=== PATIENT | female | born 1960 | race African-American/Black ===

== ENCOUNTER 2017-02-02 15:06 | Inpatient (IN) | payer MEDICARE, OTHER ==
--- NOTE | 2017-02-02 17:33 | HP ---
CIWA Score - CIWA Score Nausea/Vomitin-Mild Nausea/No Vomiting Muscle Tremors: 4-Moderate,w/Arms Extend Anxiety: 2 Agitation: 2 Paroxysmal Sweats: 1-Minimal Palms Moist Orientation: 3-Disoriented Date>2 days Tacttile Disturbances: 0-None Auditory Disturbances: 4-Moderate Hallucination Visual Disturbances: 0-None Headache: 3-Moderate CIWA-Ar Total Score: 20 Admission ROS BHS - HPI Chief Complaint: withdrawal sx Allergies/Adverse Reactions: Allergies Allergy/AdvReac Type Severity Reaction Status Date / Time chlordiazepoxide HCl Allergy Severe Swelling Verified 02/16/16 15:16 [From Librium] Beef Containing Products Allergy Mild Vomiting Verified 02/16/16 15:16 divalproex sodium Allergy Mild Rash Verified 02/16/16 15:16 [From Depakote] pork derived (porcine) Allergy Mild Vomiting Verified 02/16/16 15:16 [Pork derived (porcine)] quetiapine fumarate Allergy Mild Rash Verified 02/16/16 15:16 [From Seroquel] risperidone Allergy Unknown Rash Verified 02/16/16 15:16 lactose AdvReac Intermediate Verified 02/16/16 15:16 History of Present Illness: 56 years old female with long history of alcohol dependence, has asthma gerd and schizophrenia is admitted to detox Exam Limitations: No Limitations - Ebola screening Have you traveled outside of the country in the last 21 days: No Have you had contact with anyone from an Ebola affected area: No Have you been sick,other than usual withdrawal symptoms: No Do you have a fever: No - Review of Systems Constitutional: Chills, Changes in sleep, Weight Stable EENT: reports: Other (eye glasses) Respiratory: reports: SOB with Exertion Cardiac: reports: No Symptoms Reported GI: reports: Nausea, Poor Fluid Intake, Vomiting, Indigestion, Abdominal cramping : reports: No Symptoms Reported Musculoskeletal: reports: No Symptoms Reported Integumentary: reports: No Symptoms Reported Neuro: reports: Tremors Endocrine: reports: No Symptoms Reported Hematology: reports: No Symptoms Reported Psychiatric: reports: Judgement Intact, Depressed Other Systems: Reviewed and Negative Patient History - Patient Medical History Hx Anemia: No Hx Asthma: Yes Hx Chronic Obstructive Pulmonary Disease (COPD): No Hx Cancer: No Hx Cardiac Disorders: No Hx Congestive Heart Failure: No Hx Hypertension: Yes (alcohol withdrawal related) Hx Hypercholesterolemia: Yes ("HIGH LAST TIME I TOOK A TEST. I WATCH MY DIET") Hx Pacemaker: No HX Cerebrovascular Accident: No Hx Seizures: No Hx Dementia: No Hx Diabetes: No Hx Gastrointestinal Disorders: Yes Hx Liver Disease: No Hx Genitourinary Disorders: No Hx Sexually Transmitted Disorders: No Hx Renal Disease (ESRD): No Hx Thyroid Disease: No Hx Human Immunodeficiency Virus (HIV): No (NEGATIVE) Hx Hepatitis C: No Hx Depression: Yes Hx Suicide Attempt: Yes (2014 cut wrists) Hx Bipolar Disorder: No Hx Schizophrenia: No - Patient Surgical History Past Surgical History: Yes Hx Neurologic Surgery: No Hx Cataract Extraction: No Hx Cardiac Surgery: No Hx Lung Surgery: No Hx Breast Surgery: No Hx Breast Biopsy: No Hx Abdominal Surgery: No Hx Appendectomy: No Hx Cholecystectomy: No Hx Genitourinary Surgery: No Hx Section: Yes (X2) Hx Orthopedic Surgery: No Hx Hysterectomy: No Other Surgical History: incision and drainage, abscess, right armpit Anesthesia Reaction: No - PPD History Previous Implant?: Yes Documented Results: Negative w/proof Implanted On Prior [facility] Admission?: Yes Date: 04/13/15 Results: 0 mm PPD to be Administered?: Yes - Reproductive History Patient is a Female of Child Bearing Age (11 -55 yrs old): Yes Last Menstrual Period: 02/02/07 Patient : No - Smoking Cessation Smoking history: Never smoked Have you smoked in the past 12 months: No Aproximately how many cigarettes per day: 0 Cigars Per Day: 0 Hx Chewing Tobacco Use: No Initiated information on smoking cessation: Yes 'Breaking Loose' booklet given: 02/02/17 - Substance & Tx. History Hx Alcohol Use: Yes Hx Substance Use: No Substance Use Type: Alcohol Hx Substance Use Treatment: Yes - Substances Abused Alcohol Route: Oral Frequency: Daily Amount used: 3 BOTTLES OF WINE Age of first use: 17 Date of Last Use: 02/01/17 Family Disease History - Family Disease History Family Disease History: Respiratory: Grandparent (ASTHMA) Other Family History: never met parents Admission Physical Exam BHS - Vital Signs Vital Signs: Vital Signs - 24 hr 02/02/17 16:50 Temperature 97.9 F Pulse Rate 110 H Respiratory 18 Rate Blood Pressure 143/84 - Physical General Appearance: Yes: Appropriately Dressed, Moderate Distress, Obese, Tremorous, Irritable, Sweating, Anxious HEENTM: Yes: Hearing grossly Normal, Normal ENT Inspection, Normocephalic, Normal Voice Respiratory: Yes: Chest Non-Tender, Lungs Clear, Normal Breath Sounds, No Respiratory Distress, No Accessory Muscle Use Neck: Yes: Supple, Trachea in good position Breast: Yes: Breasts Symetrical Cardiology: Yes: Regular Rhythm, S1, S2, Tachycardia Abdominal: Yes: Non Tender, Soft Genitourinary: Yes: Within Normal Limits Back: Yes: Normal Inspection Musculoskeletal: Yes: full range of Motion, Gait Steady Extremities: Yes: Normal Range of Motion, Non-Tender, Tremors 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: Yes: Alert, Motor Strength 5/5, Normal Response, Depressed Affect Integumentary: Yes: Warm Lymphatic: Yes: Within Normal Limits - Diagnostic (1) Alcohol dependence with uncomplicated withdrawal Current Visit: Yes Status: Acute (2) Asthma Current Visit: Yes Status: Acute (3) Depression Current Visit: Yes Status: Suspected Qualifiers: Depression Type: dysthymia Qualified Code(s): F34.1 - Dysthymic disorder (4) Hypertension Current Visit: Yes Status: Acute Qualifiers: Hypertension type: other secondary hypertension Qualified Code(s): I15.8 - Other secondary hypertension Comment: alcohol withdrawal related (5) GERD (gastroesophageal reflux disease) Current Visit: Yes Status: Acute Qualifiers: Esophagitis presence: without esophagitis Qualified Code(s): K21.9 - Gastro-esophageal reflux disease without esophagitis Cleared for Admission S - Detox or Rehab [facility] Level of Care: Medically Managed Detox Regimen/Protocol: Valium S Breath Alcohol Content Breath Alcohol Content: 0 Vital Signs - Vital Signs Vital Signs Refused: No Temperature: 97.9 F Temperature Source: Oral Pulse Rate: 110 Respiratory Rate: 18 Blood Pressure: 143/84 BP Location: Left Arm Blood Pressure Position: Sitting - Height Height: 5 ft - Weight Weight: 192 lb Weight Measurement Method: Standing Scale Body Mass Index (BMI): 37.5 - Bowel Function Bowel Movement: Yes Urine Pregancy Test - Result Urine Test Results: Negative- NO Line Present Urine Drug Screen - Control Is Test Valid: Yes - Results Drug Screen Negative: No Urine Drug Screen Results: BZO-Benzodiazepines
[2017-02-02 17:38] VITALS: BMI 37.5
[2017-02-02] MEDS ORDERED: guaiFENesin/D-METHORPHAN HB 10 ML UNIT-DOSE CUPS PO PRN (17:46)
[2017-02-02] MEDS ORDERED: hydrOXYzine PAMOATE 50 MG CAPSULE (FP) PO PRN (17:46)
[2017-02-02] MEDS ORDERED: MENTHOL/PHENOL 1 EACH UD MM PRN (17:46)
[2017-02-02] MEDS ORDERED: MAG HYDROX/AL HYDROX/SIMETH 30 ML UNIT-DOSE CUP PO PRN (17:46)
[2017-02-02] MEDS ORDERED: ACETAMINOPHEN 325 MG TABLET (FP) PO PRN (17:46)
[2017-02-02] MEDS ORDERED: diphenhydrAMINE HCL 50 MG CAPSULE PO PRN (17:46)
[2017-02-02] MEDS ORDERED: MAGNESIUM HYDROX 2400MG/30ML ORAL SUSPENSION 30 ML CUP PO PRN (17:46)
[2017-02-02] MEDS ORDERED: diazePAM 5 MG TABLET PO PRN (17:46)
[2017-02-02] MEDS ORDERED: LOPERAMIDE HCL 2 MG CAPSULE PO PRN (17:46)
[2017-02-02] MEDS ORDERED: P-EPHED 60MG/TRIPROLIDI 2.5MG TABLET PO PRN (17:46)
[2017-02-02] MEDS ORDERED: MAGNESIUM CITRATE 300 ML BOTTLE PO PRN (17:46)
[2017-02-02] MEDS ORDERED: ALBUTEROL SO4 6.7 GM HFA INHALER IH PRN (17:49)
[2017-02-02] MEDS ORDERED: cloNIDine HCL 0.1 MG TABLET PO PRN (17:55)
[2017-02-02] MEDS ORDERED: diazePAM 5 MG TABLET PO ONE (18:15)
[2017-02-02] MEDS: RANITIDINE HCL 150 MG TABLET (FP) PO SCH (22:30)
[2017-02-02] MEDS: diazePAM 5 MG TABLET PO SCH (22:30)
[2017-02-02] MEDS: THIAMINE HCL 100 MG TABLET (FP) PO SCH (22:30)
[2017-02-03] MEDS: diazePAM 5 MG TABLET PO SCH ×3 (06:12→22:52)
--- NOTE | 2017-02-03 08:30 | CONSULT ---
[id number] [facility] Identifying data: This is 56 years old female with psychiatric hospitalization history intoxicated with: Alcohol, Benzodiazepins Substance Abuse History: Smoking Cessation. Smoking history: Never smoked. Have you smoked in the past 12 months: No. Aproximately how many cigarettes per day: 0. Cigars Per Day: 0. Hx Chewing Tobacco Use: No. Initiated information on smoking cessation: Yes. 'Breaking Loose' booklet given: . - Substance & Tx. History. Hx Alcohol Use: Yes. Hx Substance Use: No. Substance Use Type: Alcohol. Hx Substance Use Treatment: Yes. - Substances Abused. Alcohol. Route: Oral. Frequency: Daily. Amount used: 3 BOTTLES OF WINE. Age of first use: 17. Date of Last Use: 02/01/17 Medical History: Asthma, GERD, HTN, Obesity, Arthritis , Seizure history Psychiatric History: Patient reprots history of depression, reports taking prior to admission: Lexapro 10mg poqd, patirnt reports unclear psychiatric admission on amout 5 years ago at [facility] for [facility]. Physical/Sexual Abuse/Trauma History: Denies Additional Comment: Lexapro 10mg poqd Mental Status Exam - Mental Status Exam Alert and Oriented to: Person Cognitive Function: Fair Patient Appearance: Unkempt Mood: Sad Affect: Flat Patient Behavior: Sedated Speech Pattern: Delayed Voice Loudness: Mildly Soft/Quiet Thought Process: Circumstantial Thought Disorder: Being Controlled Hallucinations: Denies Suicidal Ideation: Denies Homicidal Ideation: Denies Sleep: Difficulty falling asleep Appetite: Weight gain Muscle strength/Tone: Mild Hypotonicity Gait/Station: Shuffling Additional Comments: Lexapro 10mg poqd Psychiatric Findings - Problem List ([place] 1, 2,3) (1) Alcohol dependence with uncomplicated withdrawal Status: Chronic (2) Depression Status: Chronic Qualifiers: Depression Type: dysthymia Qualified Code(s): F34.1 - Dysthymic disorder (3) Alcohol dependence, continuous Status: Chronic (4) Major depressive disorder, recurrent Status: Chronic (5) Major depressive disorder, recurrent, severe with psychotic features Status: Chronic (6) Obesity Status: Chronic Qualifiers: Obesity type: due to excess calories Obesity severity: non-morbid Qualified Code(s): E66.09 - Other obesity due to excess calories (7) Other and unspecified alcohol dependence, episodic drinking behavior Status: Chronic (8) Xanax use disorder, moderate, dependence Status: Chronic - Initial Treatment Plan Initial Treatment Plan: Lexapro 10mg poqd
--- NOTE | 2017-02-03 08:56 | PN ---
S CIWA - CIWA Score Nausea/Vomitin Muscle Tremors: 3 Anxiety: 3 Agitation: 3 Paroxysmal Sweats: 1-Minimal Palms Moist Orientation: 0-Oriented Tacttile Disturbances: 1-Very Mild Itch/Numbness Auditory Disturbances: 1-Very Mild Visual Disturbances: 1-Very Mild Sensitivity Headache: 2-Mild CIWA-Ar Total Score: 18 BHS Progress Note (SOAP) Subjective: ALERT,IRRITABLE,ANXIOUS,INTERRUPTED SLEEP,TREMOR Objective: 02/03/17 08:55 Vital Signs Temperature 97.6 F 02/03/17 06:24 Pulse Rate 78 02/03/17 06:24 Respiratory Rate 18 02/03/17 06:24 Blood Pressure 133/82 02/03/17 06:24 O2 Sat by Pulse Oximetry (%) EKG NSR,NORMAL ECG LABS PENDING Assessment: 02/03/17 08:56 WITHDRAWAL SYMPTOM Plan: CONTINUE DETOX
[2017-02-03 10:07] LABS: MCHC 33.3 g/dl (32.0-36.0); MEAN CELL VOLUME 93.1 fl (80-96); MEAN PLT VOLUME 9.3 fl (7.5-11.1); PLATELET COUNT 158 K/MM3 (134-434); RDW 14.5 % (11.6-15.6)
[2017-02-03 10:23] LABS: ALBUMIN 3.4 g/dl (3.4-5.0); ALK PHOS 64 U/L (45-117); ANION GAP 8 (8-16); BILIRUBIN,TOTAL 0.6 mg/dL (0.2-1.0); CALCIUM 8.9 mg/dL (8.5-10.1); CO2 30 mmol/L (21-32); CREATININE 0.7 mg/dL (0.55-1.02); GLUCOSE,RANDOM 99 mg/dL (74-106); SGOT/AST 18 U/L (15-37); SGPT/ALT 26 U/L (12-78); TOT PROT 6.9 g/dl (6.4-8.2)
[2017-02-03] MEDS: ESCITALOPRAM OXALATE 10 MG TABLET (FP) PO SCH (11:07)
[2017-02-03] MEDS: PRENATAL VITAMINS W/ FOLIC ACID TABLET (FP) PO SCH (11:07)
[2017-02-03] MEDS: RANITIDINE HCL 150 MG TABLET (FP) PO SCH ×2 (11:07→22:52)
[2017-02-03 14:13] LABS: SICKLE CELL SCREEN NEGATIVE (NEGATIVE)
--- NOTE | 2017-02-03 15:58 | EKG ---
Test Reason : Blood Pressure : / mmHG Vent. Rate : 084 BPM Atrial Rate : 084 BPM P-R Int : 162 ms QRS Dur : 092 ms QT Int : 382 ms P-R-T Axes : 068 034 043 degrees QTc Int : 451 ms NORMAL SINUS RHYTHM NORMAL ECG WHEN COMPARED WITH ECG OF 15-JUL-2012 12:12, NO SIGNIFICANT CHANGE WAS FOUND Confirmed by THELMA ORTIZ MD ([id number]) on 02/03/2017 3:58:27 PM Referred By: Confirmed By:THELMA ORTIZ MD
[2017-02-03] MEDS: THIAMINE HCL 100 MG TABLET (FP) PO SCH (22:52)
--- NOTE | 2017-02-04 09:23 | PN ---
S CIWA - CIWA Score Nausea/Vomitin Muscle Tremors: 3 Anxiety: 3 Agitation: 2 Paroxysmal Sweats: 1-Minimal Palms Moist Orientation: 0-Oriented Tacttile Disturbances: 1-Very Mild Itch/Numbness Auditory Disturbances: 1-Very Mild Visual Disturbances: 1-Very Mild Sensitivity Headache: 2-Mild CIWA-Ar Total Score: 17 BHS Progress Note (SOAP) Subjective: ALERT,IRRITABLE,ANXIOUS,INTERRUPTED SLEEP,TREMOR,DEPRESS Objective: 02/04/17 09:21 Vital Signs Temperature 98.2 F 02/04/17 06:14 Pulse Rate 96 H 02/04/17 06:14 Respiratory Rate 20 02/04/17 06:14 Blood Pressure 145/79 02/04/17 06:14 O2 Sat by Pulse Oximetry (%) Laboratory Last Values WBC 3.0 K/mm3 (4.0-10.0) L 02/03/17 07:00 RBC 4.02 M/mm3 (3.60-5.2) 02/03/17 07:00 Hgb 12.4 GM/dL (10.7-15.3) 02/03/17 07:00 Hct 37.4 % (32.4-45.2) 02/03/17 07:00 MCV 93.1 fl (80-96) 02/03/17 07:00 MCHC 33.3 g/dl (32.0-36.0) 02/03/17 07:00 RDW 14.5 % (11.6-15.6) 02/03/17 07:00 Plt Count 158 K/MM3 (134-434) 02/03/17 07:00 MPV 9.3 fl (7.5-11.1) 02/03/17 07:00 Sickle Cell Screen Negative (NEGATIVE) 02/03/17 07:00 Sodium 141 mmol/L (136-145) 02/03/17 07:00 Potassium 4.2 mmol/L (3.5-5.1) 02/03/17 07:00 Chloride 103 mmol/L (98-107) 02/03/17 07:00 Carbon Dioxide 30 mmol/L (21-32) 02/03/17 07:00 Anion Gap 8 (8-16) 02/03/17 07:00 BUN 15 mg/dL (7-18) D 02/03/17 07:00 Creatinine 0.7 mg/dL (0.55-1.02) 02/03/17 07:00 Creat Clearance w eGFR > 60 (>60) 02/03/17 07:00 Random Glucose 99 mg/dL (74-106) 02/03/17 07:00 Calcium 8.9 mg/dL (8.5-10.1) 02/03/17 07:00 Total Bilirubin 0.6 mg/dL (0.2-1.0) D 02/03/17 07:00 AST 18 U/L (15-37) 02/03/17 07:00 ALT 26 U/L (12-78) 02/03/17 07:00 Alkaline Phosphatase 64 U/L (45-117) 02/03/17 07:00 Total Protein 6.9 g/dl (6.4-8.2) 02/03/17 07:00 Albumin 3.4 g/dl (3.4-5.0) 02/03/17 07:00 RPR Titer Nonreactive (NONREACTIVE) 02/03/17 07:00 Assessment: 02/04/17 09:22 WITHDRAWAL SYMPTOM Plan: CONTINUE DETOX,PSYCHIATRIC REEVALUATION FOR DEPRESSION
[2017-02-04 10:13] LABS: URINE APPEARANCE CLEAR; URINE BILIRUBIN NEGATIVE (NEGATIVE); URINE BLOOD NEGATIVE (NEGATIVE); URINE COLOR LTYELLOW; URINE GLUCOSE (UA) NEGATIVE (NEGATIVE); URINE KETONE NEGATIVE (NEGATIVE); URINE LEUK ESTERASE NEGATIVE (NEGATIVE); URINE NITRITE NEGATIVE (NEGATIVE); URINE PROTEIN NEGATIVE (NEGATIVE); URINE UROBILINOGEN NEGATIVE E.U./dl (0.2-1.0)
[2017-02-04] MEDS: PRENATAL VITAMINS W/ FOLIC ACID TABLET (FP) PO SCH (10:30)
[2017-02-04] MEDS: diazePAM 5 MG TABLET PO SCH ×2 (10:31→22:38)
[2017-02-04] MEDS: RANITIDINE HCL 150 MG TABLET (FP) PO SCH ×2 (10:31→22:38)
[2017-02-04] MEDS: ESCITALOPRAM OXALATE 10 MG TABLET (FP) PO SCH (10:31)
[2017-02-04] MEDS: THIAMINE HCL 100 MG TABLET (FP) PO SCH (22:38)
[2017-02-05] MEDS: ESCITALOPRAM OXALATE 10 MG TABLET (FP) PO SCH (10:31)
[2017-02-05] MEDS: diazePAM 5 MG TABLET PO SCH ×2 (10:32→22:31)
[2017-02-05] MEDS: PRENATAL VITAMINS W/ FOLIC ACID TABLET (FP) PO SCH (10:32)
[2017-02-05] MEDS: RANITIDINE HCL 150 MG TABLET (FP) PO SCH ×2 (10:33→22:31)
--- NOTE | 2017-02-05 11:20 | PN ---
BHS Progress Note (SOAP) Subjective: Sweating,interrupted sleep,restless. Objective: 02/05/17 11:19 Vital Signs - 8 hr 02/05/17 02/05/17 03:30 06:00 Temperature 97.6 F Pulse Rate 72 Respiratory 18 20 Rate Blood Pressure 128/73 Laboratory Last Values WBC 3.0 K/mm3 (4.0-10.0) L 02/03/17 07:00 RBC 4.02 M/mm3 (3.60-5.2) 02/03/17 07:00 Hgb 12.4 GM/dL (10.7-15.3) 02/03/17 07:00 Hct 37.4 % (32.4-45.2) 02/03/17 07:00 MCV 93.1 fl (80-96) 02/03/17 07:00 MCHC 33.3 g/dl (32.0-36.0) 02/03/17 07:00 RDW 14.5 % (11.6-15.6) 02/03/17 07:00 Plt Count 158 K/MM3 (134-434) 02/03/17 07:00 MPV 9.3 fl (7.5-11.1) 02/03/17 07:00 Sickle Cell Screen Negative (NEGATIVE) 02/03/17 07:00 Sodium 141 mmol/L (136-145) 02/03/17 07:00 Potassium 4.2 mmol/L (3.5-5.1) 02/03/17 07:00 Chloride 103 mmol/L (98-107) 02/03/17 07:00 Carbon Dioxide 30 mmol/L (21-32) 02/03/17 07:00 Anion Gap 8 (8-16) 02/03/17 07:00 BUN 15 mg/dL (7-18) D 02/03/17 07:00 Creatinine 0.7 mg/dL (0.55-1.02) 02/03/17 07:00 Creat Clearance w eGFR > 60 (>60) 02/03/17 07:00 Random Glucose 99 mg/dL (74-106) 02/03/17 07:00 Calcium 8.9 mg/dL (8.5-10.1) 02/03/17 07:00 Total Bilirubin 0.6 mg/dL (0.2-1.0) D 02/03/17 07:00 AST 18 U/L (15-37) 02/03/17 07:00 ALT 26 U/L (12-78) 02/03/17 07:00 Alkaline Phosphatase 64 U/L (45-117) 02/03/17 07:00 Total Protein 6.9 g/dl (6.4-8.2) 02/03/17 07:00 Albumin 3.4 g/dl (3.4-5.0) 02/03/17 07:00 Urine Color Ltyellow 02/04/17 07:00 Urine Appearance Clear 02/04/17 07:00 Urine pH 6.0 (5.0-8.0) 02/04/17 07:00 Ur Specific [place] 1.017 (1.001-1.035) 02/04/17 07:00 Urine Protein Negative (NEGATIVE) 02/04/17 07:00 Urine Glucose (UA) Negative (NEGATIVE) 02/04/17 07:00 Urine Ketones Negative (NEGATIVE) 02/04/17 07:00 Urine Blood Negative (NEGATIVE) 02/04/17 07:00 Urine Nitrite Negative (NEGATIVE) 02/04/17 07:00 Urine Bilirubin Negative (NEGATIVE) 02/04/17 07:00 Urine Urobilinogen Negative E.U./dl (0.2-1.0) 02/04/17 07:00 Ur Leukocyte Esterase Negative (NEGATIVE) 02/04/17 07:00 RPR Titer Nonreactive (NONREACTIVE) 02/03/17 07:00 labs noted Assessment: 02/05/17 11:20 Withdrawal sx. Plan: Continue detox
--- NOTE | 2017-02-05 13:26 | PN ---
[facility] Progress Note Note: Psychiatry Attending's note (follow up) : Answering request for re-consult. Reason :unclear.Details not offered. Progress notes reviewed.Met with patient on this date. Ms Mott states that she has already been seen by " another doctor ". The patient is ambulatory,calm,friendly and well-mannered.Cognitively intact. She endorses good sleep,improved appetite,increased energy level and motivation. " My plan is to go downstairs to the rehab floor.I need to take good care of myself ". Mental status : No hallucinations,no delusions.Euthymic mood with appropriate/bright affect. Clear,logical,spontaneous and goal-directed speech.Adequate personal hygiene. Ms Mott denies suicidal/homicidal ideation,intent or plan.Patient is future- oriented. Baseline.Not a danger to self or others.No specific request from the patient.Doing fine. Uneventful detoxification treatment.Well tolerated.Benign hospital course. No indication for psychiatric intervention.
[2017-02-05] MEDS: THIAMINE HCL 100 MG TABLET (FP) PO SCH (22:31)
[2017-02-06] MEDS ORDERED: diazePAM 5 MG TABLET PO SCH (10:00)
[2017-02-06] MEDS: ESCITALOPRAM OXALATE 10 MG TABLET (FP) PO SCH (10:23)
[2017-02-06] MEDS: PRENATAL VITAMINS W/ FOLIC ACID TABLET (FP) PO SCH (10:23)
[2017-02-06] MEDS: RANITIDINE HCL 150 MG TABLET (FP) PO SCH ×2 (10:23→22:48)
--- NOTE | 2017-02-06 12:18 | PN ---
S Progress Note (SOAP) Subjective: ALERT,IRRITABLE,ANXIOUS,INTERRUPTED SLEEP Objective: 02/06/17 12:18 Vital Signs Temperature 98.2 F 02/06/17 10:00 Pulse Rate 94 H 02/06/17 10:00 Respiratory Rate 18 02/06/17 10:00 Blood Pressure 135/76 02/06/17 10:00 O2 Sat by Pulse Oximetry (%) Assessment: 02/06/17 12:18 WITHDRAWAL SYMPTOM Plan: CONTINUE DETOX
[2017-02-06] MEDS: THIAMINE HCL 100 MG TABLET (FP) PO SCH (22:48)
--- NOTE | 2017-02-07 08:39 | DS ---
[facility] Detox Discharge Summary Admission Date: 02/02/17 Discharge Date: 02/07/17 - History Present History: Alcohol Dependence, Sedative Dependence - Physical Exam Results Vital Signs: Vital Signs Temperature 97.5 F L 02/07/17 06:00 Pulse Rate 70 02/07/17 06:00 Respiratory Rate 18 02/07/17 06:00 Blood Pressure 139/77 02/07/17 06:00 O2 Sat by Pulse Oximetry (%) - Treatment Hospital Course: Detox Protocol Followed, Detoxed Safely, Responded well, Discharged Condition Good - Medication Discharge Medications: Ambulatory Orders Albuterol Sulfate Inhaler - [Ventolin HFA Inhaler -] 2 inh IH Q4HPO PRN #30 inh 01/21/14 Escitalopram Oxalate [Lexapro -] 10 mg PO DAILY #30 tablet 02/17/16 Escitalopram Oxalate [Lexapro -] 10 mg PO DAILY #30 tablet 02/03/17 Esomeprazole Magnesium 40 mg PO DAILY #30 02/07/17 - Diagnosis (1) Alcohol dependence with uncomplicated withdrawal Current Visit: Yes Status: Chronic (2) Asthma Current Visit: Yes Status: Chronic (3) GERD (gastroesophageal reflux disease) Current Visit: Yes Status: Chronic Qualifiers: Esophagitis presence: without esophagitis Qualified Code(s): K21.9 - Gastro-esophageal reflux disease without esophagitis (4) Hypertension Current Visit: Yes Status: Chronic Qualifiers: Hypertension type: essential hypertension Qualified Code(s): I10 - Essential (primary) hypertension (5) Xanax use disorder, moderate, dependence Current Visit: Yes Status: Chronic (6) Depression Current Visit: Yes Status: Chronic Qualifiers: Depression Type: dysthymia Qualified Code(s): F34.1 - Dysthymic disorder (7) Arthritis Current Visit: Yes Status: Chronic (8) Obesity Current Visit: Yes Status: Chronic Qualifiers: Obesity type: due to excess calories Obesity severity: non-morbid Qualified Code(s): E66.09 - Other obesity due to excess calories - AMA Did Patient Leave Against Medical Advice: No
[2017-02-07 09:56] VITALS: BP 141/73; PULSE 86; TEMP 98.1
[2017-02-07] MEDS: ESCITALOPRAM OXALATE 10 MG TABLET (FP) PO SCH (10:45)
[2017-02-07] MEDS: RANITIDINE HCL 150 MG TABLET (FP) PO SCH (10:45)
[2017-02-07] MEDS: PRENATAL VITAMINS W/ FOLIC ACID TABLET (FP) PO SCH (10:46)
== END 2017-02-07 11:40 | disposition other institution (70) | DRG 897 ==
LOC: YASAS 15:06 → Y6N 17:37
PROVIDERS: ADMIT Internal Medicine Addiction Medicine; ATTEND Internal Medicine Addiction Medicine
PROC: HZ2ZZZZ Detoxification Services for Substance Abuse Treatment (ICD-10-PCS; principal; 2017-02-07)
DX: F13.230 Sedative, hypnotic or anxiolytic dependence with withdrawal, uncomplicated (principal); F33.3 Major depressive disorder, recurrent, severe with psychotic symptoms; F10.230 Alcohol dependence with withdrawal, uncomplicated; F34.1 Dysthymic disorder; I10 Essential (primary) hypertension; K21.9 Gastro-esophageal reflux disease without esophagitis; M12.9 Arthropathy, unspecified; E66.09 Other obesity due to excess calories; Z68.37 Body mass index [BMI] 37.0-37.9, adult
CPT/HCPCS: 36415; 80053; 81003; 85027; 85660; 86593; 93005; 93010

== ENCOUNTER 2018-11-20 12:52 | Inpatient (IN) | payer OTHER ==
[2018-11-20 13:54] VITALS: BMI 37.0
--- NOTE | 2018-11-20 15:13 | HP ---
CIWA Score Nausea/Vomitin (vomiting x 1) Muscle Tremors: 3 Anxiety: 2 Agitation: 0-Normal Activity Paroxysmal Sweats: 3 Orientation: 1-Uncertain about Date Tacttile Disturbances: 0-None Auditory Disturbances: 0-None Visual Disturbances: 0-None Headache: 3-Moderate CIWA-Ar Total Score: 15 - Admission Criteria OASAS Guidelines: Admission for Medically Managed Detox: Requires at least one of the followin. CIWA greater than 12 2. Seizures within the past 24 hours 3. Delirium tremens within the past 24 hours 4. Hallucinations within the past 24 hours 5. Acute intervention needed for co occurring medical disorder 6. Acute intervention needed for co occurring psychiatric disorder 7. Severe withdrawal that cannot be handled at a lower level of care (continued vomiting, continued diarrhea, abnormal vital signs) requiring intravenous medication and/or fluids 8. Admission ROS [facility] - [facility] Chief Complaint: Alcohol withdrawal symptoms Allergies/Adverse Reactions: Allergies Allergy/AdvReac Type Severity Reaction Status Date / Time chlordiazepoxide HCl Allergy Severe Swelling Verified 08/02/18 19:19 [From Librium] Beef Containing Products Allergy Mild Vomiting Verified 08/02/18 19:19 divalproex sodium Allergy Mild Rash Verified 08/02/18 19:19 [From Depakote] pork derived (porcine) Allergy Mild Vomiting Verified 08/02/18 19:19 [Pork derived (porcine)] quetiapine fumarate Allergy Mild Rash Verified 08/02/18 19:19 [From Seroquel] risperidone Allergy Unknown Rash Verified 08/02/18 19:19 lactose AdvReac Intermediate Verified 08/02/18 19:19 History of Present Illness: 58 years old female with a long history of alcohol dependence is seeking admission to detox. Patient has multiple admissions to detox, last for the period 08/02/2018 - 08/06/2018. She reports 9 months of sobriety. She has medical history of Asthma, Hypertension, GERD, COPD, Hyperlipidemia, Osteoarthritis of the knees and depression. She reports suicide attempt in 1999 and denies suicidal ideation at this time. Exam Limitations: No Limitations - Ebola screening Have you traveled outside of the country in the last 21 days: No (N) Have you had contact with anyone from an Ebola affected area: No Have you been sick,other than usual withdrawal symptoms: No Do you have a fever: No - Review of Systems Constitutional: Chills, Loss of Appetite, Malaise, Night Sweats, Changes in sleep EENT: reports: Sinus Pressure Respiratory: reports: Shortness of Breath Cardiac: reports: No Symptoms Reported GI: reports: Poor Appetite, Poor Fluid Intake, Vomiting, Abdominal cramping : reports: No Symptoms Reported Musculoskeletal: reports: Back Pain, Muscle Pain, Muscle Weakness Integumentary: reports: Dryness Neuro: reports: Tremors Endocrine: reports: No Symptoms Reported Hematology: reports: No Symptoms Reported Psychiatric: reports: Anxious, Depressed Other Systems: Reviewed and Negative Patient History - Patient Medical History Hx Anemia: No Hx Asthma: Yes (Albuterol) Hx Chronic Obstructive Pulmonary Disease (COPD): Yes (Not on medication) Hx Cancer: No Hx Cardiac Disorders: No Hx Congestive Heart Failure: No Hx Hypertension: Yes (Not on medication) Hx Hypercholesterolemia: Yes (Not on medication) Hx Pacemaker: No HX Cerebrovascular Accident: No Hx Seizures: No Hx Dementia: No Hx Diabetes: No Hx Gastrointestinal Disorders: Yes (GERD -Prilosec) Hx Liver Disease: No Hx Genitourinary Disorders: No Hx Sexually Transmitted Disorders: No Hx Renal Disease (ESRD): No Hx Thyroid Disease: No Hx Human Immunodeficiency Virus (HIV): No (NEGATIVE 2016) Hx Hepatitis C: No Hx Depression: Yes (MDD diagnosed at 16 y.o.- Lexapro) Hx Suicide Attempt: Yes (Denies suicidal idation at this time) Hx Bipolar Disorder: No Hx Schizophrenia: No Other Medical History: Osteoarthritis - Not on medication - Patient Surgical History Past Surgical History: Yes Hx Neurologic Surgery: No Hx Cataract Extraction: No Hx Cardiac Surgery: No Hx Lung Surgery: No Hx Breast Surgery: No Hx Breast Biopsy: No Hx Abdominal Surgery: No Hx Appendectomy: No Hx Cholecystectomy: No Hx Genitourinary Surgery: No Hx Section: Yes (1981, 1982) Hx Orthopedic Surgery: No Hx Hysterectomy: No Other Surgical History: incision and drainage, abscess, right armpit Anesthesia Reaction: No - PPD History Previous Implant?: Yes Documented Results: Negative w/proof Implanted On Prior [facility] Admission?: Yes Date: 08/04/18 Results: 0 mm PPD to be Administered?: No - Reproductive History Patient is a Female of Child Bearing Age (11 -55 yrs old): Yes Last Menstrual Period: 11/22/01 LMP comment: Menopausa Patient : No - Smoking Cessation Smoking history: Never smoked Have you smoked in the past 12 months: No Aproximately how many cigarettes per day: 0 Cigars Per Day: 0 Hx Chewing Tobacco Use: No Initiated information on smoking cessation: No - Substance & Tx. History Hx Alcohol Use: Yes Hx Substance Use: No Substance Use Type: Alcohol Hx Substance Use Treatment: Yes ([facility]) - Substances Abused Alcohol Route: Oral Frequency: Daily Amount used: 4 bottles of red wine, 1 shot of bicardy rum Age of first use: 17 Date of Last Use: 11/20/18 Family Disease History - Family Disease History Family Disease History: Respiratory: Grandparent (ASTHMA) Admission Physical Exam [facility] - Vital Signs Vital Signs: Vital Signs - 24 hr 11/20/18 13:50 Temperature 98.0 F Pulse Rate 101 H Respiratory 19 Rate Blood Pressure 147/82 - Physical General Appearance: Yes: Moderate Distress, Tremorous, Irritable, Anxious HEENTM: Yes: EOMI, Normal ENT Inspection, Normal Voice, BETH, Nasal Congestion Respiratory: Yes: Wheezing Neck: Yes: Supple Breast: Yes: Breast Exam Deferred Cardiology: Yes: Tachycardia Abdominal: Yes: Normal Bowel Sounds, Soft Genitourinary: Yes: Within Normal Limits Back: Yes: Normal Inspection Extremities: Yes: Tremors 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, Alert, Normal Mood/Affect Integumentary: Yes: Warm Lymphatic: Yes: Within Normal Limits - Diagnostic (1) Osteoarthritis Current Visit: Yes Status: Chronic Qualifiers: Osteoarthritis location: knee Laterality: bilateral (2) Alcohol dependence with uncomplicated withdrawal Current Visit: Yes Status: Chronic (3) Arthritis Current Visit: No Status: Chronic (4) Asthma Current Visit: Yes Status: Chronic (5) Depression Current Visit: No Status: Chronic Qualifiers: Depression Type: unspecified Qualified Code(s): F32.9 - Major depressive disorder, single episode, unspecified (6) GERD (gastroesophageal reflux disease) Current Visit: Yes Status: Chronic Qualifiers: Esophagitis presence: without esophagitis Qualified Code(s): K21.9 - Gastro -esophageal reflux disease without esophagitis (7) Hypertension Current Visit: Yes Status: Chronic Qualifiers: Hypertension type: unspecified Qualified Code(s): I10 - Essential (primary ) hypertension Comment: alcohol withdrawal related Cleared for Admission [facility] - Detox or Rehab [facility] Level of Care: Medically Managed Detox Regimen/Protocol: Librium [facility] Breath Alcohol Content Breath Alcohol Content: 0 Urine Pregancy Test - Result Urine Test Results: Negative- NO Line Present Urine Drug Screen - Results Drug Screen Negative: No Urine Drug Screen Results: BZO-Benzodiazepines
[2018-11-20] MEDS ORDERED: ACETAMINOPHEN 325 MG TABLET (FP) PO PRN (15:32)
[2018-11-20] MEDS ORDERED: MAGNESIUM CITRATE 300 ML BOTTLE PO PRN (15:32)
[2018-11-20] MEDS ORDERED: MENTHOL/PHENOL 1 EACH UD MM PRN (15:32)
[2018-11-20] MEDS ORDERED: MAGNESIUM HYDROX 2400MG/30ML ORAL SUSPENSION 30 ML CUP PO PRN (15:32)
[2018-11-20] MEDS ORDERED: diazePAM 5 MG TABLET PO PRN (15:32)
[2018-11-20] MEDS ORDERED: guaiFENesin/D-METHORPHAN HB 10 ML UNIT-DOSE CUPS PO PRN (15:32)
[2018-11-20] MEDS ORDERED: LOPERAMIDE HCL 2 MG CAPSULE PO PRN (15:32)
[2018-11-20] MEDS ORDERED: diazePAM 5 MG TABLET PO ONE (16:00)
[2018-11-20] MEDS: ALBUTEROL SO4 8 GM HFA INHALER IH PRN ×2 (16:41→21:55)
[2018-11-20] MEDS: diazePAM 5 MG TABLET PO SCH (21:54)
[2018-11-20] MEDS ORDERED: MELATONIN 5 MG TABLETS PO PRN (22:00)
[2018-11-20] MEDS: THIAMINE HCL 100 MG TABLET (FP) PO SCH (22:02)
[2018-11-21] MEDS: diazePAM 5 MG TABLET PO SCH ×3 (05:52→23:53)
[2018-11-21] MEDS: ALBUTEROL SO4 8 GM HFA INHALER IH PRN (07:22)
[2018-11-21] MEDS: PRENATAL VITAMINS W/ FOLIC ACID TABLET (FP) PO SCH (10:25)
[2018-11-21 11:00] LABS: ALBUMIN 3.8 g/dl (3.4-5.0); ALK PHOS 73 U/L (45-117); ANION GAP 6 MMOL/L (8-16); BILIRUBIN,TOTAL 0.4 mg/dL (0.2-1); BLOOD UREA NITROGEN 11 mg/dL (7-18); CALCIUM 8.8 mg/dL (8.5-10.1); CHLORIDE 105 mmol/L (98-107); CO2 29 mmol/L (21-32); CREATININE 0.7 mg/dL (0.55-1.3); GLUCOSE,RANDOM 95 mg/dL (74-106); POTASSIUM 4.2 mmol/L (3.5-5.1); SGOT/AST 31 U/L (15-37); SGPT/ALT 36 U/L (13-61); SODIUM 140 mmol/L (136-145); TOT PROT 7.4 g/dl (6.4-8.2)
[2018-11-21 11:20] LABS: HEMATOCRIT 39.8 % (32.4-45.2); HEMOGLOBIN 13.7 GM/dL (10.7-15.3); MCHC 34.4 g/dl (32.0-36.0); MEAN PLT VOLUME 10.6 fl (7.5-11.1); PLATELET COUNT 159 K/MM3 (134-434); RBC 4.28 M/mm3 (3.60-5.2); RDW 15.5 % (11.6-15.6); WHITE BLOOD COUNT 4.6 K/mm3 (4.0-10.0)
--- NOTE | 2018-11-21 12:17 | PN ---
S CIWA - CIWA Score Nausea/Vomitin Muscle Tremors: 3 Anxiety: 2 Agitation: 2 Paroxysmal Sweats: 3 Orientation: 0-Oriented Tacttile Disturbances: 1-Very Mild Itch/Numbness Auditory Disturbances: 0-None Visual Disturbances: 0-None Headache: 0-None Present CIWA-Ar Total Score: 13 [facility] Progress Note (SOAP) Subjective: interrupted sleep, sweats, shakes, Objective: 11/21/18 12:14 Vital Signs Temperature 97.7 F 11/21/18 09:28 Pulse Rate 97 H 11/21/18 09:28 Respiratory Rate 18 11/21/18 09:28 Blood Pressure 124/66 11/21/18 09:28 O2 Sat by Pulse Oximetry (%) Laboratory Tests 11/21/18 11/21/18 11/21/18 07:50 07:50 07:50 WBC 4.6 RBC 4.28 Hgb 13.7 Hct 39.8 MCV 93.0 MCH 32.0 MCHC 34.4 RDW 15.5 Plt Count 159 MPV 10.6 D Platelet Comment No clumping noted Sodium 140 Potassium 4.2 Chloride 105 Carbon Dioxide 29 Anion Gap 6 L BUN 11 Creatinine 0.7 Creat Clearance w eGFR > 60 Random Glucose 95 Calcium 8.8 Total Bilirubin 0.4 AST 31 ALT 36 Alkaline Phosphatase 73 Total Protein 7.4 Albumin 3.8 RPR Titer HIV 1&2 Antibody Screen Negative HIV P24 Antigen Negative 11/21/18 07:50 WBC RBC Hgb Hct MCV MCH MCHC RDW Plt Count MPV Platelet Comment Sodium Potassium Chloride Carbon Dioxide Anion Gap BUN Creatinine Creat Clearance w eGFR Random Glucose Calcium Total Bilirubin AST ALT Alkaline Phosphatase Total Protein Albumin RPR Titer Nonreactive HIV 1&2 Antibody Screen HIV P24 Antigen pt aox3in nad ambulating , mild tremor Assessment: 11/21/18 12:15 withdrawal sx's Plan: cont. detox increase fluids
[2018-11-21] MEDS: BUDESONIDE/FORMETEROL FUMARATE 80/4.5 mcg INHALER IH SCH (23:51)
[2018-11-21] MEDS: THIAMINE HCL 100 MG TABLET (FP) PO SCH (23:54)
[2018-11-22] MEDS: MAG HYDROX/AL HYDROX/SIMETH 30 ML UNIT-DOSE CUP PO PRN ×2 (05:03→17:27)
[2018-11-22] MEDS: IBUPROFEN 400 MG TABLET (FP) PO PRN (06:23)
[2018-11-22] MEDS: PRENATAL VITAMINS W/ FOLIC ACID TABLET (FP) PO SCH (10:16)
[2018-11-22] MEDS: diazePAM 5 MG TABLET PO SCH ×2 (10:16→22:35)
[2018-11-22] MEDS: BUDESONIDE/FORMETEROL FUMARATE 80/4.5 mcg INHALER IH SCH ×2 (10:17→22:35)
--- NOTE | 2018-11-22 12:27 | PN ---
[facility] CIWA - CIWA Score Nausea/Vomitin-No Nausea/No Vomiting Muscle Tremors: 3 Anxiety: 3 Agitation: 3 Paroxysmal Sweats: 3 Orientation: 0-Oriented Tacttile Disturbances: 0-None Auditory Disturbances: 0-None Visual Disturbances: 0-None Headache: 0-None Present CIWA-Ar Total Score: 12 [facility] Progress Note (SOAP) Subjective: sweats shakes interrupted sleep body aches diarrhea Objective: 11/22/18 12:57 Vital Signs Temperature 97.9 F 11/22/18 09:35 Pulse Rate 101 H 11/22/18 09:35 Respiratory Rate 20 11/22/18 09:35 Blood Pressure 130/55 L 11/22/18 09:35 O2 Sat by Pulse Oximetry (%) Laboratory Tests 11/21/18 11/21/18 11/21/18 07:50 07:50 07:50 WBC 4.6 RBC 4.28 Hgb 13.7 Hct 39.8 MCV 93.0 MCH 32.0 MCHC 34.4 RDW 15.5 Plt Count 159 MPV 10.6 D Platelet Comment No clumping noted Sodium 140 Potassium 4.2 Chloride 105 Carbon Dioxide 29 Anion Gap 6 L BUN 11 Creatinine 0.7 Creat Clearance w eGFR > 60 Random Glucose 95 Calcium 8.8 Total Bilirubin 0.4 AST 31 ALT 36 Alkaline Phosphatase 73 Total Protein 7.4 Albumin 3.8 RPR Titer HIV 1&2 Antibody Screen Negative HIV P24 Antigen Negative 11/21/18 07:50 WBC RBC Hgb Hct MCV MCH MCHC RDW Plt Count MPV Platelet Comment Sodium Potassium Chloride Carbon Dioxide Anion Gap BUN Creatinine Creat Clearance w eGFR Random Glucose Calcium Total Bilirubin AST ALT Alkaline Phosphatase Total Protein Albumin RPR Titer Nonreactive HIV 1&2 Antibody Screen HIV P24 Antigen aaox3 ambulating no acute distress Assessment: 11/22/18 12:57 withdrawal sx Plan: continue detox increase fluids immodium prn
[2018-11-22] MEDS: ALBUTEROL SO4 8 GM HFA INHALER IH PRN (22:35)
[2018-11-22] MEDS: THIAMINE HCL 100 MG TABLET (FP) PO SCH (22:36)
--- NOTE | 2018-11-23 09:02 | PN ---
[facility] Progress Note (SOAP) Subjective: feeling better little anxiety Objective: 11/23/18 08:57 Vital Signs Temperature 98.8 F 11/23/18 06:03 Pulse Rate 102 H 11/23/18 06:03 Respiratory Rate 20 11/23/18 06:03 Blood Pressure 132/77 11/23/18 06:03 O2 Sat by Pulse Oximetry (%) aaox3 ambulating no acute distress Assessment: 11/23/18 08:58 mild withdrawal sx Plan: continue detox increase fluids d/c in am
[2018-11-23] MEDS: diazePAM 5 MG TABLET PO SCH ×2 (10:04→22:30)
[2018-11-23] MEDS: BUDESONIDE/FORMETEROL FUMARATE 80/4.5 mcg INHALER IH SCH ×2 (10:04→22:31)
[2018-11-23] MEDS: PRENATAL VITAMINS W/ FOLIC ACID TABLET (FP) PO SCH (10:05)
[2018-11-23] MEDS: ALBUTEROL SO4 8 GM HFA INHALER IH PRN ×2 (11:35→20:58)
[2018-11-23] MEDS: P-EPHED 60MG/TRIPROLIDI 2.5MG TABLET PO PRN (20:58)
[2018-11-23] MEDS: THIAMINE HCL 100 MG TABLET (FP) PO SCH (22:30)
[2018-11-24] MEDS: P-EPHED 60MG/TRIPROLIDI 2.5MG TABLET PO PRN (02:19)
[2018-11-24] MEDS: IBUPROFEN 400 MG TABLET (FP) PO PRN (05:59)
[2018-11-24] MEDS ORDERED: diazePAM 5 MG TABLET PO SCH ×2 (06:00→10:00)
--- NOTE | 2018-11-24 09:02 | DS ---
[facility] Detox Discharge Summary Admission Date: 11/20/18 Discharge Date: 11/24/18 - History Present History: Alcohol Dependence - Physical Exam Results Vital Signs: Vital Signs Temperature 97.5 F L 11/24/18 07:50 Pulse Rate 92 H 11/24/18 07:50 Respiratory Rate 20 11/24/18 07:50 Blood Pressure 116/72 11/24/18 07:50 O2 Sat by Pulse Oximetry (%) - Treatment Hospital Course: Detox Protocol Followed, Detoxed Safely, Responded well, Discharged Condition Good, Rehab Referral Accepted - Medication Discharge Medications: Ambulatory Orders Escitalopram Oxalate [Lexapro -] 10 mg PO DAILY #30 tablet 02/17/16 Esomeprazole Magnesium 40 mg PO DAILY #30 02/07/17 Escitalopram Oxalate [Lexapro -] 10 mg PO DAILY #30 tablet 08/03/18 Albuterol Sulfate Inhaler - [Ventolin HFA Inhaler -] 2 inh IH Q4HPO PRN #1 inh 08/06/18 - Diagnosis (1) Alcohol dependence with uncomplicated withdrawal Current Visit: Yes Status: Chronic (2) Asthma Current Visit: Yes Status: Chronic (3) GERD (gastroesophageal reflux disease) Current Visit: Yes Status: Chronic Qualifiers: Esophagitis presence: without esophagitis Qualified Code(s): K21.9 - Gastro -esophageal reflux disease without esophagitis (4) Hypertension Current Visit: Yes Status: Chronic Qualifiers: Hypertension type: unspecified Qualified Code(s): I10 - Essential (primary ) hypertension (5) Osteoarthritis Current Visit: Yes Status: Chronic Qualifiers: Osteoarthritis location: knee Laterality: bilateral (6) Alcohol-induced mood disorder Current Visit: No Status: Acute (7) Depressive disorder Current Visit: No Status: Acute (8) Arthritis Current Visit: No Status: Chronic (9) Depression Current Visit: No Status: Chronic Qualifiers: Depression Type: unspecified Qualified Code(s): F32.9 - Major depressive disorder, single episode, unspecified (10) Major depressive disorder, recurrent Current Visit: No Status: Chronic (11) Obesity Current Visit: No Status: Chronic Qualifiers: Obesity type: due to excess calories (12) Seizure Current Visit: No Status: Chronic (13) Schizophrenia Current Visit: No Status: Suspected Qualifiers: Schizophrenia type: unspecified Qualified Code(s): F20.9 - Schizophrenia, unspecified - AMA Did Patient Leave Against Medical Advice: No (going home)
[2018-11-24 09:17] VITALS: BP 152/74; PULSE 93; TEMP 97.9
== END 2018-11-24 09:00 | disposition home or self-care (01) | DRG 897 ==
LOC: YASAS 12:52 → Y6N 15:38
PROC: HZ2ZZZZ Detoxification Services for Substance Abuse Treatment (ICD-10-PCS; principal; 2018-11-20)
DX: F10.230 Alcohol dependence with withdrawal, uncomplicated (principal); F33.9 Major depressive disorder, recurrent, unspecified; F10.24 Alcohol dependence with alcohol-induced mood disorder; F20.9 Schizophrenia, unspecified; I10 Essential (primary) hypertension; K21.9 Gastro-esophageal reflux disease without esophagitis; J45.909 Unspecified asthma, uncomplicated; M17.0 Bilateral primary osteoarthritis of knee; R00.0 Tachycardia, unspecified; E66.9 Obesity, unspecified; Z68.37 Body mass index [BMI] 37.0-37.9, adult; Z86.69 Personal history of other diseases of the nervous system and sense organs; Z88.8 Allergy status to other drugs, medicaments and biological substances; Z91.5 Personal history of self-harm
CPT/HCPCS: 36415; 80053; 85027; 86593; 87389

== ENCOUNTER 2019-02-28 14:44 | Inpatient (IN) | payer OTHER ==
--- NOTE | 2019-02-28 17:43 | HP ---
CIWA Score Nausea/Vomitin-Int. Nausea w/Dry Heave (vomitted x 3) Muscle Tremors: 1-None Visible, but [place] Anxiety: 3 Agitation: 0-Normal Activity Paroxysmal Sweats: 2 Orientation: 0-Oriented Tacttile Disturbances: 1-Very Mild Itch/Numbness Auditory Disturbances: 0-None Visual Disturbances: 1-Very Mild Sensitivity Headache: 3-Moderate CIWA-Ar Total Score: 15 - Admission Criteria OASAS Guidelines: Admission for Medically Managed Detox: Requires at least one of the followin. CIWA greater than 12 2. Seizures within the past 24 hours 3. Delirium tremens within the past 24 hours 4. Hallucinations within the past 24 hours 5. Acute intervention needed for co occurring medical disorder 6. Acute intervention needed for co occurring psychiatric disorder 7. Severe withdrawal that cannot be handled at a lower level of care (continued vomiting, continued diarrhea, abnormal vital signs) requiring intravenous medication and/or fluids 8. Patient presents the following: CIWA greater than 12 Admission Criteria Met: Admission criteria met Admission ROS [facility] Chief Complaint: " alcohol detox " Allergies/Adverse Reactions: Allergies Allergy/AdvReac Type Severity Reaction Status Date / Time chlordiazepoxide HCl Allergy Severe Swelling Verified 08/02/18 19:19 [From Librium] Beef Containing Products Allergy Mild Vomiting Verified 08/02/18 19:19 divalproex sodium Allergy Mild Rash Verified 08/02/18 19:19 [From Depakote] pork derived (porcine) Allergy Mild Vomiting Verified 08/02/18 19:19 [Pork derived (porcine)] quetiapine fumarate Allergy Mild Rash Verified 08/02/18 19:19 [From Seroquel] risperidone Allergy Unknown Rash Verified 08/02/18 19:19 lactose AdvReac Intermediate Verified 08/02/18 19:19 History of Present Illness: 58 yo female with history of alcohol dependence is here seeking detox, this is one of multiple admissions d/t relapse, motivated to attend rehabilitation upon completing detox. Last detox [facility] October 2018. Longest period of sobriety nine months, reports currently drinks three bottles of wine and two pints of vodka per day for the past two years. reports medical history of Asthma, bilateral cataracts, Hypertension, GERD, COPD, Hyperlipidemia, Osteoarthritis of the knees. Reports psych dx of depression on lexapro. She reports suicide attempt in 1999 and denies suicidal ideation at this time. Denies suicidal / homicidal ideation. Reports hx of ETOH blackouts with last period two days ago. Denies hx of seizures or DTS. Exam Limitations: No Limitations - Ebola screening Have you traveled outside of the country in the last 21 days: No Have you had contact with anyone from an Ebola affected area: No Do you have a fever: No - Review of Systems Constitutional: Chills, Changes in sleep, Unintentional Wgt. Loss, Other ( fatigue, feel shaky) EENT: reports: See HPI Respiratory: reports: No Symptoms reported Cardiac: reports: No Symptoms Reported GI: reports: Diarrhea, Nausea, Poor Appetite, Poor Fluid Intake, Vomiting, Indigestion : reports: No Symptoms Reported Musculoskeletal: reports: Joint Pain (b/l knees) Integumentary: reports: No Symptoms Reported Neuro: reports: Headache, Dizziness Endocrine: reports: Increased Thirst Hematology: reports: No Symptoms Reported Psychiatric: reports: Orientated x3, Anxious Other Systems: Reviewed and Negative Patient History - Patient Medical History Hx Anemia: No Hx Asthma: Yes (Albuterol) Hx Chronic Obstructive Pulmonary Disease (COPD): Yes (Not on medication) Hx Cancer: No Hx Cardiac Disorders: No Hx Congestive Heart Failure: No Hx Hypertension: Yes (Not on medication) Hx Hypercholesterolemia: Yes (Not on medication) Hx Pacemaker: No HX Cerebrovascular Accident: No Hx Seizures: No Hx Dementia: No Hx Diabetes: No Hx Gastrointestinal Disorders: Yes (GERD -Prilosec) Hx Liver Disease: No Hx Genitourinary Disorders: No Hx Sexually Transmitted Disorders: No Hx Renal Disease (ESRD): No Hx Thyroid Disease: No Hx Human Immunodeficiency Virus (HIV): No (NEGATIVE 2016) Hx Hepatitis C: No Hx [facility]: Yes [facility] 16 [facility] Hx Suicide Attempt: Yes (Denies suicidal idation at this time) Hx Bipolar Disorder: No Hx Schizophrenia: No - Patient Surgical History Past Surgical History: Yes Hx Neurologic Surgery: No Hx Cataract Extraction: No Hx Cardiac Surgery: No Hx Lung Surgery: No Hx Breast Surgery: No Hx Breast Biopsy: No Hx Abdominal Surgery: No Hx Appendectomy: No Hx Cholecystectomy: No Hx Genitourinary Surgery: No Hx Section: Yes (1981, 1982) Hx Orthopedic Surgery: No Hx Hysterectomy: No Other Surgical History: incision and drainage, abscess, right armpit Anesthesia Reaction: No - PPD History Date: 08/04/18 Results: 0 mm - Reproductive History Last Menstrual Period: 11/22/01 - Smoking Cessation Smoking history: Never smoked Have you smoked in the past 12 months: No Aproximately how many cigarettes per day: 0 Cigars Per Day: 0 Hx Chewing Tobacco Use: No Initiated information on smoking cessation: No - Substance & Tx. History Hx Alcohol Use: Yes Hx Substance Use: Yes Substance Use Type: Alcohol Hx Substance Use Treatment: Yes ([facility]ox [facility] October 2018) - Substances abused Alcohol Substance route: Oral Frequency: Daily Amount used: 3 bottles red wine and 2 pints vodka Age of first use: 17 Date of last use: 02/28/19 Family Disease History - Family Disease History Family Disease History: Respiratory: Grandparent (ASTHMA) Admission Physical Exam [facility] - Physical General Appearance: Yes: Disheveled, Obese HEENTM: Yes: EOMI, Hearing grossly Normal, Normal ENT Inspection, Normocephalic , Normal Voice, BETH, Pharynx Normal, Tm's normal Respiratory: Yes: Chest Non-Tender, No Respiratory Distress, No Accessory Muscle Use, Wheezing Neck: Yes: Within Normal Limits Breast: Yes: Breast Exam Deferred Cardiology: Yes: Regular Rhythm, Tachycardia Abdominal: Yes: Normal Bowel Sounds, Non Tender, Soft, Protuberent Genitourinary: Yes: Within Normal Limits Back: Yes: Within Normal Limits Musculoskeletal: Yes: full range of Motion, Gait Steady, Pelvis Stable, Other (b /t knee pain, no effusion) Extremities: Yes: Normal Capillary Refill, Normal Inspection, Normal Range of Motion 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 - Diagnostic (1) Alcohol dependence with uncomplicated withdrawal Current Visit: Yes Status: Chronic (2) Arthritis Current Visit: Yes Status: Chronic (3) Asthma Current Visit: Yes Status: Chronic (4) GERD (gastroesophageal reflux disease) Current Visit: Yes Status: Chronic Qualifiers: Esophagitis presence: without esophagitis Qualified Code(s): K21.9 - Gastro -esophageal reflux disease without esophagitis (5) Hypertension Current Visit: Yes Status: Chronic Qualifiers: Hypertension type: essential hypertension Qualified Code(s): I10 - Essential (primary) hypertension Comment: alcohol withdrawal related (6) Obesity Current Visit: Yes Status: Chronic Qualifiers: Obesity type: due to excess calories Cleared for Admission [facility] - Detox or Rehab S Level of Care: Medically Managed Detox Regimen/Protocol: Librium Breathalyzer - Breathalyzer Breathalyzer: 0 POC Urine test - Test device test lot number: [id number] Expiration date: 07/28/20 - Control test control: Yes - Result Urine Test Results: Negative - NO line present Urine Drug Screen - Test Device Lot number: [id number] Expiration date: 02/25/20 - Control Is test valid?: Yes - Results Drug screen NEGATIVE: Yes Inpatient Rehab Admission - Rehab Decision to Admit Inpatient rehab admission?: No
[2019-02-28] MEDS ORDERED: ALBUTEROL SO4 8 GM HFA INHALER IH PRN (17:54)
[2019-02-28] MEDS ORDERED: hydrOXYzine PAMOATE 25 MG CAPSULE (FP) PO PRN (17:57)
[2019-02-28] MEDS ORDERED: MENTHOL/PHENOL 1 EACH UD MM PRN (17:57)
[2019-02-28] MEDS ORDERED: MAGNESIUM HYDROX 2400MG/30ML ORAL SUSPENSION 30 ML CUP PO PRN (17:57)
[2019-02-28] MEDS ORDERED: BISMUTH SUBSALICYLATE 524 MG/30 ML UD PO PRN (17:57)
[2019-02-28] MEDS ORDERED: IBUPROFEN 400 MG TABLET (FP) PO PRN (17:57)
[2019-02-28] MEDS ORDERED: MAGNESIUM CITRATE 300 ML BOTTLE PO PRN (17:57)
[2019-02-28] MEDS ORDERED: ACETAMINOPHEN 325 MG TABLET (FP) PO PRN ×2 (17:57)
[2019-02-28] MEDS ORDERED: MELATONIN 5 MG TABLETS PO PRN (17:57)
[2019-02-28] MEDS ORDERED: METHOCARBAMOL 500 MG TABLET PO PRN (17:57)
[2019-02-28] MEDS: diazePAM 5 MG TABLET PO PRN (19:07)
[2019-02-28] MEDS: diazePAM 5 MG TABLET PO SCH (22:51)
[2019-02-28] MEDS: THIAMINE HCL 100 MG TABLET (FP) PO SCH (22:51)
[2019-03-01] MEDS: diazePAM 5 MG TABLET PO SCH ×3 (05:41→22:21)
[2019-03-01] MEDS: MAG HYDROX/AL HYDROX/SIMETH 30 ML UNIT-DOSE CUP PO PRN ×2 (08:33→17:36)
[2019-03-01] MEDS ORDERED: SIMETHICONE 80 MG TAB.CHEW (FP) PO PRN (08:55)
--- NOTE | 2019-03-01 08:55 | PN ---
S CIWA - CIWA Score Nausea/Vomitin-No Nausea/No Vomiting Muscle Tremors: 4-Moderate,w/Arms Extend Anxiety: 4-Mod. Anxious/Guarded Agitation: 4-Moderately Restless Paroxysmal Sweats: 3 Orientation: 0-Oriented Tacttile Disturbances: 0-None Auditory Disturbances: 0-None Visual Disturbances: 0-None Headache: 0-None Present CIWA-Ar Total Score: 15 [facility] Progress Note (SOAP) Subjective: upset stomach ache sweats shakes interrupted sleep agitation nausea dizzy gas Objective: 03/01/19 08:54 Vital Signs Temperature 97.7 F 03/01/19 07:51 Pulse Rate 85 03/01/19 07:51 Respiratory Rate 18 03/01/19 07:51 Blood Pressure 141/88 03/01/19 07:51 O2 Sat by Pulse Oximetry (%) labs pending aaox3 ambulating no acute distress Assessment: 03/01/19 08:54 withdrawal sx Plan: continue detox increase fluids MOM prn gas x ordered pending labs
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
[2019-03-01 10:21] LABS: ALBUMIN 3.3 g/dl (3.4-5.0); ALK PHOS 59 U/L (45-117); BILIRUBIN,TOTAL 0.4 mg/dL (0.2-1); BLOOD UREA NITROGEN 16 mg/dL (7-18); CALCIUM 8.8 mg/dL (8.5-10.1); CHLORIDE 106 mmol/L (98-107); CO2 30 mmol/L (21-32); CREATININE 0.6 mg/dL (0.55-1.3); GLUCOSE,RANDOM 90 mg/dL (74-106); SGOT/AST 16 U/L (15-37); SGPT/ALT 27 U/L (13-61); SODIUM 142 mmol/L (136-145)
[2019-03-01] MEDS: PRENATAL VITAMINS W/ FOLIC ACID TABLET (FP) PO SCH (10:22)
[2019-03-01] MEDS: PANTOPRAZOLE 40 MG TABLET (FP) PO SCH (10:22)
[2019-03-01 10:24] LABS: ANION GAP 7 MMOL/L (8-16)
[2019-03-01] MEDS: diazePAM 5 MG TABLET PO PRN (10:24)
[2019-03-01] MEDS: ESCITALOPRAM OXALATE 10 MG TABLET (FP) PO SCH (10:24)
[2019-03-01 10:27] LABS: HEMATOCRIT 38.9 % (32.4-45.2); HEMOGLOBIN 12.8 GM/dL (10.7-15.3); MCH 30.8 pg (25.7-33.7); MEAN CELL VOLUME 93.4 fl (80-96); MEAN PLT VOLUME 9.4 fl (7.5-11.1); PLATELET COUNT 188 K/MM3 (134-434); RBC 4.16 M/mm3 (3.60-5.2); RDW 14.5 % (11.6-15.6); WHITE BLOOD COUNT 3.4 K/mm3 (4.0-10.0)
[2019-03-01 17:19] LABS: EPI CELLS 4.4 /HPF (0-5); URINE APPEARANCE CLEAR; URINE BACTERIA 19.1 /hpf (NEGATIVE); URINE BILIRUBIN NEGATIVE (NEGATIVE); URINE CASTS 9 /hpf (0-8); URINE COLOR YELLOW; URINE GLUCOSE (UA) NEGATIVE (NEGATIVE); URINE KETONE TRACE (NEGATIVE); URINE LEUK ESTERASE 2+ (NEGATIVE); URINE NITRITE NEGATIVE (NEGATIVE); URINE PROTEIN NEGATIVE (NEGATIVE); URINE RBC 1 /hpf (0-4); URINE UROBILINOGEN 0.2 mg/dL (0.2-1.0); URINE WBC 5 /hpf (0-5)
[2019-03-01] MEDS: THIAMINE HCL 100 MG TABLET (FP) PO SCH (22:51)
[2019-03-02] MEDS: PRENATAL VITAMINS W/ FOLIC ACID TABLET (FP) PO SCH (10:30)
[2019-03-02] MEDS: PANTOPRAZOLE 40 MG TABLET (FP) PO SCH (10:30)
[2019-03-02] MEDS: ESCITALOPRAM OXALATE 10 MG TABLET (FP) PO SCH (10:30)
[2019-03-02] MEDS: diazePAM 5 MG TABLET PO SCH ×2 (10:32→23:07)
--- NOTE | 2019-03-02 13:12 | PN ---
S CIWA - CIWA Score Nausea/Vomitin-No Nausea/No Vomiting Muscle Tremors: 3 Anxiety: 2 Agitation: 2 Paroxysmal Sweats: 2 Orientation: 0-Oriented Tacttile Disturbances: 0-None Auditory Disturbances: 0-None Visual Disturbances: 0-None Headache: 0-None Present CIWA-Ar Total Score: 9 [facility] Progress Note (SOAP) Subjective: tired body aches Objective: 03/02/19 13:12 Vital Signs Temperature 97.9 F 03/02/19 09:41 Pulse Rate 95 H 03/02/19 09:41 Respiratory Rate 18 03/02/19 09:41 Blood Pressure 137/75 03/02/19 09:41 O2 Sat by Pulse Oximetry (%) aaox3 ambulating no acute distress Assessment: 03/02/19 13:12 mild withdrawal sx Plan: continue detox increase fluids d/c in am
--- NOTE | 2019-03-02 17:51 | PN ---
[facility] Progress Note Note: Psychiatry Attending's note : Called by nurse. Request for prescription. Patient is scheduled for discharge to [facility]. Needs script for 30-day supply of lexapro 10 mg/day. Chart reviewed. Medication regimen is revisited. Case discussed, in person, with dehydrator operator Gianluca Davila. Script for lexapro 10 mg po daily # 30. Written. Electronically sent to [facility].
[2019-03-02] MEDS: THIAMINE HCL 100 MG TABLET (FP) PO SCH (23:07)
[2019-03-03] MEDS: MAG HYDROX/AL HYDROX/SIMETH 30 ML UNIT-DOSE CUP PO PRN (05:09)
[2019-03-03] MEDS ORDERED: diazePAM 5 MG TABLET PO SCH (06:00)
[2019-03-03 10:10] VITALS: BP 144/67; PULSE 78; TEMP 98.2
--- NOTE | 2019-03-03 10:13 | PN ---
[facility] Progress Note Note: Psychiatry Attending's note : Came to [address] [place] [address]. Brief interview with patient. Purpose : informed consent. Side effects/benefits of lexapro are discussed with the patient. Ms Mott is receptive to teaching. Observed as a good historian. She confirms current [facility] care with psychiatrist Dr Bailon. " I have been on lexapro for a number of years. No problems ". Patient is accurate about dose and indication. Feels fine. Motivated for transition to rehabilitative care at [facility]. Agrees to stay on lexapro. Stable mental status.
--- NOTE | 2019-03-03 15:57 | PN ---
S Progress Note (SOAP) Subjective: no complaints offered Objective: 03/03/19 15:56 A & O x 3 a little anxious not in acute distress Vital Signs Temperature 98.2 F 03/03/19 10:06 Pulse Rate 78 03/03/19 10:06 Respiratory Rate 18 03/03/19 10:06 Blood Pressure 144/67 03/03/19 10:06 O2 Sat by Pulse Oximetry (%) Assessment: 03/03/19 15:56 for discharge, per order medically stable Plan: for d/c Aftercare at [facility]
--- NOTE | 2019-03-03 15:59 | DS ---
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 - Medication Discharge Medications: Ambulatory Orders Escitalopram Oxalate [Lexapro -] 10 mg PO DAILY #30 tablet 02/17/16 Escitalopram Oxalate [Lexapro -] 10 mg PO DAILY #30 tablet 08/03/18 Escitalopram Oxalate [Lexapro -] 10 mg PO DAILY #30 tablet 03/02/19 Esomeprazole Magnesium 40 mg PO DAILY #30 capsule.dr 03/02/19 Pantoprazole Sodium [Protonix -] 40 mg PO DAILY #30 tablet.ec 03/02/19 Albuterol Sulfate Inhaler - [Ventolin HFA Inhaler -] 2 inh IH Q4HPO PRN #1 inh 03/03/19 - AMA Did Patient Leave Against Medical Advice: No
== END 2019-03-03 10:21 | disposition other institution (70) | DRG 897 ==
LOC: YASAS 14:44 → Y6N 18:42
PROVIDERS: ADMIT Surgery; ATTEND Surgery
PROC: HZ2ZZZZ Detoxification Services for Substance Abuse Treatment (ICD-10-PCS; principal; 2019-02-28)
DX: F10.230 Alcohol dependence with withdrawal, uncomplicated (principal); F33.9 Major depressive disorder, recurrent, unspecified; F10.24 Alcohol dependence with alcohol-induced mood disorder; I10 Essential (primary) hypertension; E78.00 Pure hypercholesterolemia, unspecified; K21.9 Gastro-esophageal reflux disease without esophagitis; M12.9 Arthropathy, unspecified; J45.909 Unspecified asthma, uncomplicated; E66.9 Obesity, unspecified; Z68.35 Body mass index [BMI] 35.0-35.9, adult; Z91.5 Personal history of self-harm; Z91.018 Allergy to other foods; Z88.8 Allergy status to other drugs, medicaments and biological substances
CPT/HCPCS: 36415; 80053; 81003; 85027; 86593

== ENCOUNTER 2019-06-25 16:54 | Inpatient (IN) | payer OTHER ==
[2019-06-25 17:21] VITALS: BMI 34.4
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
[2019-06-25] MEDS ORDERED: MENTHOL/PHENOL 1 EACH UD MM PRN (18:48)
[2019-06-25] MEDS ORDERED: BISMUTH SUBSALICYLATE 524 MG/30 ML UD PO PRN (18:48)
[2019-06-25] MEDS ORDERED: LORazepam 1 MG TABLET PO PRN (18:48)
[2019-06-25] MEDS ORDERED: ACETAMINOPHEN 325 MG TABLET (FP) PO PRN ×2 (18:48)
[2019-06-25] MEDS ORDERED: MAGNESIUM HYDROX 2400MG/30ML ORAL SUSPENSION 30 ML CUP PO PRN (18:48)
[2019-06-25] MEDS ORDERED: IBUPROFEN 400 MG TABLET (FP) PO PRN (18:48)
[2019-06-25] MEDS ORDERED: MELATONIN 5 MG TABLETS PO PRN (18:48)
[2019-06-25] MEDS ORDERED: METHOCARBAMOL 500 MG TABLET PO PRN (18:48)
[2019-06-25] MEDS ORDERED: MAGNESIUM CITRATE 300 ML BOTTLE PO PRN (18:48)
[2019-06-25] MEDS ORDERED: MAG HYDROX/AL HYDROX/SIMETH 30 ML UNIT-DOSE CUP PO PRN (18:48)
[2019-06-25] MEDS ORDERED: ALBUTEROL SO4 8 GM HFA INHALER IH PRN (18:55)
[2019-06-25] MEDS: THIAMINE HCL 100 MG TABLET (FP) PO SCH (22:52)
[2019-06-25] MEDS: LORazepam 2 MG TABLET PO SCH (22:53)
[2019-06-26] MEDS: LORazepam 2 MG TABLET PO SCH ×4 (06:20→22:58)
--- NOTE | 2019-06-26 09:32 | EKG ---
Test Reason : Blood Pressure : / mmHG Vent. Rate : 069 BPM Atrial Rate : 069 BPM P-R Int : 162 ms QRS Dur : 086 ms QT Int : 412 ms P-R-T Axes : 066 030 030 degrees QTc Int : 441 ms NORMAL SINUS RHYTHM SEPTAL INFARCT (CITED ON OR BEFORE 02-AUG-2018) ABNORMAL ECG WHEN COMPARED WITH ECG OF 02-AUG-2018 23:19, NO SIGNIFICANT CHANGE WAS FOUND Confirmed by Emil Noel MD ([id number]) on 06/26/2019 9:31:49 AM Referred By: Confirmed By:Emil Noel MD
[2019-06-26] MEDS: PANTOPRAZOLE 40 MG TABLET (FP) PO SCH (10:53)
[2019-06-26] MEDS: PRENATAL VITAMINS W/ FOLIC ACID TABLET (FP) PO SCH (10:53)
--- NOTE | 2019-06-26 12:12 | PN ---
S CIWA - CIWA Score Nausea/Vomitin-No Nausea/No Vomiting Muscle Tremors: 3 Anxiety: 3 Agitation: 3 Paroxysmal Sweats: 3 Orientation: 0-Oriented Tacttile Disturbances: 0-None Auditory Disturbances: 0-None Visual Disturbances: 0-None Headache: 0-None Present CIWA-Ar Total Score: 12 BHS Progress Note (SOAP) Subjective: sweats shakes interrupted sleep body aches tired sleepy Objective: 06/26/19 12:12 Vital Signs Temperature 97.7 F 06/26/19 09:29 Pulse Rate 88 06/26/19 09:29 Respiratory Rate 20 06/26/19 09:29 Blood Pressure 129/86 06/26/19 09:29 O2 Sat by Pulse Oximetry (%) pending labs aaox3 lying in bed no acute distress Assessment: 06/26/19 12:13 withdrawal sx Plan: continue detox increase fluids pending labs
--- NOTE | 2019-06-26 15:06 | CONSULT ---
[facility] Psychiatric Consult - Data Date of interview: 06/26/19 Psychiatric History: Patient could not be seen today because she complained of feeling too tired and needed to rest
[2019-06-26] MEDS: THIAMINE HCL 100 MG TABLET (FP) PO SCH (22:58)
[2019-06-27] MEDS: LORazepam 1 MG TABLET PO SCH ×4 (05:57→22:53)
[2019-06-27] MEDS: PRENATAL VITAMINS W/ FOLIC ACID TABLET (FP) PO SCH (10:37)
[2019-06-27] MEDS: PANTOPRAZOLE 40 MG TABLET (FP) PO SCH (10:37)
--- NOTE | 2019-06-27 13:26 | PN ---
[facility] CIWA - CIWA Score Nausea/Vomitin-No Nausea/No Vomiting Muscle Tremors: 2 Anxiety: 2 Agitation: 2 Paroxysmal Sweats: No Perspiration Orientation: 0-Oriented Tacttile Disturbances: 0-None Auditory Disturbances: 0-None Visual Disturbances: 0-None Headache: 0-None Present CIWA-Ar Total Score: 6 BHS Progress Note (SOAP) Subjective: sweats little anxiety Objective: 06/27/19 13:24 Vital Signs Temperature 98.3 F 06/27/19 09:37 Pulse Rate 99 H 06/27/19 09:37 Respiratory Rate 18 06/27/19 09:37 Blood Pressure 157/77 06/27/19 09:37 O2 Sat by Pulse Oximetry (%) pt had labs drawn on her last visit in february. results WNL no need for blood drawn this visit. Assessment: 06/27/19 13:25 mild withdrawals Plan: continue detox increase fluids
[2019-06-27 15:04] LABS: PH,URINE 5.5 (5.0-8.0); URINE APPEARANCE CLEAR; URINE BILIRUBIN NEGATIVE (NEGATIVE); URINE COLOR YELLOW; URINE GLUCOSE (UA) NEGATIVE (NEGATIVE); URINE KETONE NEGATIVE (NEGATIVE); URINE LEUK ESTERASE NEGATIVE (NEGATIVE); URINE NITRITE NEGATIVE (NEGATIVE); URINE PROTEIN NEGATIVE (NEGATIVE); URINE UROBILINOGEN 0.2 mg/dL (0.2-1.0)
[2019-06-27] MEDS: THIAMINE HCL 100 MG TABLET (FP) PO SCH (22:53)
[2019-06-28] MEDS ORDERED: LORazepam 0.5 MG TABLET PO PRN
[2019-06-28] MEDS: LORazepam 0.5 MG TABLET PO SCH ×4 (06:49→22:44)
[2019-06-28] MEDS: PANTOPRAZOLE 40 MG TABLET (FP) PO SCH (10:55)
[2019-06-28] MEDS: PRENATAL VITAMINS W/ FOLIC ACID TABLET (FP) PO SCH (10:55)
--- NOTE | 2019-06-28 13:00 | PN ---
[facility] CIWA - CIWA Score Nausea/Vomitin-No Nausea/No Vomiting Muscle Tremors: 1-None Visible, but [place] Anxiety: 1-Mildly Anxious Agitation: 0-Normal Activity Paroxysmal Sweats: 1-Minimal Palms Moist Orientation: 0-Oriented Tacttile Disturbances: 0-None Auditory Disturbances: 0-None Visual Disturbances: 0-None Headache: 0-None Present CIWA-Ar Total Score: 3 BHS Progress Note (SOAP) Subjective: acid reflux Objective: 06/28/19 12:59 Vital Signs Temperature 97.7 F 06/28/19 09:50 Pulse Rate 97 H 06/28/19 09:50 Respiratory Rate 16 06/28/19 09:50 Blood Pressure 135/80 06/28/19 09:50 O2 Sat by Pulse Oximetry (%) aaox3 ambulating no acute distress Assessment: 06/28/19 13:00 mild withdrawal sx Plan: continue detox increase fluids continue with protonix 40mg daily d/c in am
[2019-06-28] MEDS: THIAMINE HCL 100 MG TABLET (FP) PO SCH (22:44)
[2019-06-29] MEDS ORDERED: LORazepam 0.5 MG TABLET PO ONE (05:00)
[2019-06-29 09:27] VITALS: BP 152/71; PULSE 87; TEMP 97.7
--- NOTE | 2019-06-29 09:32 | DS ---
[facility] Detox Discharge Summary Admission Date: 06/25/19 Discharge Date: 06/29/19 - History Present History: Alcohol Dependence - Physical Exam Results Vital Signs: Vital Signs Temperature 97.7 F 06/29/19 09:27 Pulse Rate 87 06/29/19 09:27 Respiratory Rate 18 06/29/19 09:27 Blood Pressure 152/71 06/29/19 09:27 O2 Sat by Pulse Oximetry (%) Pertinent Admission Physical Exam Findings: pt arrived in withdrawals - Treatment Hospital Course: Detox Protocol Followed, Detoxed Safely, Responded well, Discharged Condition Good, Rehab Referral Accepted Patient has Accepted a Rehab Referral to: referred to [facility] rehab - Medication Discharge Medications: Ambulatory Orders Escitalopram Oxalate [Lexapro -] 10 mg PO DAILY #30 tablet 03/02/19 Esomeprazole Magnesium 40 mg PO DAILY #30 capsule. 03/02/19 Pantoprazole Sodium [Protonix -] 40 mg PO DAILY #30 tablet.ec 03/02/19 Albuterol Sulfate Inhaler - [Ventolin HFA Inhaler -] 2 inh IH Q4HPO PRN #1 inh 03/03/19 - Diagnosis (1) Alcohol dependence with uncomplicated withdrawal Current Visit: Yes Status: Chronic (2) Abnormal finding on EKG Current Visit: Yes Status: Chronic (3) GERD (gastroesophageal reflux disease) Current Visit: Yes Status: Chronic Qualifiers: Esophagitis presence: without esophagitis Qualified Code(s): K21.9 - Gastro -esophageal reflux disease without esophagitis (4) History of asthma Current Visit: Yes Status: Chronic (5) Hypertension Current Visit: Yes Status: Chronic Qualifiers: Hypertension type: essential hypertension Qualified Code(s): I10 - Essential (primary) hypertension (6) Obesity Current Visit: Yes Status: Chronic Qualifiers: Obesity type: due to excess calories (7) Osteoarthritis Current Visit: Yes Status: Chronic Qualifiers: Osteoarthritis location: knee Osteoarthritis type: unspecified Laterality : bilateral Qualified Code(s): M17.0 - Bilateral primary osteoarthritis of knee (8) Depressive disorder Current Visit: No Status: Acute (9) Alcohol-induced mood disorder Current Visit: No Status: Chronic (10) Arthritis Current Visit: No Status: Chronic (11) Asthma Current Visit: No Status: Chronic (12) Depression Current Visit: No Status: Chronic Qualifiers: Depression Type: unspecified Qualified Code(s): F32.9 - Major depressive disorder, single episode, unspecified (13) Major depressive disorder, recurrent Current Visit: No Status: Chronic (14) Seizure Current Visit: No Status: Chronic (15) Schizophrenia Current Visit: No Status: Suspected Qualifiers: Schizophrenia type: unspecified Qualified Code(s): F20.9 - Schizophrenia, unspecified - AMA Did Patient Leave Against Medical Advice: No
[2019-06-29] MEDS: PRENATAL VITAMINS W/ FOLIC ACID TABLET (FP) PO SCH (10:39)
[2019-06-29] MEDS: PANTOPRAZOLE 40 MG TABLET (FP) PO SCH (10:39)
== END 2019-06-29 15:15 | disposition home or self-care (01) | DRG 897 ==
LOC: YASAS 16:54 → Y6N 19:13
PROVIDERS: ADMIT Surgery; ATTEND Surgery
PROC: HZ2ZZZZ Detoxification Services for Substance Abuse Treatment (ICD-10-PCS; principal; 2019-06-25)
DX: F10.230 Alcohol dependence with withdrawal, uncomplicated (principal); I10 Essential (primary) hypertension; K21.9 Gastro-esophageal reflux disease without esophagitis; M17.0 Bilateral primary osteoarthritis of knee; R94.31 Abnormal electrocardiogram [ECG] [EKG]; E66.9 Obesity, unspecified; Z68.34 Body mass index [BMI] 34.0-34.9, adult; Z87.09 Personal history of other diseases of the respiratory system; Z86.59 Personal history of other mental and behavioral disorders
CPT/HCPCS: 81003; 93005; 93010

== ENCOUNTER 2019-09-20 22:59 | Inpatient (IN) | payer OTHER ==
[2019-09-20 23:30] VITALS: BMI 35.3
--- NOTE | 2019-09-20 23:57 | HP ---
CIWA Score Nausea/Vomitin Muscle Tremors: 3 Anxiety: 3 Agitation: 3 Paroxysmal Sweats: No Perspiration Orientation: 3-Disoriented Date>2 days Tacttile Disturbances: 0-None Auditory Disturbances: 1-Very Mild Visual Disturbances: 2-Mild Sensitivity Headache: 5-Severe CIWA-Ar Total Score: 23 - Admission Criteria OASAS Guidelines: Admission for Medically Managed Detox: Requires at least one of the followin. CIWA greater than 12 2. Seizures within the past 24 hours 3. Delirium tremens within the past 24 hours 4. Hallucinations within the past 24 hours 5. Acute intervention needed for co occurring medical disorder 6. Acute intervention needed for co occurring psychiatric disorder 7. Severe withdrawal that cannot be handled at a lower level of care (continued vomiting, continued diarrhea, abnormal vital signs) requiring intravenous medication and/or fluids 8. Patient presents the following: CIWA greater than 12 Admission Criteria Met: Admission criteria met Admitting History and Physical - Past Medical History ...LMP: 11/22/01 - Smoking History Smoking history: Never smoked Have you smoked in the past 12 months: No Aproximately how many cigarettes per day: 0 - Alcohol/Substance Use Hx Alcohol Use: Yes Admission ROS S - HPI Chief Complaint: I NEED TO CHANGE MY LIFE Allergies/Adverse Reactions: Allergies Allergy/AdvReac Type Severity Reaction Status Date / Time chlordiazepoxide HCl Allergy Severe Swelling Verified 09/20/19 23:21 [From Librium] haloperidol [From Haldol] Allergy Severe Verified 09/20/19 23:21 lithium Allergy Severe Swelling Verified 09/20/19 23:21 Beef Containing Products Allergy Mild Vomiting Verified 09/20/19 23:21 divalproex sodium Allergy Mild Rash Verified 09/20/19 23:21 [From Depakote] pork derived (porcine) Allergy Mild Vomiting Verified 09/20/19 23:21 [Pork derived (porcine)] quetiapine fumarate Allergy Mild Rash Verified 09/20/19 23:21 [From Seroquel] risperidone Allergy Unknown Rash Verified 09/20/19 23:21 lactose AdvReac Intermediate Verified 09/20/19 23:21 Exam Limitations: No Limitations - Ebola screening Have you traveled outside of the country in the last 21 days: No (N) Have you had contact with anyone from an Ebola affected area: No Do you have a fever: No - Review of Systems Constitutional: Loss of Appetite, Changes in sleep EENT: reports: No Symptoms Reported Respiratory: reports: No Symptoms reported Cardiac: reports: No Symptoms Reported GI: reports: Nausea, Poor Appetite, Indigestion : reports: No Symptoms Reported Musculoskeletal: reports: Back Pain Integumentary: reports: No Symptoms Reported Neuro: reports: No Symptoms reported Endocrine: reports: No Symptoms Reported Hematology: reports: No Symptoms Reported Psychiatric: reports: Anxious Patient History - Patient Medical History Hx Anemia: No Hx Asthma: Yes (Pt is on Albuterol IH prn) Hx Chronic Obstructive Pulmonary Disease (COPD): No Hx Cancer: No Hx Cardiac Disorders: No Hx Congestive Heart Failure: No Hx Hypertension: Yes (BP:145/88) Hx Hypercholesterolemia: Yes (Not on medication) Hx Pacemaker: No HX Cerebrovascular Accident: No Hx Seizures: No Hx Dementia: No Hx Diabetes: No Hx Gastrointestinal Disorders: No Hx Liver Disease: No Hx Genitourinary Disorders: No Hx Sexually Transmitted Disorders: No Hx Renal Disease (ESRD): No Hx Thyroid Disease: No Hx Human Immunodeficiency Virus (HIV): No (NEGATIVE 2016) Hx Hepatitis C: No Hx Depression: Yes (LEXAPRO) Hx Suicide Attempt: Yes (10 Y AGO) Hx Bipolar Disorder: No Hx Schizophrenia: No Other Medical History: LAST HOSP 3 Y AGO FOR MAJOR DEPRESSION - Patient Surgical History Past Surgical History: Yes Hx Neurologic Surgery: No Hx Cataract Extraction: No Hx Cardiac Surgery: No Hx Lung Surgery: No Hx Breast Surgery: No Hx Breast Biopsy: No Hx Abdominal Surgery: No Hx Appendectomy: No Hx Cholecystectomy: No Hx Genitourinary Surgery: No Hx Section: Yes (1981, 1982) Hx Orthopedic Surgery: No Hx Hysterectomy: No Other Surgical History: incision and drainage, abscess, right armpit Anesthesia Reaction: No - PPD History Date: 08/04/18 Results: 0 mm - Reproductive History Last Menstrual Period: 11/22/01 - Smoking Cessation Smoking history: Never smoked Have you smoked in the past 12 months: No Aproximately how many cigarettes per day: 0 Cigars Per Day: 0 Hx Chewing Tobacco Use: No - Substances abused Alcohol Substance route: Oral Frequency: Daily Amount used: 3 bottles of wine,1 bottle of Smirnoff. Age of first use: 17 Date of last use: 09/20/19 Admission Physical Exam BHS - Vital Signs Vital Signs: Vital Signs - 24 hr 09/20/19 23:20 Temperature 97.3 F L Pulse Rate 90 Respiratory 16 Rate Blood Pressure 134/84 - Physical General Appearance: Yes: Alcohol on Breath, Irritable, Anxious HEENTM: Yes: EOMI, Other Respiratory: Yes: Within Normal Limits, Lungs Clear, Normal Breath Sounds, No Respiratory Distress, No Accessory Muscle Use Neck: Yes: No masses,lesions,Nodules Breast: Yes: Breast Exam Deferred Cardiology: Yes: Within Normal Limits, Regular Rhythm, Regular Rate, S1, S2 Abdominal: Yes: Normal Bowel Sounds, Non Tender Back: Yes: Within Normal Limits, Normal Inspection Musculoskeletal: Yes: full range of Motion, Gait Steady Extremities: Yes: Normal Capillary Refill, Normal Inspection, Normal Range of Motion 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: 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: 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, Alert, Motor Strength 5/5, Normal Response Integumentary: Yes: Within Normal Limits - Diagnostic (1) Depressive disorder Current Visit: Yes Status: Acute (2) Alcohol dependence with uncomplicated withdrawal Current Visit: Yes Status: Chronic (3) Arthritis Current Visit: Yes Status: Chronic (4) Asthma Current Visit: Yes Status: Chronic (5) GERD (gastroesophageal reflux disease) Current Visit: Yes Status: Chronic Qualifiers: Esophagitis presence: without esophagitis Qualified Code(s): K21.9 - Gastro -esophageal reflux disease without esophagitis (6) Major depressive disorder, recurrent Current Visit: Yes Status: Chronic (7) Obesity Current Visit: Yes Status: Chronic Qualifiers: Obesity type: due to excess calories (8) Osteoarthritis Current Visit: No Status: Chronic Qualifiers: Osteoarthritis location: knee Osteoarthritis type: unspecified Laterality : bilateral Qualified Code(s): M17.0 - Bilateral primary osteoarthritis of knee (9) Seizure Current Visit: No Status: Resolved Breathalyzer - Breathalyzer Breathalyzer: 0.061 POC Urine test - Test device test lot number: [id number] Expiration date: 07/28/20 - Control test control: Yes Urine Drug Screen - Test Device Lot number: [id number] Expiration date: 05/27/21 - Control Is test valid?: Yes - Results Drug screen NEGATIVE: Yes Urine drug screen results: BZO-Benzodiazepines Inpatient Rehab Admission - Rehab Decision to Admit Inpatient rehab admission?: No
[2019-09-20] MEDS ORDERED: IBUPROFEN 400 MG TABLET (FP) PO PRN (23:59)
[2019-09-20] MEDS ORDERED: MENTHOL/PHENOL 1 EACH UD MM PRN (23:59)
[2019-09-20] MEDS ORDERED: MAGNESIUM CITRATE 300 ML BOTTLE PO PRN (23:59)
[2019-09-20] MEDS ORDERED: MELATONIN 5 MG TABLETS PO PRN (23:59)
[2019-09-20] MEDS ORDERED: diazePAM 5 MG TABLET PO PRN (23:59)
[2019-09-20] MEDS ORDERED: MAGNESIUM HYDROX 2400MG/30ML ORAL SUSPENSION 30 ML CUP PO PRN (23:59)
[2019-09-20] MEDS ORDERED: BISMUTH SUBSALICYLATE 524 MG/30 ML UD PO PRN (23:59)
[2019-09-20] MEDS ORDERED: ACETAMINOPHEN 325 MG TABLET (FP) PO PRN (23:59)
[2019-09-20] MEDS ORDERED: hydrOXYzine PAMOATE 25 MG CAPSULE (FP) PO PRN (23:59)
[2019-09-21] MEDS ORDERED: ALBUTEROL SO4 8 GM HFA INHALER IH PRN (00:05)
[2019-09-21] MEDS: diazePAM 5 MG TABLET PO SCH ×3 (06:33→22:59)
[2019-09-21] MEDS: ESCITALOPRAM OXALATE 10 MG TABLET (FP) PO SCH (10:23)
[2019-09-21] MEDS: PANTOPRAZOLE 40 MG TABLET (FP) PO SCH (10:23)
[2019-09-21] MEDS: PRENATAL VITAMINS W/ FOLIC ACID TABLET (FP) PO SCH (10:23)
--- NOTE | 2019-09-21 14:30 | PN ---
S CIWA - CIWA Score Nausea/Vomitin (Stomach Cramping.) Muscle Tremors: 2 Anxiety: 3 Agitation: 3 Paroxysmal Sweats: No Perspiration Orientation: 2-Disoriented Date<2 days Tacttile Disturbances: 0-None Auditory Disturbances: 1-Very Mild Visual Disturbances: 2-Mild Sensitivity Headache: 0-None Present CIWA-Ar Total Score: 15 BHS Progress Note (SOAP) Subjective: Tremors, Body Aches, Anxious, Stomach Cramping. Objective: PATIENT A & O X 2 (UNCERTAIN ABOUT CURRENT DAY/ DATE). PATIENT OBSERVED AMBULATING ON DETOX UNIT UNASSISTED. IN NO ACUTE DISTRESS. 09/21/19 14:30 Vital Signs Temperature 97.1 F L 09/21/19 09:05 Pulse Rate 109 H 09/21/19 09:05 Respiratory Rate 20 09/21/19 09:05 Blood Pressure 132/74 09/21/19 09:05 O2 Sat by Pulse Oximetry (%) RESULTS OF DETOX ADMISSION LABS PENDING. 09/21/19 14:31 Assessment: 09/21/19 14:32 WITHDRAWAL SYMPTOMS. Plan: CONTINUE DETOX. PRN ROBAXIN PO FOR BODY ACHES / MUSCLE SPASMS.
[2019-09-21] MEDS ORDERED: diazePAM 5 MG TABLET PO SCH (22:00)
[2019-09-21] MEDS: THIAMINE HCL 100 MG TABLET (FP) PO SCH (23:00)
[2019-09-22] MEDS: diazePAM 5 MG TABLET PO SCH ×2 (05:39→18:19)
[2019-09-22] MEDS: ESCITALOPRAM OXALATE 10 MG TABLET (FP) PO SCH (10:05)
[2019-09-22] MEDS: PRENATAL VITAMINS W/ FOLIC ACID TABLET (FP) PO SCH (10:05)
[2019-09-22] MEDS: diazePAM 5 MG TABLET PO PRN (10:05)
[2019-09-22] MEDS: PANTOPRAZOLE 40 MG TABLET (FP) PO SCH (10:05)
[2019-09-22] MEDS: ACETAMINOPHEN 500 MG TABLET (FP) PO PRN (12:33)
--- NOTE | 2019-09-22 16:17 | PN ---
S CIWA - CIWA Score Nausea/Vomitin Muscle Tremors: 2 Anxiety: 3 Agitation: 3 Paroxysmal Sweats: No Perspiration Orientation: 0-Oriented Tacttile Disturbances: 0-None Auditory Disturbances: 0-None Visual Disturbances: 2-Mild Sensitivity Headache: 0-None Present CIWA-Ar Total Score: 12 BHS Progress Note (SOAP) Subjective: Tremors, Anxious, Body Aches, Fatigue. Objective: PATIENT A & O X 3, OBSERVED AMBULATING ON DETOX UNIT UNASSISTED. IN NO ACUTE DISTRESS. 09/22/19 16:18 Vital Signs Temperature 96.4 F L 09/22/19 09:35 Pulse Rate 88 09/22/19 09:35 Respiratory Rate 18 09/22/19 09:35 Blood Pressure 138/84 09/22/19 09:35 O2 Sat by Pulse Oximetry (%) DRESSAGE JUDGE UNABLE TO OBTAIN BLOOD SAMPLE FOR DETOX ADMISSION LABS EARLIER TODAY. WILL ATTEMPT AGAIN TO [place]. 09/22/19 16:18 Assessment: 09/22/19 16:19 WITHDRAWAL SYMPTOMS. Plan: CONTINUE DETOX. DUE TO SEVERITY OF WITHDRAWAL SYMPTOMS, PATIENT GRANTED 1 ADDITIONAL DAY TO REMAIN IN TREATMENT FOR DETOX, SO THAT PATIENT NOW SCHEDULED FOR DISCHARGE ON 09/24/2019.
[2019-09-22] MEDS: THIAMINE HCL 100 MG TABLET (FP) PO SCH (23:54)
[2019-09-23] MEDS ORDERED: diazePAM 5 MG TABLET PO SCH (06:00)
[2019-09-23] MEDS ORDERED: diazePAM 5 MG TABLET PO ONE (06:00)
[2019-09-23] MEDS: diazePAM 5 MG TABLET PO SCH ×2 (06:16→17:29)
--- NOTE | 2019-09-23 09:32 | PN ---
S CIWA - CIWA Score Nausea/Vomitin-No Nausea/No Vomiting Muscle Tremors: 2 Anxiety: 2 Agitation: 2 Paroxysmal Sweats: 1-Minimal Palms Moist Orientation: 0-Oriented Tacttile Disturbances: 0-None Auditory Disturbances: 0-None Visual Disturbances: 0-None Headache: 1-Very Mild CIWA-Ar Total Score: 8 BHS Progress Note (SOAP) Subjective: 59 years old female admitted on 09/20/19 for alcohol withdrawal sx management treated with valium detox regimen tolerate well at this time report hard stool denies nausea ate breakfast denies abdomen pain bowel sound x 4 present begin metamucil encourage MOM x 1 Objective: 09/23/19 09:33 Vital Signs Temperature 97.5 F L 09/23/19 09:04 Pulse Rate 99 H 09/23/19 09:04 Respiratory Rate 18 09/23/19 09:04 Blood Pressure 140/77 09/23/19 09:04 O2 Sat by Pulse Oximetry (%) 09/23/19 09:34 lab pending Assessment: 09/23/19 09:34 alcohol withdrawal sx Plan: continue valium detox regimen
[2019-09-23 10:04] LABS: BASO % 1.4 % (0-2.0); EOS % 2.3 % (0-4.5); HEMOGLOBIN 12.6 GM/dL (10.7-15.3); LYMPH % 39.2 % (8-40); MCHC 33.2 g/dl (32.0-36.0); MEAN CELL VOLUME 93.5 fl (80-96); MEAN PLT VOLUME 10.2 fl (7.5-11.1); MONO % 7.3 % (3.8-10.2); NEUT % 49.8 % (42.8-82.8); RBC 4.06 M/mm3 (3.60-5.2); RDW 14.6 % (11.6-15.6); WHITE BLOOD COUNT 4.9 K/mm3 (4.0-10.0)
[2019-09-23 10:24] LABS: ALBUMIN 3.5 g/dl (3.4-5.0); BILIRUBIN,TOTAL 0.5 mg/dL (0.2-1); BLOOD UREA NITROGEN 13.2 mg/dL (7-18); CALCIUM 8.8 mg/dL (8.5-10.1); CREATININE 0.6 mg/dL (0.55-1.3); POTASSIUM 4.4 mmol/L (3.5-5.1); TOT PROT 7.2 g/dl (6.4-8.2)
[2019-09-23] MEDS: PANTOPRAZOLE 40 MG TABLET (FP) PO SCH (10:39)
[2019-09-23] MEDS: ACETAMINOPHEN 500 MG TABLET (FP) PO PRN ×2 (10:39→22:28)
[2019-09-23] MEDS: PRENATAL VITAMINS W/ FOLIC ACID TABLET (FP) PO SCH (10:39)
[2019-09-23] MEDS: ESCITALOPRAM OXALATE 10 MG TABLET (FP) PO SCH (10:39)
[2019-09-23 13:58] LABS: PLATELET COUNT 203 K/MM3 (134-434)
[2019-09-23] MEDS: PSYLLIUM 5.85 GM PACKET PO SCH (15:29)
[2019-09-23] MEDS: ACETAMINOPHEN 325 MG TABLET (FP) PO PRN (16:29)
[2019-09-23] MEDS: METHOCARBAMOL 500 MG TABLET PO PRN (17:30)
[2019-09-23] MEDS: THIAMINE HCL 100 MG TABLET (FP) PO SCH (22:27)
[2019-09-23] MEDS: diazePAM 5 MG TABLET PO PRN (22:27)
[2019-09-23] MEDS: PHENYLEPHRINE HCL/COCOA BUTTER SUPPOSITORY RC PRN (22:29)
[2019-09-24] MEDS ORDERED: diazePAM 5 MG TABLET PO ONE ×2 (06:00)
[2019-09-24] MEDS: ACETAMINOPHEN 325 MG TABLET (FP) PO PRN ×2 (07:17→19:47)
[2019-09-24] MEDS: PANTOPRAZOLE 40 MG TABLET (FP) PO SCH (10:32)
[2019-09-24] MEDS: PRENATAL VITAMINS W/ FOLIC ACID TABLET (FP) PO SCH (10:32)
[2019-09-24] MEDS: ESCITALOPRAM OXALATE 10 MG TABLET (FP) PO SCH (10:32)
[2019-09-24] MEDS: METHOCARBAMOL 500 MG TABLET PO PRN (10:32)
[2019-09-24] MEDS: BENZOCAINE 28 GM HEMORRHOIDAL OINTMENT PR PRN (12:00)
[2019-09-24] MEDS: PSYLLIUM 5.85 GM PACKET PO SCH (14:41)
[2019-09-24] MEDS: THIAMINE HCL 100 MG TABLET (FP) PO SCH (21:51)
[2019-09-25] MEDS: ESCITALOPRAM OXALATE 10 MG TABLET (FP) PO SCH (09:47)
[2019-09-25] MEDS: PANTOPRAZOLE 40 MG TABLET (FP) PO SCH (09:47)
[2019-09-25] MEDS: COLLOIDAL OATMEAL 1 BAR EACH TP PRN (09:47)
[2019-09-25] MEDS: PRENATAL VITAMINS W/ FOLIC ACID TABLET (FP) PO SCH (09:48)
[2019-09-25] MEDS: ACETAMINOPHEN 325 MG TABLET (FP) PO PRN (09:49)
[2019-09-25] MEDS: PSYLLIUM 5.85 GM PACKET PO SCH (13:30)
[2019-09-25] MEDS: MAG HYDROX/AL HYDROX/SIMETH 30 ML UNIT-DOSE CUP PO PRN (13:30)
[2019-09-25] MEDS: THIAMINE HCL 100 MG TABLET (FP) PO SCH (22:03)
[2019-09-26] MEDS: PRENATAL VITAMINS W/ FOLIC ACID TABLET (FP) PO SCH (09:56)
[2019-09-26] MEDS: ESCITALOPRAM OXALATE 10 MG TABLET (FP) PO SCH (09:56)
[2019-09-26] MEDS: PANTOPRAZOLE 40 MG TABLET (FP) PO SCH (09:56)
[2019-09-26] MEDS: ACETAMINOPHEN 325 MG TABLET (FP) PO PRN (09:57)
[2019-09-26] MEDS: PSYLLIUM 5.85 GM PACKET PO SCH (13:15)
[2019-09-26] MEDS: THIAMINE HCL 100 MG TABLET (FP) PO SCH (23:03)
[2019-09-27] MEDS ORDERED: PT OWN MED DRAWER 7, Y5N ONE ×2 (09:58→09:59)
[2019-09-27] MEDS: COLLOIDAL OATMEAL 1 BAR EACH TP PRN (09:59)
[2019-09-27] MEDS: PANTOPRAZOLE 40 MG TABLET (FP) PO SCH (10:00)
[2019-09-27] MEDS: ACETAMINOPHEN 325 MG TABLET (FP) PO PRN (10:00)
[2019-09-27] MEDS: ESCITALOPRAM OXALATE 10 MG TABLET (FP) PO SCH (10:00)
[2019-09-27] MEDS: PHENYLEPHRINE HCL/COCOA BUTTER SUPPOSITORY RC PRN (10:00)
[2019-09-27] MEDS: PRENATAL VITAMINS W/ FOLIC ACID TABLET (FP) PO SCH (10:04)
[2019-09-27] MEDS: PSYLLIUM 5.85 GM PACKET PO SCH (14:13)
[2019-09-27] MEDS: THIAMINE HCL 100 MG TABLET (FP) PO SCH (21:55)
[2019-09-28] MEDS: ESCITALOPRAM OXALATE 10 MG TABLET (FP) PO SCH (09:53)
[2019-09-28] MEDS: PANTOPRAZOLE 40 MG TABLET (FP) PO SCH (09:53)
[2019-09-28] MEDS: PRENATAL VITAMINS W/ FOLIC ACID TABLET (FP) PO SCH (09:54)
[2019-09-28] MEDS: PSYLLIUM 5.85 GM PACKET PO SCH (14:23)
[2019-09-28] MEDS: THIAMINE HCL 100 MG TABLET (FP) PO SCH (22:43)
[2019-09-29] MEDS: PRENATAL VITAMINS W/ FOLIC ACID TABLET (FP) PO SCH (09:52)
[2019-09-29] MEDS: PANTOPRAZOLE 40 MG TABLET (FP) PO SCH (09:52)
[2019-09-29] MEDS: ESCITALOPRAM OXALATE 10 MG TABLET (FP) PO SCH (09:52)
[2019-09-29] MEDS: PSYLLIUM 5.85 GM PACKET PO SCH (13:15)
[2019-09-29] MEDS: THIAMINE HCL 100 MG TABLET (FP) PO SCH (21:49)
[2019-09-30] MEDS: PANTOPRAZOLE 40 MG TABLET (FP) PO SCH (09:37)
[2019-09-30] MEDS: ESCITALOPRAM OXALATE 10 MG TABLET (FP) PO SCH (09:37)
[2019-09-30] MEDS: ACETAMINOPHEN 325 MG TABLET (FP) PO PRN (09:38)
[2019-09-30] MEDS: PRENATAL VITAMINS W/ FOLIC ACID TABLET (FP) PO SCH (09:42)
[2019-09-30] MEDS: PSYLLIUM 5.85 GM PACKET PO SCH (13:44)
[2019-09-30] MEDS: MAG HYDROX/AL HYDROX/SIMETH 30 ML UNIT-DOSE CUP PO PRN (17:39)
[2019-09-30] MEDS: COLLOIDAL OATMEAL 1 BAR EACH TP PRN (17:41)
[2019-09-30] MEDS: THIAMINE HCL 100 MG TABLET (FP) PO SCH (21:53)
[2019-10-01] MEDS: PANTOPRAZOLE 40 MG TABLET (FP) PO SCH (10:11)
[2019-10-01] MEDS: PRENATAL VITAMINS W/ FOLIC ACID TABLET (FP) PO SCH (10:11)
[2019-10-01] MEDS: ESCITALOPRAM OXALATE 10 MG TABLET (FP) PO SCH (10:11)
[2019-10-01] MEDS: PHENYLEPHRINE HCL/COCOA BUTTER SUPPOSITORY RC PRN (10:11)
[2019-10-01] MEDS: PSYLLIUM 5.85 GM PACKET PO SCH (14:05)
[2019-10-01] MEDS: MAG HYDROX/AL HYDROX/SIMETH 30 ML UNIT-DOSE CUP PO PRN (17:07)
[2019-10-01] MEDS: THIAMINE HCL 100 MG TABLET (FP) PO SCH (22:04)
[2019-10-02] MEDS: COLLOIDAL OATMEAL 1 BAR EACH TP PRN (04:54)
[2019-10-02] MEDS: PANTOPRAZOLE 40 MG TABLET (FP) PO SCH (09:34)
[2019-10-02] MEDS: PRENATAL VITAMINS W/ FOLIC ACID TABLET (FP) PO SCH (09:34)
[2019-10-02] MEDS: ESCITALOPRAM OXALATE 10 MG TABLET (FP) PO SCH (09:34)
[2019-10-02] MEDS: MAG HYDROX/AL HYDROX/SIMETH 30 ML UNIT-DOSE CUP PO PRN (14:51)
[2019-10-02] MEDS: PSYLLIUM 5.85 GM PACKET PO SCH (14:52)
[2019-10-02] MEDS: THIAMINE HCL 100 MG TABLET (FP) PO SCH (22:07)
[2019-10-03] MEDS: PRENATAL VITAMINS W/ FOLIC ACID TABLET (FP) PO SCH (09:48)
[2019-10-03] MEDS: PANTOPRAZOLE 40 MG TABLET (FP) PO SCH (09:48)
[2019-10-03] MEDS: ESCITALOPRAM OXALATE 10 MG TABLET (FP) PO SCH (09:49)
[2019-10-03] MEDS: PSYLLIUM 5.85 GM PACKET PO SCH (13:57)
[2019-10-03] MEDS: THIAMINE HCL 100 MG TABLET (FP) PO SCH (21:35)
[2019-10-04] MEDS ORDERED: PT OWN MED DRAWER 7, Y5N ONE (08:56)
[2019-10-04] MEDS: ESCITALOPRAM OXALATE 10 MG TABLET (FP) PO SCH (10:03)
[2019-10-04] MEDS: PANTOPRAZOLE 40 MG TABLET (FP) PO SCH (10:03)
[2019-10-04] MEDS: PRENATAL VITAMINS W/ FOLIC ACID TABLET (FP) PO SCH (10:04)
[2019-10-04] MEDS: PSYLLIUM 5.85 GM PACKET PO SCH (13:38)
[2019-10-04] MEDS: COLLOIDAL OATMEAL 1 BAR EACH TP PRN (16:38)
[2019-10-04] MEDS: THIAMINE HCL 100 MG TABLET (FP) PO SCH (23:01)
[2019-10-05] MEDS: ESCITALOPRAM OXALATE 10 MG TABLET (FP) PO SCH (09:04)
[2019-10-05] MEDS: PRENATAL VITAMINS W/ FOLIC ACID TABLET (FP) PO SCH (09:05)
[2019-10-05] MEDS: PANTOPRAZOLE 40 MG TABLET (FP) PO SCH (09:05)
[2019-10-05] MEDS: MAG HYDROX/AL HYDROX/SIMETH 30 ML UNIT-DOSE CUP PO PRN (11:50)
[2019-10-05] MEDS: PSYLLIUM 5.85 GM PACKET PO SCH (13:39)
[2019-10-05] MEDS: THIAMINE HCL 100 MG TABLET (FP) PO SCH (21:57)
[2019-10-05] MEDS ORDERED: PT OWN MED DRAWER 7, Y5N ONE (22:04)
[2019-10-06] MEDS ORDERED: PT OWN MED DRAWER 7, Y5N ONE (09:12)
[2019-10-06] MEDS: PANTOPRAZOLE 40 MG TABLET (FP) PO SCH (10:06)
[2019-10-06] MEDS: PHENYLEPHRINE HCL/COCOA BUTTER SUPPOSITORY RC PRN (10:06)
[2019-10-06] MEDS: ESCITALOPRAM OXALATE 10 MG TABLET (FP) PO SCH (10:06)
[2019-10-06] MEDS: PRENATAL VITAMINS W/ FOLIC ACID TABLET (FP) PO SCH (10:06)
[2019-10-06] MEDS: PSYLLIUM 5.85 GM PACKET PO SCH (13:55)
[2019-10-06] MEDS: THIAMINE HCL 100 MG TABLET (FP) PO SCH (21:35)
[2019-10-07] MEDS: PHENYLEPHRINE HCL/COCOA BUTTER SUPPOSITORY RC PRN (09:40)
[2019-10-07] MEDS: PANTOPRAZOLE 40 MG TABLET (FP) PO SCH (09:40)
[2019-10-07] MEDS: ESCITALOPRAM OXALATE 10 MG TABLET (FP) PO SCH (09:40)
[2019-10-07] MEDS: PRENATAL VITAMINS W/ FOLIC ACID TABLET (FP) PO SCH (09:40)
[2019-10-07] MEDS: MAG HYDROX/AL HYDROX/SIMETH 30 ML UNIT-DOSE CUP PO PRN (09:42)
[2019-10-07] MEDS: PSYLLIUM 5.85 GM PACKET PO SCH (14:13)
[2019-10-07] MEDS ORDERED: PT OWN MED DRAWER 7, Y5N ONE ×2 (15:30→15:33)
[2019-10-07] MEDS: BENZOCAINE 28 GM HEMORRHOIDAL OINTMENT PR PRN (15:32)
[2019-10-07] MEDS: THIAMINE HCL 100 MG TABLET (FP) PO SCH (21:56)
[2019-10-08] MEDS: PANTOPRAZOLE 40 MG TABLET (FP) PO SCH (10:00)
[2019-10-08] MEDS: ESCITALOPRAM OXALATE 10 MG TABLET (FP) PO SCH (10:00)
[2019-10-08] MEDS: PRENATAL VITAMINS W/ FOLIC ACID TABLET (FP) PO SCH (10:01)
[2019-10-08] MEDS: PSYLLIUM 5.85 GM PACKET PO SCH (14:18)
[2019-10-08] MEDS ORDERED: PT OWN MED DRAWER 7, Y5N ONE (17:00)
[2019-10-08] MEDS: BENZOCAINE 28 GM HEMORRHOIDAL OINTMENT PR PRN (17:01)
[2019-10-08] MEDS: MAG HYDROX/AL HYDROX/SIMETH 30 ML UNIT-DOSE CUP PO PRN (17:01)
[2019-10-08] MEDS: THIAMINE HCL 100 MG TABLET (FP) PO SCH (21:48)
[2019-10-09] MEDS: PANTOPRAZOLE 40 MG TABLET (FP) PO SCH (10:05)
[2019-10-09] MEDS: PHENYLEPHRINE HCL/COCOA BUTTER SUPPOSITORY RC PRN (10:06)
[2019-10-09] MEDS: BENZOCAINE 28 GM HEMORRHOIDAL OINTMENT PR PRN (10:06)
[2019-10-09] MEDS: ESCITALOPRAM OXALATE 10 MG TABLET (FP) PO SCH (10:06)
[2019-10-09] MEDS: PRENATAL VITAMINS W/ FOLIC ACID TABLET (FP) PO SCH (10:06)
[2019-10-09] MEDS: PSYLLIUM 5.85 GM PACKET PO SCH (14:10)
[2019-10-09] MEDS ORDERED: PT OWN MED DRAWER 7, Y5N ONE (19:35)
[2019-10-09] MEDS: THIAMINE HCL 100 MG TABLET (FP) PO SCH (21:57)
[2019-10-10] MEDS: PANTOPRAZOLE 40 MG TABLET (FP) PO SCH (09:27)
[2019-10-10] MEDS: ESCITALOPRAM OXALATE 10 MG TABLET (FP) PO SCH (09:27)
[2019-10-10] MEDS: PRENATAL VITAMINS W/ FOLIC ACID TABLET (FP) PO SCH (09:27)
[2019-10-10] MEDS ORDERED: PT OWN MED DRAWER 7, Y5N ONE (12:29)
[2019-10-10] MEDS: PSYLLIUM 5.85 GM PACKET PO SCH (13:50)
[2019-10-10] MEDS: THIAMINE HCL 100 MG TABLET (FP) PO SCH (21:34)
[2019-10-11] MEDS: COLLOIDAL OATMEAL 1 BAR EACH TP PRN (06:25)
[2019-10-11] MEDS: ESCITALOPRAM OXALATE 10 MG TABLET (FP) PO SCH (09:39)
[2019-10-11] MEDS: PANTOPRAZOLE 40 MG TABLET (FP) PO SCH (09:39)
[2019-10-11] MEDS: PRENATAL VITAMINS W/ FOLIC ACID TABLET (FP) PO SCH (09:40)
[2019-10-11] MEDS: PSYLLIUM 5.85 GM PACKET PO SCH (13:08)
[2019-10-11] MEDS: THIAMINE HCL 100 MG TABLET (FP) PO SCH (23:15)
[2019-10-12] MEDS: PANTOPRAZOLE 40 MG TABLET (FP) PO SCH (10:04)
[2019-10-12] MEDS: PHENYLEPHRINE HCL/COCOA BUTTER SUPPOSITORY RC PRN (10:04)
[2019-10-12] MEDS: ESCITALOPRAM OXALATE 10 MG TABLET (FP) PO SCH (10:04)
[2019-10-12] MEDS: PRENATAL VITAMINS W/ FOLIC ACID TABLET (FP) PO SCH (10:04)
[2019-10-12] MEDS: BENZOCAINE 28 GM HEMORRHOIDAL OINTMENT PR PRN (10:05)
[2019-10-12] MEDS: ACETAMINOPHEN 325 MG TABLET (FP) PO PRN (14:01)
[2019-10-12] MEDS: PSYLLIUM 5.85 GM PACKET PO SCH (14:01)
[2019-10-12] MEDS: THIAMINE HCL 100 MG TABLET (FP) PO SCH (21:50)
[2019-10-13] MEDS: PRENATAL VITAMINS W/ FOLIC ACID TABLET (FP) PO SCH (10:33)
[2019-10-13] MEDS: ESCITALOPRAM OXALATE 10 MG TABLET (FP) PO SCH (10:33)
[2019-10-13] MEDS: PANTOPRAZOLE 40 MG TABLET (FP) PO SCH (10:33)
[2019-10-13] MEDS: PSYLLIUM 5.85 GM PACKET PO SCH (14:12)
[2019-10-13] MEDS: ACETAMINOPHEN 325 MG TABLET (FP) PO PRN (14:13)
[2019-10-13] MEDS: THIAMINE HCL 100 MG TABLET (FP) PO SCH (22:01)
[2019-10-14] MEDS: PRENATAL VITAMINS W/ FOLIC ACID TABLET (FP) PO SCH (09:38)
[2019-10-14] MEDS: ESCITALOPRAM OXALATE 10 MG TABLET (FP) PO SCH (09:38)
[2019-10-14] MEDS: PANTOPRAZOLE 40 MG TABLET (FP) PO SCH (09:38)
[2019-10-14] MEDS: COLLOIDAL OATMEAL 1 BAR EACH TP PRN (12:27)
[2019-10-14] MEDS: PSYLLIUM 5.85 GM PACKET PO SCH (13:55)
[2019-10-14] MEDS: ACETAMINOPHEN 325 MG TABLET (FP) PO PRN (13:56)
[2019-10-14] MEDS: MAG HYDROX/AL HYDROX/SIMETH 30 ML UNIT-DOSE CUP PO PRN (15:01)
[2019-10-14] MEDS: THIAMINE HCL 100 MG TABLET (FP) PO SCH (21:51)
[2019-10-15] MEDS ORDERED: PT OWN MED DRAWER 7, Y5N ONE (09:45)
[2019-10-15] MEDS: ACETAMINOPHEN 500 MG TABLET (FP) PO PRN (09:46)
[2019-10-15] MEDS: PRENATAL VITAMINS W/ FOLIC ACID TABLET (FP) PO SCH (09:46)
[2019-10-15] MEDS: PANTOPRAZOLE 40 MG TABLET (FP) PO SCH (09:46)
[2019-10-15] MEDS: ESCITALOPRAM OXALATE 10 MG TABLET (FP) PO SCH (09:46)
[2019-10-15] MEDS: BENZOCAINE 28 GM HEMORRHOIDAL OINTMENT PR PRN (09:48)
[2019-10-15] MEDS: PSYLLIUM 5.85 GM PACKET PO SCH (14:05)
[2019-10-15] MEDS: THIAMINE HCL 100 MG TABLET (FP) PO SCH (23:27)
[2019-10-16] MEDS: ESCITALOPRAM OXALATE 10 MG TABLET (FP) PO SCH (09:36)
[2019-10-16] MEDS: PRENATAL VITAMINS W/ FOLIC ACID TABLET (FP) PO SCH (09:36)
[2019-10-16] MEDS: PANTOPRAZOLE 40 MG TABLET (FP) PO SCH (09:36)
[2019-10-16] MEDS: PSYLLIUM 5.85 GM PACKET PO SCH (13:01)
[2019-10-16] MEDS: THIAMINE HCL 100 MG TABLET (FP) PO SCH (21:58)
[2019-10-16] MEDS ORDERED: TUBERCULIN PPD 5 TU/0.1ML VIAL ID ONE (22:53)
[2019-10-17] MEDS: MAG HYDROX/AL HYDROX/SIMETH 30 ML UNIT-DOSE CUP PO PRN (08:41)
[2019-10-17] MEDS: PANTOPRAZOLE 40 MG TABLET (FP) PO SCH (10:12)
[2019-10-17] MEDS: ESCITALOPRAM OXALATE 10 MG TABLET (FP) PO SCH (10:12)
[2019-10-17] MEDS: PRENATAL VITAMINS W/ FOLIC ACID TABLET (FP) PO SCH (10:13)
[2019-10-17] MEDS: PSYLLIUM 5.85 GM PACKET PO SCH (14:07)
[2019-10-17] MEDS: COLLOIDAL OATMEAL 1 BAR EACH TP PRN (18:12)
[2019-10-17] MEDS: THIAMINE HCL 100 MG TABLET (FP) PO SCH (22:54)
[2019-10-18] MEDS: PANTOPRAZOLE 40 MG TABLET (FP) PO SCH (09:53)
[2019-10-18] MEDS: ESCITALOPRAM OXALATE 10 MG TABLET (FP) PO SCH (09:53)
[2019-10-18] MEDS: PRENATAL VITAMINS W/ FOLIC ACID TABLET (FP) PO SCH (09:54)
--- NOTE | 2019-10-18 10:07 | PN ---
[facility] Progress Note Note: Pt is a 59 y/o female who detoxed on and was transferred to rehab for aftercare on 09/21/19 and scheduled for discharge on 10/19/19. pt has been referred to [facility] CD program for follow up care. Pt reports she has a primary care doctor, Dr. Garcia at [facility], for medical management. Vital Signs - 24 hr 10/18/19 10/18/19 10/18/19 00:30 03:30 06:57 Temperature 97.8 F Pulse Rate 86 Respiratory 18 18 16 Rate Blood Pressure 135/80 Alert o x 3 nad oob ambulating with steady gait cardiac:s1 s2,rrr lungs:cta,srini. abdomen:soft,+bs,nt,nd extremities/skin:no edema,Full ROM/weight bearing,skin intact. A/P Pt is Stable for discharge D/C tomorrow as scheduled if pt stable. follow up with aftercare recommendations.
--- NOTE | 2019-10-18 13:40 | DS ---
[facility] Rehab Discharge Summary - [facility] Rehab Discharge Summary Admission Date: 09/21/19 Discharge Date: 10/19/19 - History Present History: Alcohol dependence Additional Comments: Pt is a 59 y/o female who detoxed on and was transferred to rehab for aftercare on 09/21/19 and scheduled for discharge on 10/19/19. Pt has been referred to [facility] program for follow up care. Pt reports she has a primary care doctor, Dr. Garcia at [facility], for medical management. Pertinent Past History: Asthma GERD Osteoarthritis Seizure hx(no med) HTN(no med) Obesity Depression - Discharge Physical Exam Vital Signs: Vital Signs Temperature 97.8 F 10/18/19 06:57 Pulse Rate 105 H 10/18/19 10:00 Respiratory Rate 16 10/18/19 06:57 Blood Pressure 126/77 10/18/19 10:00 O2 Sat by Pulse Oximetry (%) Alert o x 3 nad oob ambulating with steady gait cardiac:s1 s2,rrr lungs:cta,srini. abdomen:soft,+bs,nt,nd extremities/skin:no edema,Full ROM/weight bearing,skin intact. Pertinent Admission Physical Exam Findings: Laboratory Tests 09/23/19 09/23/19 09/23/19 07:40 07:40 07:40 WBC 4.9 RBC 4.06 Hgb 12.6 Hct 38.0 MCV 93.5 MCH 31.0 MCHC 33.2 RDW 14.6 Plt Count 203 MPV 10.2 Absolute Neuts (auto) 2.5 Neutrophils % 49.8 D Lymphocytes % 39.2 D Monocytes % 7.3 D Eosinophils % 2.3 D Basophils % 1.4 D Nucleated RBC % 0 Sodium 142 Potassium 4.4 Chloride 106 Carbon Dioxide 28 Anion Gap 8 BUN 13.2 Creatinine 0.6 Est GFR (CKD-EPI)AfAm 114.82 Est GFR (CKD-EPI)NonAf 99.07 Random Glucose 79 Calcium 8.8 Total Bilirubin 0.5 AST 26 ALT 27 Alkaline Phosphatase 67 Total Protein 7.2 Albumin 3.5 RPR Titer Nonreactive - Treatment Discharge Condition: Discharge condition good Hospital Course: Rehabilitated safely and responded well CD aftercare referral accepted. - Medication Discharge Medications: Ambulatory Orders Albuterol Sulfate Inhaler - [Ventolin HFA Inhaler -] 2 inh IH Q4HPO PRN #1 inh 04/06/19 - Medication-Assisted Treatment (MAT) Medication-Assisted Treatment (MAT): No - Discharge Instructions Diet, activity, other medical instructions: Diet:REYNA Activity:oob ad lisa Other medical instructions:follow up with primary care provider Dr. Garcia within 1-2 weeks after discharge. follow up with CD aftercare recommendation as scheduled. - Diagnosis (1) Arthritis Status: Chronic (2) Asthma Status: Chronic (3) GERD (gastroesophageal reflux disease) Status: Chronic Qualifiers: Esophagitis presence: esophagitis presence not specified Qualified Code(s) : K21.9 - Gastro-esophageal reflux disease without esophagitis (4) Obesity Status: Chronic Qualifiers: Obesity type: due to excess calories (5) Hypertension Status: Chronic Qualifiers: Hypertension type: essential hypertension Qualified Code(s): I10 - Essential (primary) hypertension (6) Osteoarthritis Status: Chronic Qualifiers: Osteoarthritis location: knee Osteoarthritis type: unspecified Laterality : bilateral Qualified Code(s): M17.0 - Bilateral primary osteoarthritis of knee (7) Seizure Status: Suspected - Follow-up Referral Minutes to complete discharge: 20 - AMA Did Patient Leave Against Medical Advice: No
[2019-10-18] MEDS: PSYLLIUM 5.85 GM PACKET PO SCH (13:50)
[2019-10-18] MEDS: THIAMINE HCL 100 MG TABLET (FP) PO SCH (21:31)
[2019-10-19 07:15] VITALS: BP 133/80; PULSE 99; TEMP 98.7
--- NOTE | 2019-10-19 08:36 | PN ---
[facility] Progress Note Note: Pt was seen this morning, Alert o x 3. Oob ambulating with steady gait. Vital Signs - 24 hr 10/18/19 10/19/19 10/19/19 10:00 00:30 03:30 Temperature Pulse Rate 105 H Respiratory 18 18 Rate Blood Pressure 126/77 10/19/19 07:15 Temperature 98.7 F Pulse Rate 99 H Respiratory 18 Rate Blood Pressure 133/80 A/P Stable for discharge D/C pt today as scheduled. D/w pt to follow up with treatment recommendations as scheduled.
== END 2019-10-19 09:05 | disposition home or self-care (01) | DRG 895 ==
LOC: YASAS 22:59 → Y3N 09-21 00:30 → Y3E 09-24 12:25
PROVIDERS: ADMIT Allergy & Immunology; ATTEND Allergy & Immunology
PROC: HZ42ZZZ Group Counseling for Substance Abuse Treatment, Cognitive-Behavioral (ICD-10-PCS; principal; 2019-09-21)
DX: F10.20 Alcohol dependence, uncomplicated (principal); F33.9 Major depressive disorder, recurrent, unspecified; I10 Essential (primary) hypertension; J45.909 Unspecified asthma, uncomplicated; K21.9 Gastro-esophageal reflux disease without esophagitis; M17.0 Bilateral primary osteoarthritis of knee; M12.9 Arthropathy, unspecified; Z86.69 Personal history of other diseases of the nervous system and sense organs; E66.9 Obesity, unspecified; Z68.37 Body mass index [BMI] 37.0-37.9, adult; Z91.018 Allergy to other foods; Z88.8 Allergy status to other drugs, medicaments and biological substances
CPT/HCPCS: 36415; 80053; 85025; 86593

== ENCOUNTER 2020-01-18 12:00 | Inpatient (IN) | payer OTHER ==
--- NOTE | 2020-01-18 12:20 | BHS.RME ---
Substance Use & Tx History - Substance Use History Alcohol Substance amount: 3 pints vodka Frequency of use: Daily Substance route: Oral Date of Last Use: 01/18/20 (3 am) - Last Treatment Date of last treatment: 09/20-10/19/19 Treatment type: Substance Use Disorder (EUSEBIA) Where was last treatment: Rehab (She completed detox and rehab at [facility]) CIWA Nausea/Vomitin-Mild Nausea/No Vomiting Muscle Tremors: 3 Anxiety: 3 Agitation: 2 Paroxysmal Sweats: 1-Minimal Palms Moist Orientation: 1-Uncertain about Date Tacttile Disturbances: 0-None Auditory Disturbances: 0-None Visual Disturbances: 0-None Headache: 1-Very Mild CIWA-Ar Total Score: 12
--- NOTE | 2020-01-18 12:46 | HP ---
CIWA Score Nausea/Vomitin-Mild Nausea/No Vomiting Muscle Tremors: 3 Anxiety: 3 Agitation: 2 Paroxysmal Sweats: 1-Minimal Palms Moist Orientation: 1-Uncertain about Date Tacttile Disturbances: 1-Very Mild Itch/Numbness Auditory Disturbances: 0-None Visual Disturbances: 0-None Headache: 1-Very Mild CIWA-Ar Total Score: 13 - Admission Criteria OASAS Guidelines: Admission for Medically Managed Detox: Requires at least one of the followin. CIWA greater than 12 2. Seizures within the past 24 hours 3. Delirium tremens within the past 24 hours 4. Hallucinations within the past 24 hours 5. Acute intervention needed for co occurring medical disorder 6. Acute intervention needed for co occurring psychiatric disorder 7. Severe withdrawal that cannot be handled at a lower level of care (continued vomiting, continued diarrhea, abnormal vital signs) requiring intravenous medication and/or fluids 8. Admitting History and Physical - Admission Chief Complaint: i am here for relapsig form alcohol History of Present Illness: this 59 years old female for alcohol detox,withdrawal symptom,syncope, no seizure ,multiple admissions in detox and rehab History Source: Patient - Past Medical History Pulmonary: Yes: Asthma Gastrointestinal: Yes: GERD ...LMP: 11/22/01 Musculoskeletal: Yes: Other (arthritis) Additional Past Medical History: arthritis both knees,asthma,cyst remove from right axilla - Smoking History Smoking history: Never smoked Have you smoked in the past 12 months: No Aproximately how many cigarettes per day: 0 - Alcohol/Substance Use Hx Alcohol Use: Yes - Social History Usual Living Arrangement: Yes: Alone ADL: Support Services Occupation: unemployed History of Recent Travel: No Admission ROS [facility] - HPI Chief Complaint: i need help to stop drinking alcohol Allergies/Adverse Reactions: Allergies Allergy/AdvReac Type Severity Reaction Status Date / Time chlordiazepoxide HCl Allergy Severe Swelling Verified 09/20/19 23:21 [From Librium] haloperidol [From Haldol] Allergy Severe Verified 01/18/20 13:21 lithium Allergy Severe Swelling Verified 01/18/20 13:21 Beef Containing Products Allergy Mild Vomiting Verified 01/18/20 13:21 divalproex sodium Allergy Mild Rash Verified 01/18/20 13:21 [From Depakote] pork derived (porcine) Allergy Mild Vomiting Verified 01/18/20 13:21 [Pork derived (porcine)] quetiapine fumarate Allergy Mild Rash Verified 01/18/20 13:21 [From Seroquel] risperidone Allergy Unknown Rash Verified 01/18/20 13:21 lactose AdvReac Intermediate Verified 01/18/20 13:21 History of Present Illness: this 59 years old female with alcohol dependence,seeking detox,withdrawal symptom, denied seizure syncope hypertension asthma arthritis major depression last detox [facility]06/25/19 to 06/29/19 rehab 09/21/19 to 10/19/19 longest sobriety 9 months Exam Limitations: No Limitations - Ebola screening Have you traveled outside of the country in the last 21 days: No Have you had contact with anyone from an Ebola affected area: No Have you been sick,other than usual withdrawal symptoms: No Do you have a fever: No - Review of Systems Constitutional: Loss of Appetite, Malaise, Night Sweats, Changes in sleep EENT: reports: Nose Congestion Respiratory: reports: Other (asthma) Cardiac: reports: No Symptoms Reported GI: reports: Nausea, Poor Appetite, Abdominal cramping : reports: No Symptoms Reported Musculoskeletal: reports: Back Pain, Muscle Pain Neuro: reports: Headache, Tremors Endocrine: reports: No Symptoms Reported Hematology: reports: No Symptoms Reported Psychiatric: reports: No Sypmtoms Reported, Judgement Intact, Mood/Affect Appropiate, Orientated x3, Depressed Other Systems: Reviewed and Negative Patient History - Patient Medical History Hx Anemia: No Hx Asthma: Yes (Pt is on Albuterol IH prn) Hx Chronic Obstructive Pulmonary Disease (COPD): No Hx Cancer: No Hx Cardiac Disorders: No Hx Congestive Heart Failure: No Hx Hypertension: Yes (no med) Hx Hypercholesterolemia: Yes (Not on medication) Hx Pacemaker: No HX Cerebrovascular Accident: No Hx Seizures: No Hx Dementia: No Hx Gastrointestinal Disorders: Yes (gerd) Hx Liver Disease: No Hx Genitourinary Disorders: No Hx Sexually Transmitted Disorders: No Hx Renal Disease (ESRD): No Hx Thyroid Disease: No Hx Human Immunodeficiency Virus (HIV): No (NEGATIVE 09/15) Hx Hepatitis C: No Hx Depression: Yes (LEXAPRO) Hx Suicide Attempt: Yes (age 17,trying to jump infront of a car) Hx Bipolar Disorder: No Hx Schizophrenia: No Other Medical History: no suicidal,no homicidal - Patient Surgical History Past Surgical History: Yes Hx Neurologic Surgery: No Hx Cataract Extraction: No Hx Cardiac Surgery: No Hx Lung Surgery: No Hx Breast Surgery: No Hx Breast Biopsy: No Hx Abdominal Surgery: No Hx Appendectomy: No Hx Cholecystectomy: No Hx Genitourinary Surgery: No Hx Section: Yes (1981, 1982) Hx Orthopedic Surgery: No Hx Hysterectomy: No Other Surgical History: incision and drainage, abscess, right armpit Anesthesia Reaction: No - PPD History Previous Implant?: Yes Documented Results: Negative w/proof Implanted On Prior [facility] Admission?: Yes Date: 09/23/19 Results: 0mm PPD to be Administered?: No - Reproductive History Patient is a Female of Child Bearing Age (11 -55 yrs old): No Last Menstrual Period: 11/22/01 Patient : No - Smoking Cessation Smoking history: Never smoked Have you smoked in the past 12 months: No Aproximately how many cigarettes per day: 0 Cigars Per Day: 0 Hx Chewing Tobacco Use: No - Substance & Tx. History Hx Alcohol Use: Yes Hx Substance Use: No Substance Use Type: Alcohol Hx Substance Use Treatment: Yes ([facility] to 06/29/19 detox,rehab 09/21/19 to 10/19/19) - Substances abused Alcohol Substance route: Oral Frequency: Daily Amount used: 2 pints of vodka/3 bottles of wine Age of first use: 17 Date of last use: 01/17/20 Admission Physical Exam BHS - Vital Signs Vital Signs: Vital Signs Temperature 97.4 F L 01/20/20 23:12 Pulse Rate 77 01/20/20 23:12 Respiratory Rate 22 H 01/21/20 00:27 Blood Pressure 138/83 01/20/20 23:12 O2 Sat by Pulse Oximetry (%) - Physical General Appearance: Yes: Moderate Distress, Tremorous, Irritable, Sweating, Anxious HEENTM: Yes: Normal ENT Inspection, BETH, Pharynx Normal Respiratory: Yes: Lungs Clear, No Respiratory Distress, Wheezing Neck: Yes: Within Normal Limits, Supple, Trachea in good position Breast: Yes: Breast Exam Deferred Cardiology: Yes: Within Normal Limits, Regular Rhythm, S1, S2 Abdominal: Yes: Within Normal Limits, Normal Bowel Sounds, Non Tender, Soft Genitourinary: Yes: Within Normal Limits Back: Yes: Normal Inspection Musculoskeletal: Yes: Back pain, Muscle Pain Extremities: Yes: Within Normal Limits 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: 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: diabetes 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 specialist II-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 NML intact, Fully Oriented, Alert, Motor Strength 5/5 Integumentary: Yes: Dry Lymphatic: Yes: Within Normal Limits - Diagnostic (1) Alcohol dependence with uncomplicated withdrawal Current Visit: Yes Status: Acute (2) Arthritis Current Visit: No Status: Chronic (3) Asthma Current Visit: No Status: Chronic (4) GERD (gastroesophageal reflux disease) Current Visit: No Status: Chronic Qualifiers: Esophagitis presence: esophagitis presence not specified Qualified Code(s) : K21.9 - Gastro-esophageal reflux disease without esophagitis (5) Major depressive disorder, recurrent Current Visit: No Status: Chronic (6) Syncope Current Visit: Yes Status: Acute Cleared for Admission S - Detox or Rehab S Level of Care: Medically Managed Detox Regimen/Protocol: Valium Breathalyzer - Breathalyzer Breathalyzer: 0 POC Urine test - Test device test lot number: [id number] Expiration date: 07/28/20 - Control test control: Yes Urine Drug Screen - Test Device Lot number: [id number] Expiration date: 10/27/21 - Control Is test valid?: Yes - Results Drug screen NEGATIVE: No Urine drug screen results: BZO-Benzodiazepines Inpatient Rehab Admission - Rehab Decision to Admit Inpatient rehab admission?: No
[2020-01-18] MEDS ORDERED: hydrOXYzine PAMOATE 25 MG CAPSULE (FP) PO PRN (12:59)
[2020-01-18] MEDS ORDERED: MELATONIN 5 MG TABLETS PO PRN (12:59)
[2020-01-18] MEDS ORDERED: BISMUTH SUBSALICYLATE 262 MG/15 ML BTL PO PRN (12:59)
[2020-01-18] MEDS ORDERED: ACETAMINOPHEN 325 MG TABLET (FP) PO PRN ×2 (12:59)
[2020-01-18] MEDS ORDERED: MAG HYDROX/AL HYDROX/SIMETH 30 ML UNIT-DOSE CUP PO PRN (12:59)
[2020-01-18] MEDS ORDERED: IBUPROFEN 400 MG TABLET (FP) PO PRN (12:59)
[2020-01-18] MEDS ORDERED: MAGNESIUM CITRATE 300 ML BOTTLE PO PRN (12:59)
[2020-01-18] MEDS ORDERED: METHOCARBAMOL 500 MG TABLET PO PRN (12:59)
[2020-01-18] MEDS ORDERED: MAGNESIUM HYDROX 2400MG/30ML ORAL SUSPENSION 30 ML CUP PO PRN (12:59)
[2020-01-18 13:13] VITALS: BMI 35.9
[2020-01-18] MEDS: diazePAM 5 MG TABLET PO PRN (15:28)
[2020-01-18] MEDS: diazePAM 5 MG TABLET PO SCH ×2 (15:29→22:50)
[2020-01-18 16:32] LABS: HEMATOCRIT 40.1 % (32.4-45.2); HEMOGLOBIN 13.4 GM/dL (10.7-15.3); MCH 31.1 pg (25.7-33.7); MCHC 33.4 g/dl (32.0-36.0); MEAN PLT VOLUME 9.9 fl (7.5-11.1); PLATELET COUNT 208 K/MM3 (134-434); RBC 4.31 M/mm3 (3.60-5.2); WHITE BLOOD COUNT 4.7 K/mm3 (4.0-10.0)
[2020-01-18 16:34] LABS: ALBUMIN 3.6 g/dl (3.4-5.0); BILIRUBIN,TOTAL 0.3 mg/dL (0.2-1); CALCIUM 9.2 mg/dL (8.5-10.1); CREATININE 0.8 mg/dL (0.55-1.3); POTASSIUM 3.6 mmol/L (3.5-5.1); TOT PROT 7.7 g/dl (6.4-8.2)
[2020-01-18] MEDS: THIAMINE HCL 100 MG TABLET (FP) PO SCH (22:50)
[2020-01-18] MEDS: FLUTICASONE PROP 0.05% 16 GM NASAL SPRAY NS SCH (22:50)
[2020-01-19] MEDS: diazePAM 5 MG TABLET PO SCH ×3 (06:15→22:48)
[2020-01-19] MEDS: FLUTICASONE PROP 0.05% 16 GM NASAL SPRAY NS SCH ×2 (10:58→22:49)
--- NOTE | 2020-01-19 11:03 | CONSULT ---
[facility] Psychiatric Consult - Data Date of interview: 01/19/20 Admission source: [facility] Identifying data: Revisit to [facility] and admission to [address] [place] [address] for this 59 y/o AA female self-referred for detoxification treatment (alcohol withdrawal). Patient is , mother of two, domiciled, unemployed and supported on SSI benefits. Substance Abuse History: Discussed with the patient. Details are concordant with current [facility] report as folllows : Smoking history: Never smoked. Have you smoked in the past 12 months: No. Aproximately how many cigarettes per day: 0. Cigars Per Day: 0. Hx Chewing Tobacco Use: No. - Substance & Tx. History. Hx Alcohol Use: Yes. Hx Substance Use: No. Substance Use Type: Alcohol. Hx Substance Use Treatment: Yes (PW06/25/19 to 06/29/19 detox,rehab 09/21/19 to ). - Substances abused. Alcohol. Substance route: Oral. Frequency: Daily. Amount used: 2 pints of vodka/3 bottles of wine. Age of first use: 17. Date of last use: 01/17/20 Medical History: Medical profile is remarkable for hypertension, dyslipidemia, obesity, bronchial asthma, antecedent of withdrawal-related seizures, peptic ulcer disease, arthritis (both knees) and history of surgeries ( sections + excision of cyst in right axilla). Psychiatric History: Patient endorses a history of multiple psychiatric hospitalizations. First psychiatric meltdown occurred at age 19 (suicide attempt via jumping into path of oncoming traffic). She reports past psychiatric admissions to [facility], Replaced By [facility], [facility], [facility] in [place], [facility], [facility] in [place], [place]). Ms Mott declares that she sees a psychiatrist at [facility] health clinic in [facility]. Physical/Sexual Abuse/Trauma History: Not discussed. Patient declines. Additional Comment: Negative toxicology. Mental Status Exam - Mental Status Exam Alert and Oriented to: Time, Place, Person Cognitive Function: Good Patient Appearance: Unkempt, Disheveled (obese) Mood: Withdrawn, Hopeful Affect: Appropriate, Normal Range Patient Behavior: Fatigued, Appropriate, Cooperative Speech Pattern: Clear, Appropriate Voice Loudness: Normal Thought Process: Intact, Goal Oriented Thought Disorder: Not Present Hallucinations: Denies Suicidal Ideation: Denies Homicidal Ideation: Denies Insight/Judgement: Poor Sleep: Well Appetite: Good Gait/Station: Normal Psychiatric Findings - Problem List (Reliance 1, 2,3) (1) Alcohol dependence with uncomplicated withdrawal Current Visit: Yes Status: Acute (2) Alcohol-induced mood disorder Current Visit: Yes Status: Chronic (3) History of depression Current Visit: Yes Status: Chronic - Initial Treatment Plan Initial Treatment Plan: Records ([facility]) revisited. Psychoeducation. Sleep hygiene. Detoxification. [facility] services discussed with patient. AA meetings. Resumed : lexapro 10 mg po daily. Side effects/benefits discussed with the patient. Ms Mott has expressed her agreement with this plan of care. Observation.
[2020-01-19] MEDS: PRENATAL VITAMINS W/ FOLIC ACID TABLET (FP) PO SCH (11:07)
--- NOTE | 2020-01-19 11:58 | PN ---
S CIWA - CIWA Score Nausea/Vomitin-No Nausea/No Vomiting Muscle Tremors: 2 Anxiety: 3 Agitation: 0-Normal Activity Paroxysmal Sweats: 3 Orientation: 0-Oriented Tacttile Disturbances: 0-None Auditory Disturbances: 0-None Visual Disturbances: 0-None Headache: 2-Mild CIWA-Ar Total Score: 10 S Progress Note (SOAP) Subjective: c/o headache, anxiety, sweats, and low back pain. Objective: 01/19/20 11:57 Vital Signs 01/19/20 01/19/20 07:49 08:53 Temperature 96.3 F L 99.5 F Pulse Rate 90 96 H Respiratory 18 20 Rate Blood Pressure 147/82 124/78 Laboratory Last Values WBC 4.7 K/mm3 (4.0-10.0) 01/18/20 15:00 RBC 4.31 M/mm3 (3.60-5.2) 01/18/20 15:00 Hgb 13.4 GM/dL (10.7-15.3) 01/18/20 15:00 Hct 40.1 % (32.4-45.2) 01/18/20 15:00 MCV 93.0 fl (80-96) 01/18/20 15:00 MCH 31.1 pg (25.7-33.7) 01/18/20 15:00 MCHC 33.4 g/dl (32.0-36.0) 01/18/20 15:00 RDW 15.0 % (11.6-15.6) 01/18/20 15:00 Plt Count 208 K/MM3 (134-434) 01/18/20 15:00 MPV 9.9 fl (7.5-11.1) 01/18/20 15:00 Sodium 142 mmol/L (136-145) 01/18/20 15:00 Potassium 3.6 mmol/L (3.5-5.1) 01/18/20 15:00 Chloride 108 mmol/L (98-107) H 01/18/20 15:00 Carbon Dioxide 29 mmol/L (21-32) 01/18/20 15:00 Anion Gap 6 MMOL/L (8-16) L 01/18/20 15:00 BUN 15.0 mg/dL (7-18) 01/18/20 15:00 Creatinine 0.8 mg/dL (0.55-1.3) 01/18/20 15:00 Est GFR (CKD-EPI)AfAm 92.87 01/18/20 15:00 Est GFR (CKD-EPI)NonAf 80.13 01/18/20 15:00 Random Glucose 108 mg/dL (74-106) H 01/18/20 15:00 Calcium 9.2 mg/dL (8.5-10.1) 01/18/20 15:00 Total Bilirubin 0.3 mg/dL (0.2-1) 01/18/20 15:00 AST 16 U/L (15-37) 01/18/20 15:00 ALT 26 U/L (13-61) 01/18/20 15:00 Alkaline Phosphatase 75 U/L (45-117) 01/18/20 15:00 Total Protein 7.7 g/dl (6.4-8.2) 01/18/20 15:00 Albumin 3.6 g/dl (3.4-5.0) 01/18/20 15:00 RPR Titer Nonreactive (NONREACTIVE) 01/18/20 15:00 Labs noted. Assessment: 01/19/20 11:57 AOX3, in no acute respiratory distress. Full ROM, ambulating in the unit. Withdrawal symptoms. Plan: continue detox.
[2020-01-19] MEDS: diazePAM 5 MG TABLET PO PRN (17:23)
[2020-01-19] MEDS: THIAMINE HCL 100 MG TABLET (FP) PO SCH (22:49)
[2020-01-20] MEDS: diazePAM 5 MG TABLET PO SCH ×2 (06:13→17:35)
--- NOTE | 2020-01-20 09:44 | PN ---
S CIWA - CIWA Score Nausea/Vomitin-No Nausea/No Vomiting Muscle Tremors: 1-None Visible, but [place] Anxiety: 1-Mildly Anxious Agitation: 0-Normal Activity Paroxysmal Sweats: 1-Minimal Palms Moist Orientation: 0-Oriented Tacttile Disturbances: 0-None Auditory Disturbances: 0-None Visual Disturbances: 1-Very Mild Sensitivity Headache: 1-Very Mild CIWA-Ar Total Score: 5 BHS Progress Note (SOAP) Subjective: 59 years old female admitted on 01/18/20 for alcohol withdrawal sx management treating with valium detox regiment observed the patient sitting on the edge of the bed eating breakfast feeling better today but "the food I can not eat" discussing obesity related medical conditions patient requests to be seen by a tobacco roller Objective: 01/20/20 09:43 Vital Signs Temperature 97.8 F 01/20/20 08:59 Pulse Rate 100 H 01/20/20 08:59 Respiratory Rate 18 01/20/20 08:59 Blood Pressure 123/73 01/20/20 08:59 O2 Sat by Pulse Oximetry (%) Laboratory Last Values WBC 4.7 K/mm3 (4.0-10.0) 01/18/20 15:00 RBC 4.31 M/mm3 (3.60-5.2) 01/18/20 15:00 Hgb 13.4 GM/dL (10.7-15.3) 01/18/20 15:00 Hct 40.1 % (32.4-45.2) 01/18/20 15:00 MCV 93.0 fl (80-96) 01/18/20 15:00 MCH 31.1 pg (25.7-33.7) 01/18/20 15:00 MCHC 33.4 g/dl (32.0-36.0) 01/18/20 15:00 RDW 15.0 % (11.6-15.6) 01/18/20 15:00 Plt Count 208 K/MM3 (134-434) 01/18/20 15:00 MPV 9.9 fl (7.5-11.1) 01/18/20 15:00 Sodium 142 mmol/L (136-145) 01/18/20 15:00 Potassium 3.6 mmol/L (3.5-5.1) 01/18/20 15:00 Chloride 108 mmol/L (98-107) H 01/18/20 15:00 Carbon Dioxide 29 mmol/L (21-32) 01/18/20 15:00 Anion Gap 6 MMOL/L (8-16) L 01/18/20 15:00 BUN 15.0 mg/dL (7-18) 01/18/20 15:00 Creatinine 0.8 mg/dL (0.55-1.3) 01/18/20 15:00 Est GFR (CKD-EPI)AfAm 92.87 01/18/20 15:00 Est GFR (CKD-EPI)NonAf 80.13 01/18/20 15:00 Random Glucose 108 mg/dL (74-106) H 01/18/20 15:00 Calcium 9.2 mg/dL (8.5-10.1) 01/18/20 15:00 Total Bilirubin 0.3 mg/dL (0.2-1) 01/18/20 15:00 AST 16 U/L (15-37) 01/18/20 15:00 ALT 26 U/L (13-61) 01/18/20 15:00 Alkaline Phosphatase 75 U/L (45-117) 01/18/20 15:00 Total Protein 7.7 g/dl (6.4-8.2) 01/18/20 15:00 Albumin 3.6 g/dl (3.4-5.0) 01/18/20 15:00 RPR Titer Nonreactive (NONREACTIVE) 01/18/20 15:00 lab noted Assessment: 01/20/20 09:44 alcohol withdrawal Plan: valium regiment tobacco roller referral
[2020-01-20] MEDS: PRENATAL VITAMINS W/ FOLIC ACID TABLET (FP) PO SCH (10:31)
[2020-01-20] MEDS: FLUTICASONE PROP 0.05% 16 GM NASAL SPRAY NS SCH ×2 (10:31→22:29)
[2020-01-20] MEDS: ESCITALOPRAM OXALATE 10 MG TABLET PO SCH (10:31)
[2020-01-20] MEDS ORDERED: ONDANSETRON *ODT* 4 MG TABLET SL ONE (11:11)
[2020-01-20] MEDS: THIAMINE HCL 100 MG TABLET (FP) PO SCH (22:29)
[2020-01-21] MEDS: MENTHOL/PHENOL 1 EACH UD MM PRN (03:29)
[2020-01-21] MEDS ORDERED: diazePAM 5 MG TABLET PO ONE (06:00)
--- NOTE | 2020-01-21 08:59 | HP ---
[facility] Rehab Assess/Revision - Admission History Admitted to Rehab from: [facility] Date of Admission to Rehab: 01/21/20 - Vital signs Vital Signs: Vital Signs Period Temp Pulse Resp BP Sys/Martinez Pulse Ox Last 24 Hr 96.9 F-98.6 F 77-105 18-22 123-139/72-83 - Findings Detox History & Physical reviewed: Yes Concur with findings: Yes Comments/Additional Findings: transferred from detox to rehab admission as per protocol Inpatient Rehab Admission - Rehab Decision to Admit Inpatient rehab admission?: Yes - Initial Determination Are CD services needed?: Yes Free of communicable disease: Yes Not in need of hospitalization: Yes - Rehab Admission Criteria Previous failed treatment: Yes Poor recovery environment: Yes Comorbidities: Yes Lacks judgement: Yes Patient is meeting Inpatient Rehab admission criteria:: Yes
[2020-01-21] MEDS: PRENATAL VITAMINS W/ FOLIC ACID TABLET (FP) PO SCH (10:11)
[2020-01-21] MEDS: FLUTICASONE PROP 0.05% 16 GM NASAL SPRAY NS SCH ×2 (10:11→22:44)
[2020-01-21] MEDS: ESCITALOPRAM OXALATE 10 MG TABLET PO SCH (10:11)
--- NOTE | 2020-01-21 13:33 | PN ---
[facility] Progress Note Note: Patient admitted to Rehab for alcohol dependence after completing detox today on 3 . Patient has hx of HTN, arthritis, asthma and depression. Reports having PCP Dr. Del Rosario at [facility]. Labs reviewed and results given to patient. She denies any medical complaints today. Laboratory Tests 01/18/20 01/18/20 01/18/20 15:00 15:00 15:00 WBC 4.7 RBC 4.31 Hgb 13.4 Hct 40.1 MCV 93.0 MCH 31.1 MCHC 33.4 RDW 15.0 Plt Count 208 MPV 9.9 Sodium 142 Potassium 3.6 Chloride 108 H Carbon Dioxide 29 Anion Gap 6 L BUN 15.0 Creatinine 0.8 Est GFR (CKD-EPI)AfAm 92.87 Est GFR (CKD-EPI)NonAf 80.13 Random Glucose 108 H Calcium 9.2 Total Bilirubin 0.3 AST 16 ALT 26 Alkaline Phosphatase 75 Total Protein 7.7 Albumin 3.6 RPR Titer Nonreactive Vital Signs Temperature 97.9 F 01/21/20 11:12 Pulse Rate 94 H 01/21/20 11:12 Respiratory Rate 18 01/21/20 11:12 Blood Pressure 116/73 01/21/20 11:12 O2 Sat by Pulse Oximetry (%) A/P: alcohol dependence htn asthma continue rehab services
[2020-01-21] MEDS: THIAMINE HCL 100 MG TABLET (FP) PO SCH (22:45)
[2020-01-22] MEDS ORDERED: PT OWN MED DRAWER 7, Y5N ONE (09:06)
[2020-01-22] MEDS: ESCITALOPRAM OXALATE 10 MG TABLET PO SCH (09:43)
[2020-01-22] MEDS: FLUTICASONE PROP 0.05% 16 GM NASAL SPRAY NS SCH ×2 (09:44→21:38)
[2020-01-22] MEDS: MENTHOL/PHENOL 1 EACH UD MM PRN (09:44)
[2020-01-22] MEDS: PRENATAL VITAMINS W/ FOLIC ACID TABLET (FP) PO SCH (09:45)
[2020-01-22] MEDS ORDERED: COLLOIDAL OATMEAL 1 BAR EACH TP PRN (13:58)
[2020-01-22] MEDS: ALBUTEROL SO4 HFA INHALER IH PRN (16:36)
[2020-01-22] MEDS ORDERED: ALBUTEROL SO4 2.5/IPRATROPIUM 0.5 INH SOL 3 ML VIAL.NEB. NEB PRN (16:39)
[2020-01-22] MEDS: THIAMINE HCL 100 MG TABLET (FP) PO SCH (21:39)
[2020-01-23] MEDS: ALBUTEROL SO4 HFA INHALER IH PRN ×2 (00:05→18:02)
[2020-01-23] MEDS: guaiFENesin 200 MG/10 ML 10 ML UNIT-DOSE CUPS PO PRN ×2 (00:06→09:35)
[2020-01-23] MEDS ORDERED: PT OWN MED DRAWER 7, Y5N ONE (09:01)
[2020-01-23] MEDS: ESCITALOPRAM OXALATE 10 MG TABLET PO SCH (09:34)
[2020-01-23] MEDS: PRENATAL VITAMINS W/ FOLIC ACID TABLET (FP) PO SCH (09:36)
[2020-01-23] MEDS: FLUTICASONE PROP 0.05% 16 GM NASAL SPRAY NS SCH ×2 (13:46→21:53)
[2020-01-23 18:13] VITALS: BP 124/67; PULSE 88; TEMP 98.2
--- NOTE | 2020-01-23 18:19 | HOSP ---
Physical Examination Vital Signs: Vital Signs Temperature 98.2 F 01/23/20 18:13 Pulse Rate 88 01/23/20 18:13 Respiratory Rate 20 01/23/20 18:13 Blood Pressure 124/67 01/23/20 18:13 O2 Sat by Pulse Oximetry (%) 97 01/22/20 16:38 Labs: CBC, BMP 01/18/20 15:00 01/18/20 15:00 Hospitalist Encounter Assessment: Was called to see the patient because of complaint of shortness of breath associated with some chest pain. Symptoms started yesterday and have been more or less constant. Pt states she has been coughing a bit, which makes the chest pain worse. Pain in overlying the sternum, moderate, worse with deep breaths and hurts if she presses on her chest. Per nurse, pt complained of SOB yesterday but refused her asthma inhaler. Vital signs within normal limits. Normotensive, afebrile, good O2 sat. HEENT: NCAT, EOMI, moist membranes Cor: rrr, normal s1s2, no mrg Pulm: bibasilr expiratory wheezing Abd: soft, nontender, nondistended Ext: no swelling, 2+ pulses EKG ordered and reviewed. Normal. No change from prior. Albuterol inhaler administered. Pt states improvement in symptoms. Nurses advised monitor and to call with any change. Visit type - Emergency Visit Emergency Visit: No - New Patient This patient is new to me today: Yes Date on this admission: 01/23/20 - Critical Care Critical Care patient: No
--- NOTE | 2020-01-23 20:27 | PN ---
Teaching Attending Note Name of Resident: Yandel Peterson ATTENDING PHYSICIAN STATEMENT I saw and evaluated the patient. I reviewed the resident's note and discussed the case with the resident. I agree with the resident's findings and plan as documented. SUBJECTIVE: pt w/ c/o shortness of breath and cough x 1 day , states " a little " improvement after nebulizer tx. pt appears drowsy , responds to verbal stimuli . PMHX : asthma , HTN OBJECTIVE: moderate distress CV RRR S1 S2 Resp : tachypneic , + wheezing in all lung bah Vital Signs - 24 hr 01/23/20 01/23/20 06:38 18:13 Temperature 97.9 F 98.2 F Pulse Rate 80 88 Respiratory 18 20 Rate Blood Pressure 122/84 124/67 ASSESSMENT AND PLAN: ALbuterol nebulizer tx & transfer to [facility] ED for further evaluation . Nursing pressure control supervisor aware
[2020-01-23] MEDS: THIAMINE HCL 100 MG TABLET (FP) PO SCH (21:53)
--- NOTE | 2020-01-24 11:55 | EKG ---
Test Reason : Blood Pressure : / mmHG Vent. Rate : 078 BPM Atrial Rate : 078 BPM P-R Int : 156 ms QRS Dur : 082 ms QT Int : 400 ms P-R-T Axes : 057 006 008 degrees QTc Int : 456 ms NORMAL SINUS RHYTHM NORMAL ECG WHEN COMPARED WITH ECG OF 23-JAN-2020 18:10, NO SIGNIFICANT CHANGE WAS FOUND Confirmed by THELMA ORTIZ MD ([id number]) on 01/24/2020 11:55:32 AM Referred By: Confirmed By:THELMA ORTIZ MD
== END 2020-01-23 19:45 | disposition short-term general hospital (02) | DRG 895 ==
LOC: YASAS 12:00 → Y3N 13:00 → Y3E 01-21 10:55
PROVIDERS: ADMIT Allergy & Immunology; ATTEND Allergy & Immunology
PROC: HZ42ZZZ Group Counseling for Substance Abuse Treatment, Cognitive-Behavioral (ICD-10-PCS; principal; 2020-01-18)
DX: F10.20 Alcohol dependence, uncomplicated (principal); F33.9 Major depressive disorder, recurrent, unspecified; F10.24 Alcohol dependence with alcohol-induced mood disorder; I10 Essential (primary) hypertension; J45.909 Unspecified asthma, uncomplicated; K21.9 Gastro-esophageal reflux disease without esophagitis; E73.9 Lactose intolerance, unspecified; M12.9 Arthropathy, unspecified; R05 Cough; R06.2 Wheezing; R06.02 Shortness of breath; Z88.8 Allergy status to other drugs, medicaments and biological substances; Z91.018 Allergy to other foods
CPT/HCPCS: 36415; 80053; 85027; 86593; 93005; 93010; 94640; Q0162

== ENCOUNTER 2020-01-23 21:50 | Inpatient (IN) | payer OTHER ==
[2020-01-23] MEDS ORDERED: methylPREDNISolone NA SUCC 125 MG/2 ML VIAL IVPUSH ONE (22:09)
[2020-01-23] MEDS ORDERED: ALBUTEROL SO4 2.5/IPRATROPIUM 0.5 INH SOL 3 ML VIAL.NEB. NEB ONE (22:11)
[2020-01-23] MEDS: ALBUTEROL SO4 2.5/IPRATROPIUM 0.5 INH SOL 3 ML VIAL.NEB. NEB SCH ×3 (22:19→22:55)
[2020-01-23] MEDS ORDERED: methylPREDNISolone NA SUCC 125 MG/2 ML VIAL ONE (22:22)
[2020-01-23] MEDS ORDERED: LIDOCAINE VISCOUS 2% ORAL/TOP 20 ML UNIT-DOSE CUP MM ONE (22:26)
[2020-01-23] MEDS ORDERED: MAG HYDROX/AL HYDROX/SIMETH 30 ML UNIT-DOSE CUP PO ONE (22:26)
[2020-01-23] MEDS ORDERED: FAMOTIDINE 20 MG/50 ML IVPB 20 MG/50 ML MG IVPB ONE ×2 (22:26→23:41)
--- NOTE | 2020-01-23 22:54 | PDOC ---
History of Present Illness - General Chief Complaint: Respiratory Stated Complaint: CHEST PAIN Time Seen by Provider: 01/23/20 22:09 - History of Present Illness Initial Comments: 01/23/20 22:28 59 y/o F with PMH of Asthma (never intubated), TATY, GERD/PUD, Arthritis of the knees, Alcohol use disorder who present to the ED from [facility] because of epigastric chest pain. Pt describes the pain as sharp, 7/10, nonradiating, associated with SOB & non productive cough and without alleviating factors. However, pain is exacerbated by coughing and breathing. Pt denies any F/C//N/V/ D. No recent sick contact. No flu shot this season. Pt was on day 4 of valium at [facility]. PSH: 2 C sections, R axillary cyst removal Social Hx: 3 bottles of jas daily with last drink on 01/18/20 ( pt been at [facility] for detox) ROS: Constitutional: no fever,no chills HEENT: no throat pain, no dysphagia Cardiovascular: chest pain, no palpitations Respiratory: cough, shortness of breath Gastrointestinal: no Nausea and vomiting Genitourinary: no dysuria no urgency Musculoskeletal: no myalgia, no arthralgia Skin: no bruising Neurologic:no weakness Psych: no agitation, no anxiety PE: VSS GEN: NAD Neuro: CN 2-12 intact, no nystagmus, motor strength 5/5 in all muscle groups, sensation intact throughout, 2+ reflexes in U&L extremities, gait normal HEENT: PERRLA, moist membrane, clear conjunctiva NECK: no JVD CHEST:decreased breath sounds b/l with diffuse wheezing, poor air entry HEART: RRR no murmur, rubs or gallop ABDOMEN: + BS, obese abdomen, NTND Extremities: 2+ pulses, no edema SKIN: no bruises MSK: no arthralgia, no joint tenderness Assessment : Asthma exacerbation vs GERD vs atypical ACS 01/23/20 22:54 duonebs x4, solumedrol, GI cocktail : pepcid, maalox, viscous lidocaine CBC, CMP, Mag, phos, PT/INR/PTT, Troponin I, EKG, CXR, UA 01/23/20 23:[address]/TW abnormality, QTC 456msec 01/23/20 23:29 CBC WBC 6.1 K/mm3 (4.0-10.0) 01/23/20 23:10 RBC 4.36 M/mm3 (3.60-5.2) 01/23/20 23:10 Hgb 13.5 GM/dL (10.7-15.3) 01/23/20 23:10 Hct 40.7 % (32.4-45.2) 01/23/20 23:10 MCV 93.4 fl (80-96) 01/23/20 23:10 MCH 30.9 pg (25.7-33.7) 01/23/20 23:10 MCHC 33.1 g/dl (32.0-36.0) 01/23/20 23:10 RDW 15.0 % (11.6-15.6) 01/23/20 23:10 Plt Count 204 K/MM3 (134-434) 01/23/20 23:10 MPV 9.3 fl (7.5-11.1) 01/23/20 23:10 Absolute Neuts (auto) 2.7 K/mm3 (1.5-8.0) 01/23/20 23:10 Neutrophils % 44.0 % (42.8-82.8) 01/23/20 23:10 Lymphocytes % 44.1 % (8-40) H 01/23/20 23:10 Monocytes % 8.6 % (3.8-10.2) 01/23/20 23:10 Eosinophils % 2.7 % (0-4.5) 01/23/20 23:10 Basophils % 0.6 % (0-2.0) 01/23/20 23:10 Nucleated RBC % 0 % (0-0) 01/23/20 23:10 INR, PTT INR 1.04 (0.83-1.09) 01/23/20 23:10 PT 12.3 01/24/20 00:52 Lab is down and unable to provide chemistry including troponin to r/o ACS; as a result patient is to be transferred to a different hospital for continuity of care 01/24/20 00:59 CXR with increased bronchial marking and. white out of the LLL field. will send for pro BNP Pt continues to wheeze. Will give albuterol neb 01/24/20 01:05 chemistry back up; will resume care as planned 01/24/20 02:33 CMP Sodium 146 mmol/L (136-145) H 01/23/20 23:10 Potassium 3.7 mmol/L (3.5-5.1) 01/23/20 23:10 Chloride 112 mmol/L (98-107) H 01/23/20 23:10 Carbon Dioxide 28 mmol/L (21-32) 01/23/20 23:10 Anion Gap 5 MMOL/L (8-16) L 01/23/20 23:10 BUN 20.8 mg/dL (7-18) H 01/23/20 23:10 Creatinine 0.7 mg/dL (0.55-1.3) 01/23/20 23:10 Est GFR (CKD-EPI)AfAm 109.15 01/23/20 23:10 Est GFR (CKD-EPI)NonAf 94.17 01/23/20 23:10 Random Glucose 85 mg/dL (74-106) 01/23/20 23:10 Calcium 7.8 mg/dL (8.5-10.1) L 01/23/20 23:10 Phosphorus 4.0 mg/dL (2.5-4.9) 01/23/20 23:10 Magnesium 2.0 mg/dL (1.8-2.4) 01/23/20 23:10 Total Bilirubin < 0.1 mg/dL (0.2-1) L 01/23/20 23:10 AST 13 U/L (15-37) L 01/23/20 23:10 ALT 21 U/L (13-61) 01/23/20 23:10 Alkaline Phosphatase 60 U/L (45-117) 01/23/20 23:10 Troponin I < 0.02 ng/ml (0.00-0.05) 01/23/20 23:10 B-Natriuretic Peptide 18.2 pg/ml (5-125) 01/23/20 23:10 Total Protein 6.0 g/dl (6.4-8.2) L 01/23/20 23:10 Albumin 2.8 g/dl (3.4-5.0) L 01/23/20 23:10 e/o dehydration with mild hypernatremia, pre renal azotemia, BNP 18.2 will give 1L NS for now 01/24/20 02:34 will add on D-dimer to screen for PE as pt has history of asthma, SOB, pleuritic chest pain 01/24/20 02:42 Pt continues to wheeze diffusely despite duonebs x4, medrol 125 and 1 albuterol will give 2 gm of mag and admit 01/24/20 02:48 Past History - Past Medical History Allergies/Adverse Reactions: Allergies Allergy/AdvReac Type Severity Reaction Status Date / Time chlordiazepoxide HCl Allergy Severe Swelling Verified 01/23/20 23:18 [From Librium] haloperidol [From Haldol] Allergy Severe Verified 01/23/20 23:18 lithium Allergy Severe Swelling Verified 01/23/20 23:18 Beef Containing Products Allergy Mild Vomiting Verified 01/23/20 23:18 divalproex sodium Allergy Mild Rash Verified 01/23/20 23:18 [From Depakote] pork derived (porcine) Allergy Mild Vomiting Verified 01/23/20 23:18 [Pork derived (porcine)] quetiapine fumarate Allergy Mild Rash Verified 01/23/20 23:18 [From Seroquel] risperidone Allergy Unknown Rash Verified 01/23/20 23:18 lactose AdvReac Intermediate Verified 01/23/20 23:18 Home Medications: Ambulatory Orders Albuterol Sulfate Inhaler - [Ventolin HFA Inhaler -] 2 inh IH Q4HPO PRN #1 inh 03/03/19 Escitalopram Oxalate [Lexapro -] 20 mg PO DAILY 01/18/20 Sertraline HCl [Zoloft -] 50 mg PO DAILY 01/18/20 Omeprazole Magnesium [Prilosec] 20 mg PO DAILY 01/21/20 Anemia: No Asthma: Yes (Pt is on Albuterol IH prn) Cancer: No Cardiac Disorders: No CVA: No COPD: No CHF: No Dementia: No Diabetes: No GI Disorders: Yes (gerd) Disorders: No HTN: Yes (no med) Hypercholesterolemia: Yes (Not on medication) Kidney Stones: No Liver Disease: No Seizures: No Thyroid Disease: No - Surgical History Abdominal Surgery: No Appendectomy: No Cardiac Surgery: No Cholecystectomy: No Lung Surgery: No Neurologic Surgery: No Orthopedic Surgery: No - Reproductive History PID: No - Psycho Social/Smoking Cessation Hx Smoking Status: No Smoking History: Never smoked Have you smoked in the past 12 months: No Number of Cigarettes Smoked Daily: 0 Cigars Per Day: 0 'Breaking Loose' booklet given: 02/02/17 Hx Alcohol Use: Yes Drug/Substance Use Hx: No Substance Use Type: Alcohol Hx Substance Use Treatment: Yes (PW06/25/19 to 06/29/19 detox,rehab 09/21/19 to 10/19/19) ED Treatment Course - LABORATORY CBC & Chemistry Diagram: 01/23/20 23:10 01/23/20 23:10 - RADIOLOGY Radiology Studies Ordered: Category Date Time Status CHEST PA & LAT [RAD] Stat Radiology 01/23/20 22:11 Ordered Discharge - Discharge Information Problems reviewed: Yes Clinical Impression/Diagnosis: Asthma exacerbation Qualifiers: Asthma severity: unspecified severity Asthma persistence: unspecified Qualified Code(s): J45.901 - Unspecified asthma with (acute) exacerbation Condition: Stable - Admission Yes - Follow up/Referral - Patient Discharge Instructions - Post Discharge Activity
[2020-01-23 23:23] LABS: BASO % 0.6 % (0-2.0); EOS % 2.7 % (0-4.5); HEMATOCRIT 40.7 % (32.4-45.2); HEMOGLOBIN 13.5 GM/dL (10.7-15.3); LYMPH % 44.1 % (8-40); MCH 30.9 pg (25.7-33.7); MCHC 33.1 g/dl (32.0-36.0); MEAN CELL VOLUME 93.4 fl (80-96); MEAN PLT VOLUME 9.3 fl (7.5-11.1); MONO % 8.6 % (3.8-10.2); PLATELET COUNT 204 K/MM3 (134-434); RBC 4.36 M/mm3 (3.60-5.2); WHITE BLOOD COUNT 6.1 K/mm3 (4.0-10.0)
[2020-01-23] MEDS ORDERED: MAG HYDROX/AL HYDROX/SIMETH 30 ML UNIT-DOSE CUP ONE (23:41)
[2020-01-23] MEDS ORDERED: LIDOCAINE VISCOUS 2% ORAL/TOP 20 ML UNIT-DOSE CUP ONE (23:41)
[2020-01-23 23:52] LABS: INR 1.04 (0.83-1.09); PROTHROMBIN TIME (PATIENT) 12.3 SEC (9.7-13.0)
[2020-01-24] MEDS ORDERED: ALBUTEROL SO4 0.5 % INH SOLN 2.5 MG/0.5 ML VIAL.NEB. NEB ONE (01:05)
[2020-01-24] MEDS ORDERED: ALBUTEROL SO4 0.083% IH SOL 2.5 MG/3 ML VIAL.NEB. NEB ONE (01:41)
[2020-01-24 01:51] LABS: N-TERMINAL BNP 18.2 pg/ml (5-125)
[2020-01-24 02:00] LABS: ALBUMIN 2.8 g/dl (3.4-5.0); ALK PHOS 60 U/L (45-117); ANION GAP 5 MMOL/L (8-16); BILIRUBIN,TOTAL < 0.1 mg/dL (0.2-1); BLOOD UREA NITROGEN 20.8 mg/dL (7-18); CALCIUM 7.8 mg/dL (8.5-10.1); CHLORIDE 112 mmol/L (98-107); CO2 28 mmol/L (21-32); CREATININE 0.7 mg/dL (0.55-1.3); GLUCOSE,RANDOM 85 mg/dL (74-106); POTASSIUM 3.7 mmol/L (3.5-5.1); SGOT/AST 13 U/L (15-37); SGPT/ALT 21 U/L (13-61); SODIUM 146 mmol/L (136-145)
[2020-01-24] MEDS ORDERED: SODIUM CHLORIDE 1,000 ML IV STA (02:32)
[2020-01-24] MEDS ORDERED: MAGNESIUM SULF 50% (8.12 MEQ/2 ML-1 GM VIAL) IVPB ONE (02:47)
[2020-01-24] MEDS ORDERED: MAGNESIUM 1GM/D5W - 2 GM/200 ML IVPB IVPB ONE (03:09)
--- NOTE | 2020-01-24 03:57 | PN ---
Teaching Attending Note Name of Resident: Jeanne Sainz ATTENDING PHYSICIAN STATEMENT I saw and evaluated the patient. I reviewed the resident's note and discussed the case with the resident. I agree with the resident's findings and plan as documented. SUBJECTIVE: Patient is a 59 year old woman with a PMH of Asthma (never intubated), TATY, GERD /PUD, Arthritis of the knees and Alcohol abuse who presents to the ER from [facility] because of epigastric discomfort and wheezing. Patient describes the pain as sharp, 7/10, nonradiating, associated with SOB & non productive cough and without alleviating factors. However, pain is exacerbated by coughing and breathing. She denies fever, chills, nausea, vomiting, diarrhea or dysuria. No Flu vaccine this season. Patient was on day 4 of Valium at [facility]. Denies tobacco or illicit drug use. No sick contacts or recent travels. OBJECTIVE: Alert Vital Signs Period Temp Pulse Resp BP Sys/Martinez Pulse Ox Last 24 Hr 98.4 F 82 23 125/51 98 HEENT: No Jaundice, eye redness or discharge, PERRLA, EOMI. Normocephalic, atraumatic. External ears are normal and hearing is grossly intact. No nasal discharge. Neck: Supple, nontender. No palpable adenopathy or thyromegaly. No JVD Chest: Good effort. Clear to auscultation and percussion. Heart: Regular. No S3, rub or murmur Abdomen: Not distended, soft, nontender and no HSM. No rebound or guarding. Normal bowel sounds. Ext: Peripheral pulses intact. No leg edema. Skin: Warm and dry. No petechiae, rash or ecchymosis. Neuro: Alert. Oriented x3. CN 2-12 grossly intact. Sensation grossly intact in all four extremities and DTR are symmetric. Psych: Appropriate mood and affect. Good insight. Home Medications Medication Instructions Recorded Albuterol Sulfate Inhaler - 2 inh IH Q4HPO PRN #1 inh 03/03/19 [Ventolin HFA Inhaler -] Escitalopram Oxalate [Lexapro -] 20 mg PO DAILY 01/18/20 Sertraline HCl [Zoloft -] 50 mg PO DAILY 01/18/20 Omeprazole Magnesium [Prilosec] 20 mg PO DAILY 01/21/20 Abnormal Lab Results 01/23/20 01/23/20 23:10 23:10 Lymphocytes % 44.1 H Sodium 146 H Chloride 112 H Anion Gap 5 L BUN 20.8 H Calcium 7.8 L Total Bilirubin < 0.1 L AST 13 L Total Protein 6.0 L Albumin 2.8 L ASSESSMENT AND PLAN: 1. Asthma exacerbation/Chest pain - Chest pain is atypical. EKG shows NSR with rate of [address]-T wave changes. No acute abnormality on CXR. Urinalysis pending. Got Duoneb, GI cocktail, IV NS and Viscous lidocaine in the ER. Wheezing resolved in the ER. Will treat for Asthma exacerbation with Duoneb , Solumedrol, Singulair, Symbicort and Azithromycin. Consult Pulmonary. Will continue comprehensive care for all of patients comorbid conditions. 2. Hypoalbuminemia - Possibly due to combined effects of malnutrition and inflammation associated with comorbid chronic conditions. Will ensure adequate dietary protein intake and also consult risk manager. Tobacco Use Counseled on risks associated with tobacco use. We will provide patient all the necessary assistance to facilitate smoking cessation and prescribe Nicotine patch. 3. Alcohol abuse - Implement [facility] alcohol withdrawal protocol and do neurochecks. Implement seizure, fall and aspiration precautions. Treat with thiamine and folic acid and monitor electrolytes (Ca,Mg,K,P). Counseled patient about abstaining from alcohol. Will consult software support specialist and refer to alcohol detox upon discharge. 4. DVT prophylaxis - Lovenox 40 mg SQ q 24 hours. 5. Advance directives - Full code
[2020-01-24] MEDS ORDERED: ALBUTEROL SO4 2.5/IPRATROPIUM 0.5 INH SOL 3 ML VIAL.NEB. NEB PRN (05:59)
--- NOTE | 2020-01-24 06:32 | HP ---
CHIEF COMPLAINT: wheezing PCP: HISTORY OF PRESENT ILLNESS: 59 y.o. F from rehab at [facility] alcohol abuse, depression, GERD, asthma ( moderate persistent). arthritis presenting for wheezing. Patient says she completed valium detox @ [facility] and is now in rehab. This afternoon she began to have diffuse wheezing b/l and knew she was having an asthma exacerbation as she has had many in the past. Also endorsed midepigastric tenderness, nonradiating, exacerbated with deep inspiration. The patient takes only inhaled albuterol at home although was told by her PCP she would need to start LABAs or steroids but she never picked them up from the pharmacy. She has never been intubated in the past. In ED was given solumedrol, duonebs, mag and ventolin inhaler w/ resolution of wheezing; however, she still notes a pleuritic "chest tightness". ER course was notable for: (1) solumedrol 125mg IV (2) duonebs x4, alb neb x1 (3) Mag 2g (4) pepcid (5) EKG: NSR, no ST elevations/ no T wave inversions. qtc 456. troponin negative x1 Recent Travel: denies PAST MEDICAL HISTORY: as per hpi PAST SURGICAL HISTORY: Social History: Smoking: denies Alcohol: in rehab Drugs: denies Allergies chlordiazepoxide HCl [From Librium] Allergy (Severe, Verified 01/24/20 04:33) Swelling Dr. Matthews enters aware of allergy with Valium Protocol (kvd 01/16/14) haloperidol [From Haldol] Allergy (Severe, Verified 01/24/20 04:33) Lockjaw lithium Allergy (Severe, Verified 01/24/20 04:33) Swelling Beef Containing Products Allergy (Mild, Verified 01/24/20 04:33) Vomiting divalproex sodium [From Depakote] Allergy (Mild, Verified 01/24/20 04:33) Rash pork derived (porcine) [Pork derived (porcine)] Allergy (Mild, Verified 04:33) Vomiting quetiapine fumarate [From Seroquel] Allergy (Mild, Verified 01/24/20 04:33) Rash risperidone Allergy (Unknown, Verified 01/24/20 04:33) Rash lactose Adverse Reaction (Intermediate, Verified 01/24/20 04:33) diarrhea HOME MEDICATIONS: Home Medications Medication Instructions Recorded Albuterol Sulfate Inhaler - 2 inh IH Q4HPO PRN #1 inh 03/03/19 [Ventolin HFA Inhaler -] Escitalopram Oxalate [Lexapro -] 20 mg PO DAILY 01/18/20 Sertraline HCl [Zoloft -] 50 mg PO DAILY 01/18/20 Omeprazole Magnesium [Prilosec] 20 mg PO DAILY 01/21/20 REVIEW OF SYSTEMS CONSTITUTIONAL: Absent: fever, chills, diaphoresis, generalized weakness, malaise, loss of appetite, weight change HEENT: Absent: rhinorrhea, nasal congestion, throat pain, throat swelling, difficulty swallowing, mouth swelling, ear pain, eye pain, visual changes CARDIOVASCULAR: Absent: chest pain, syncope, palpitations, irregular heart rate, lightheadedness , peripheral edema RESPIRATORY: shortness of breath, dyspnea with exertion Absent: cough, orthopnea, wheezing, stridor, hemoptysis GASTROINTESTINAL: Absent: abdominal pain, abdominal distension, nausea, vomiting, diarrhea, constipation, melena, hematochezia GENITOURINARY: Absent: dysuria, frequency, urgency, hesitancy, hematuria, flank pain, genital pain MUSCULOSKELETAL: Absent: myalgia, arthralgia, joint swelling, back pain, neck pain SKIN: Absent: rash, itching, pallor HEMATOLOGIC/IMMUNOLOGIC: Absent: easy bleeding, easy bruising, lymphadenopathy, frequent infections ENDOCRINE: Absent: unexplained weight gain, unexplained weight loss, heat intolerance, cold intolerance NEUROLOGIC: Absent: headache, focal weakness or paresthesias, dizziness, unsteady gait, seizure, mental status changes, bladder or bowel incontinence PSYCHIATRIC: Absent: anxiety, depression, suicidal or homicidal ideation, hallucinations. PHYSICAL EXAMINATION Vital Signs - 24 hr 01/23/20 01/23/20 01/23/20 22:40 22:42 22:45 Temperature 98.4 F 98.4 F Pulse Rate 82 Pulse Rate [ 82 Apical] Respiratory 18 23 H Rate Blood Pressure 125/51 L Blood Pressure 125/51 L [Left Arm] O2 Sat by Pulse 98 98 96 Oximetry (%) 01/24/20 04:49 Temperature 99.2 F Pulse Rate Pulse Rate [ 76 Apical] Respiratory 20 Rate Blood Pressure Blood Pressure 147/63 [Left Arm] O2 Sat by Pulse 96 Oximetry (%) GENERAL: Awake, alert, and fully oriented, in no acute distress. HEENT: NCAT no jvd MMM LUNGS: Breath sounds equal, clear to auscultation bilaterally. No wheezes, and no crackles. No accessory muscle use. HEART: Regular rate and rhythm, normal S1 and S2 without murmur, rub or gallop. ABDOMEN: Soft, nontender, not distended, normoactive bowel sounds MUSCULOSKELETAL: Normal range of motion at all joints UPPER EXTREMITIES: 2+ pulses, warm, well-perfused. No peripheral edema. LOWER EXTREMITIES: 2+ pulses, warm, well-perfused. No calf tenderness. No peripheral edema. PSYCHIATRIC: Appropriate mood and affect. SKIN: Warm, dry, normal turgor, no rashes or lesions noted Laboratory Results - last 24 hr 01/23/20 01/23/20 01/23/20 23:10 23:10 23:10 WBC 6.1 RBC 4.36 Hgb 13.5 Hct 40.7 MCV 93.4 MCH 30.9 MCHC 33.1 RDW 15.0 Plt Count 204 MPV 9.3 Absolute Neuts (auto) 2.7 Neutrophils % 44.0 Lymphocytes % 44.1 H Monocytes % 8.6 Eosinophils % 2.7 Basophils % 0.6 Nucleated RBC % 0 PT with INR INR PTT (Actin FS) D-Dimer Sodium 146 H Potassium 3.7 Chloride 112 H Carbon Dioxide 28 Anion Gap 5 L BUN 20.8 H Creatinine 0.7 Est GFR (CKD-EPI)AfAm 109.15 Est GFR (CKD-EPI)NonAf 94.17 Random Glucose 85 Calcium 7.8 L Phosphorus 4.0 Magnesium 2.0 Total Bilirubin < 0.1 L AST 13 L ALT 21 Alkaline Phosphatase 60 Troponin I < 0.02 B-Natriuretic Peptide 18.2 Total Protein 6.0 L Albumin 2.8 L 01/23/20 01/23/20 01/24/20 23:10 23:17 02:38 WBC RBC Hgb Hct MCV MCH MCHC RDW Plt Count MPV Absolute Neuts (auto) Neutrophils % Lymphocytes % Monocytes % Eosinophils % Basophils % Nucleated RBC % PT with INR 12.30 INR 1.04 PTT (Actin FS) 30.9 D-Dimer 1094 H Sodium Potassium Chloride Carbon Dioxide Anion Gap BUN Creatinine Est GFR (CKD-EPI)AfAm Est GFR (CKD-EPI)NonAf Random Glucose Calcium Phosphorus Magnesium Total Bilirubin AST ALT Alkaline Phosphatase Troponin I B-Natriuretic Peptide Total Protein Albumin ASSESSMENT/PLAN: 59 y.o. F from rehab at [facility] alcohol abuse, depression, GERD, asthma ( moderate persistent). arthritis admitted for acute asthma exacerbation #Acute asthma exacerbation -CXR showing no infiltrates or congestive changes as per my read -s/p solumedrol 125mg IV, duonebs x4, alb neb x1, Mag 2g in ED -prn & standing duonebs -singular, symbicort -solumedrol 60mg q6h -azithromycin -maintain O2 sats >90%; supplemental O2 if needed -pulm consulted; patient only using alb inhaler @ home, may benefit from low dose steroid or laba outpatient #Alcohol abuse -s/p valium detox -multivitamin, thiamine, folic acid -will return to rehab after clinical workup for asthma exacerbation -fall, seizure precautions #Depression -continue home does SSRI -continue to monitor #GERD -epigastric pain resolving s/p pepcid given in ED -PPI ctm #FEN -no standing fluids -trend lytes replete prn -regular diet PPX -ppi -patient is allergic to pork products; SCDs for now #Dispo med surg Visit type - Emergency Visit Emergency Visit: Yes ED Registration Date: 01/24/20 Care time: The patient presented to the Emergency Department on the above date and was hospitalized for further evaluation of their emergent condition. - New Patient This patient is new to me today: Yes Date on this admission: 01/24/20 - Critical Care Critical Care patient: No ATTENDING PHYSICIAN STATEMENT I saw and evaluated the patient. I reviewed the resident's note and discussed the case with the resident. I agree with the resident's findings and plan as documented. SUBJECTIVE: OBJECTIVE: ASSESSMENT AND PLAN:
[2020-01-24] MEDS: methylPREDNISolone NA SUCC 40 MG/1 ML VIAL IVPUSH SCH ×2 (07:01→13:52)
[2020-01-24] MEDS: ALBUTEROL SO4 2.5/IPRATROPIUM 0.5 INH SOL 3 ML VIAL.NEB. NEB SCH ×3 (10:02→20:24)
[2020-01-24] MEDS: AZITHROMYCIN IVPB 500 MG/250 ML BAG IVPB SCH ×2 (10:30→10:45)
[2020-01-24] MEDS: MULTIVITAMINS (DAILY MVI) TABLET (FP) PO SCH (10:45)
[2020-01-24] MEDS: THIAMINE HCL 100 MG TABLET (FP) PO SCH (10:45)
[2020-01-24] MEDS: FOLIC ACID 1 MG TABLET (FP) PO SCH (10:45)
--- NOTE | 2020-01-24 11:53 | EKG ---
Test Reason : Blood Pressure : / mmHG Vent. Rate : 085 BPM Atrial Rate : 085 BPM P-R Int : 156 ms QRS Dur : 082 ms QT Int : 390 ms P-R-T Axes : 068 022 042 degrees QTc Int : 464 ms NORMAL SINUS RHYTHM NORMAL ECG WHEN COMPARED WITH ECG OF 25-JUN-2019 19:20, CRITERIA FOR SEPTAL INFARCT ARE NO LONGER PRESENT Confirmed by THELMA ORTIZ MD ([id number]) on 01/24/2020 11:53:36 AM Referred By: Confirmed By:THELMA ORTIZ MD
[2020-01-24] MEDS: BUDESONIDE/FORMETEROL FUMARATE 80/4.5 mcg INHALER IH SCH ×2 (12:19→21:01)
--- NOTE | 2020-01-24 12:26 | CON.PULM ---
Consult Consult Specialty:: PULMONARY Referred by:: Dr Mauricio Reason for Consultation:: shortness of breath - History of Present Illness Chief Complaint: shortness of breath History of Present Illness: 59yo female with h/o alcohol abuse, GERD, asthma, TATY who was sent from [facility] where she was detoxed from valium for worsening shortness of breath and wheezing. No chest pain or discomfort. +cough productive of clear sputum and wheezing. No fevers, chills or sweats. Unknown sick contacts but was just at rehab. Given steroids, inhaled bronchodilators with improvement of symptoms. - History Source History Provided By: Patient, Medical Record Limitations to Obtaining History: No Limitations - Past Medical History Pulmonary: Yes: Asthma Gastrointestinal: Yes: GERD ...LMP: 11/22/01 Musculoskeletal: Yes: Other (arthritis) - Alcohol/Substance Use Hx Alcohol Use: Yes - Smoking History Smoking history: Never smoked Have you smoked in the past 12 months: No Aproximately how many cigarettes per day: 0 - Social History ADL: Support Services Occupation: unemployed History of Recent Travel: No Home Medications - Allergies Allergies/Adverse Reactions: Allergies Allergy/AdvReac Type Severity Reaction Status Date / Time chlordiazepoxide HCl Allergy Severe Swelling Verified 01/24/20 04:33 [From Librium] haloperidol [From Haldol] Allergy Severe Verified 01/24/20 04:33 lithium Allergy Severe Swelling Verified 01/24/20 04:33 Beef Containing Products Allergy Mild Vomiting Verified 01/24/20 04:33 divalproex sodium Allergy Mild Rash Verified 01/24/20 04:33 [From Depakote] pork derived (porcine) Allergy Mild Vomiting Verified 01/24/20 04:33 [Pork derived (porcine)] quetiapine fumarate Allergy Mild Rash Verified 01/24/20 04:33 [From Seroquel] risperidone Allergy Unknown Rash Verified 01/24/20 04:33 lactose AdvReac Intermediate Verified 01/24/20 04:33 - Home Medications Home Medications: Ambulatory Orders Albuterol Sulfate Inhaler - [Ventolin HFA Inhaler -] 2 inh IH Q4HPO PRN #1 inh 03/03/19 Escitalopram Oxalate [Lexapro -] 20 mg PO DAILY 01/18/20 Sertraline HCl [Zoloft -] 50 mg PO DAILY 01/18/20 Omeprazole Magnesium [Prilosec] 20 mg PO DAILY 01/21/20 Review of Systems - Review of Systems Constitutional: reports: Weakness. denies: Chills, Fever Eyes: denies: Recent Change in Vision HENT: denies: Nasal Congestion, Throat Pain Neck: denies: Stiffness, Tenderness Cardiovascular: reports: Shortness of Breath. denies: Chest Pain, Edema, Palpitations Respiratory: reports: Cough, SOB on Exertion, Wheezing. denies: Hemoptysis Gastrointestinal: denies: Abdominal Pain, Nausea, Vomiting Genitourinary: denies: Dysuria, Hematuria 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: denies: Dizziness, Headache Endocrine: denies: Unexplained Weight Loss Physical Exam Vital Sings: Vital Signs Temperature 98.5 F 01/24/20 08:30 Pulse Rate 96 H 01/24/20 08:30 Respiratory Rate 18 01/24/20 08:30 Blood Pressure 153/77 01/24/20 08:30 O2 Sat by Pulse Oximetry (%) 98 01/24/20 07:30 Constitutional: Yes: Calm Eyes: Yes: Conjunctiva Clear, EOM Intact HENT: Yes: Atraumatic, Normocephalic Neck: Yes: Supple, Trachea Midline Cardiovascular: Yes: Regular Rate and Rhythm Respiratory: Yes: Rhonchi, Wheezes ...Clubbing: No Gastrointestinal: Yes: Normal Bowel Sounds, Soft. No: Tenderness Edema: No 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: Yes: Alert, Oriented Labs: CBC, BMP 01/23/20 23:10 01/23/20 23:10 Imaging - Results Chest X-ray: Report Reviewed, Image Reviewed (no infiltrates) Problem List - Problems (1) Asthma exacerbation Code(s): J45.901 - UNSPECIFIED ASTHMA WITH (ACUTE) EXACERBATION Qualifiers: Asthma severity: unspecified severity Asthma persistence: unspecified Qualified Code(s): J45.901 - Unspecified asthma with (acute) exacerbation Assessment/Plan Acute Asthma Exacerbation h/o Alcohol Abuse Benzo Abuse GERD Obstructive Sleep Apnea - can decrease medrol to 40mg q8h - inhaled bronchodilators standing and PRN - O2 to keep Spo2 >90% - singulair, symbicort - monitor peak flow - outpt PFTs, NPSG - DVT prophylaxis Thank you for this consult Max Connor MD
[2020-01-24] MEDS ORDERED: methylPREDNISolone NA SUCC 40 MG/1 ML VIAL IVPUSH SCH (12:30)
[2020-01-24 12:45] VITALS: BMI 36.6
--- NOTE | 2020-01-24 14:08 | PN ---
Physical Exam: SUBJECTIVE: Patient seen and examined at bedside. pt states she still feels a little short of breath. OBJECTIVE: Vital Signs Period Temp Pulse Resp BP Sys/Martinez Pulse Ox Last 24 Hr 98.4 F-99.2 F 76-96 18-23 125-153/51-78 95-98 GENERAL: The patient is awake, alert, and fully oriented, in no acute distress. LUNGS: Breath sounds equal,decreased at bases, no wheezes, no accessory muscle use. HEART: Regular rate and rhythm, S1, S2 ABDOMEN: Soft, nontender, nondistended, normoactive bowel sounds, no guarding EXTREMITIES: 2+ pulses, warm, well-perfused, no edema. SKIN: Warm, dry, normal turgor, no rashes or lesions noted Laboratory Results - last 24 hr 01/23/20 01/23/20 01/23/20 23:10 23:10 23:10 WBC 6.1 RBC 4.36 Hgb 13.5 Hct 40.7 MCV 93.4 MCH 30.9 MCHC 33.1 RDW 15.0 Plt Count 204 MPV 9.3 Absolute Neuts (auto) 2.7 Neutrophils % 44.0 Lymphocytes % 44.1 H Monocytes % 8.6 Eosinophils % 2.7 Basophils % 0.6 Nucleated RBC % 0 PT with INR INR PTT (Actin FS) D-Dimer Sodium 146 H Potassium 3.7 Chloride 112 H Carbon Dioxide 28 Anion Gap 5 L BUN 20.8 H Creatinine 0.7 Est GFR (CKD-EPI)AfAm 109.15 Est GFR (CKD-EPI)NonAf 94.17 Random Glucose 85 Calcium 7.8 L Phosphorus 4.0 Magnesium 2.0 Total Bilirubin < 0.1 L AST 13 L ALT 21 Alkaline Phosphatase 60 Troponin I < 0.02 B-Natriuretic Peptide 18.2 Total Protein 6.0 L Albumin 2.8 L Current Medications Albuterol/Ipratropium (Duoneb -) 1 amp NEB RQ4H PRN PRN Reason: SHORT OF BREATH/WHEEZING Albuterol/Ipratropium (Duoneb -) 1 amp NEB RTID [facility] Last Admin: 01/24/20 13:49 Dose: 1 amp Budesonide/Formoterol Fumarate (Symbicort 80/4.5mcg -) 2 puff IH BID [facility] Last Admin: 01/24/20 12:19 Dose: 2 puff Folic Acid (Folic Acid -) 1 mg PO DAILY [facility] Last Admin: 01/24/20 10:45 Dose: 1 mg Azithromycin (Zithromax 500mg Ivpb (Pre-Docked)) 500 mg in 250 mls @ 250 mls/ hr IVPB DAILY [facility] Last Admin: 01/24/20 10:30 Dose: Not Given Montelukast Sodium (Singulair -) 10 mg PO HS [facility] Multivitamins/Minerals/Vitamin C (Tab-A-Vit -) 1 tab PO DAILY [facility] Last Admin: 01/24/20 10:45 Dose: Not Given Prednisone (Deltasone -) 40 mg PO BID [facility] Thiamine HCl (Vitamin B1 -) 100 mg PO DAILY [facility] Last Admin: 01/24/20 10:45 Dose: Not Given ASSESSMENT/PLAN: 59 yo F PMH alcohol abuse, depression, GERD, asthma (moderate persistent), arthritis presented from [facility] rehab for acute asthma exacerbation Acute asthma exacerbation - CXR : no acute pathology - c/w duonebs, ventolin - c/w prednisone 40 bid - Pulm consulted - c/w azithromycin Alcohol abuse - no acute signs of withdrawal - c/w multivitamin, thiamine, folate - plan to return to rehab Depression - continue to monitor GERD - c/w pepcid DVT ppx: SCDs Dispo: continue to monitor on med / surg . back to rehab once medically optimized Visit type - Emergency Visit Emergency Visit: No - New Patient This patient is new to me today: Yes Date on this admission: 01/24/20 - Critical Care Critical Care patient: No - Discharge Referral Referred to [facility] Med P.C.: No ATTENDING PHYSICIAN STATEMENT I saw and evaluated the patient. I reviewed the resident's note and discussed the case with the resident. I agree with the resident's findings and plan as documented. SUBJECTIVE: OBJECTIVE: ASSESSMENT AND PLAN:
[2020-01-24] MEDS: predniSONE 20 MG TABLET (UD) PO SCH ×2 (14:28→21:02)
--- NOTE | 2020-01-24 18:56 | PN ---
Teaching Attending Note Name of Resident: Paris Pollard ATTENDING PHYSICIAN STATEMENT I saw and evaluated the patient. I reviewed the resident's note and discussed the case with the resident. I agree with the resident's findings and plan as documented. SUBJECTIVE: Patient is feeling better but continues to wheez and cough.no fever or chills. OBJECTIVE: Vital Signs Temperature 99.1 F 01/24/20 14:00 Pulse Rate 106 H 01/24/20 14:00 Respiratory Rate 18 01/24/20 14:00 Blood Pressure 133/59 L 01/24/20 14:00 O2 Sat by Pulse Oximetry (%) 95 01/24/20 08:54 GENERAL: The patient is awake, alert, and fully oriented, in no acute distress. HEAD: Normal with no signs of trauma. EYES: PERRL, extraocular movements intact, sclera anicteric, conjunctiva clear. ENT: Ears normal, oropharynx clear without exudates, moist mucous membranes. NECK: Trachea midline, full range of motion, supple. LUNGS: decreased BS BL, +wheezing , no crackles, no accessory muscle use. HEART: Regular rate and rhythm, S1, S2 without murmur, rub or gallop. ABDOMEN: Soft, nontender, nondistended, normoactive bowel sounds, no guarding, no rebound, no hepatosplenomegaly, no masses. EXTREMITIES: 2+ pulses, warm, well-perfused, no edema. NEUROLOGICAL: Cranial nerves II through XII grossly intact. Normal speech, gait not observed. PSYCH: Normal mood, normal affect. SKIN: Warm, dry, normal turgor, no rashes or lesions noted CBCD WBC 6.1 K/mm3 (4.0-10.0) 01/23/20 23:10 RBC 4.36 M/mm3 (3.60-5.2) 01/23/20 23:10 Hgb 13.5 GM/dL (10.7-15.3) 01/23/20 23:10 Hct 40.7 % (32.4-45.2) 01/23/20 23:10 MCV 93.4 fl (80-96) 01/23/20 23:10 MCHC 33.1 g/dl (32.0-36.0) 01/23/20 23:10 RDW 15.0 % (11.6-15.6) 01/23/20 23:10 Plt Count 204 K/MM3 (134-434) 01/23/20 23:10 MPV 9.3 fl (7.5-11.1) 01/23/20 23:10 CMP Sodium 146 mmol/L (136-145) H 01/23/20 23:10 Potassium 3.7 mmol/L (3.5-5.1) 01/23/20 23:10 Chloride 112 mmol/L (98-107) H 01/23/20 23:10 Carbon Dioxide 28 mmol/L (21-32) 01/23/20 23:10 Anion Gap 5 MMOL/L (8-16) L 01/23/20 23:10 BUN 20.8 mg/dL (7-18) H 01/23/20 23:10 Creatinine 0.7 mg/dL (0.55-1.3) 01/23/20 23:10 Random Glucose 85 mg/dL (74-106) 01/23/20 23:10 Calcium 7.8 mg/dL (8.5-10.1) L 01/23/20 23:10 Total Bilirubin < 0.1 mg/dL (0.2-1) L 01/23/20 23:10 AST 13 U/L (15-37) L 01/23/20 23:10 ALT 21 U/L (13-61) 01/23/20 23:10 Alkaline Phosphatase 60 U/L (45-117) 01/23/20 23:10 Total Protein 6.0 g/dl (6.4-8.2) L 01/23/20 23:10 Albumin 2.8 g/dl (3.4-5.0) L 01/23/20 23:10 CARDIAC ENZYMES Troponin I < 0.02 ng/ml (0.00-0.05) 01/23/20 23:10 Current Medications Generic Name Dose Route Start Last Admin Trade Name Freq PRN Reason Stop Dose Admin Albuterol/Ipratropium 1 amp 01/24/20 05:59 Duoneb - NEB RQ4H PRN SHORT OF BREATH/WHEEZING Albuterol/Ipratropium 1 amp 01/24/20 08:00 01/24/20 13:49 Duoneb - NEB 1 amp RTID ADAM Administration Budesonide/Formoterol Fumarate 2 puff 01/24/20 10:00 01/24/20 12:19 Symbicort 80/4.5mcg - IH 2 puff BID ADAM Administration Famotidine 20 mg 01/25/20 10:00 Pepcid - PO DAILY ADAM Folic Acid 1 mg 01/24/20 10:00 01/24/20 10:45 Folic Acid - PO 1 mg DAILY ADAM Administration Azithromycin 500 mg in 250 mls @ 250 mls/hr 01/24/20 10:00 01/24/20 10:30 Zithromax 500mg Ivpb (Pre-Docked) IVPB Not Given DAILY [facility] Montelukast Sodium 10 mg 01/24/20 22:00 Singulair - PO [facility] Multivitamins/Minerals/Vitamin C 1 tab 01/24/20 10:00 01/24/20 10:45 Tab-A-Vit - PO Not Given DAILY [facility] Prednisone 40 mg 01/24/20 13:15 01/24/20 14:28 Deltasone - PO 40 mg BID ADAM Administration Thiamine HCl 100 mg 01/24/20 10:00 01/24/20 10:45 Vitamin B1 - PO Not Given DAILY [facility] Home Medications Medication Instructions Recorded Albuterol Sulfate Inhaler - 2 inh IH Q4HPO PRN #1 inh 03/03/19 [Ventolin HFA Inhaler -] Escitalopram Oxalate [Lexapro -] 20 mg PO DAILY 01/18/20 Sertraline HCl [Zoloft -] 50 mg PO DAILY 01/18/20 Omeprazole Magnesium [Prilosec] 20 mg PO DAILY 01/21/20 Fluticasone/Salmeterol [Advair 1 inh IH BID 01/24/20 250-50 Diskus] ASSESSMENT AND PLAN: Patient is 59 yo F with PMHx of alcohol abuse, depression, GERD, asthma, arthritis presented from [facility] rehab for acute asthma exacerbation #Acute asthma exacerbation continue current care, on prednisone, zithromax IV, will get influenza A/B swab #Alcohol abuse: no acute signs of withdrawal, on multivitamin, thiamine, folate #Depression continue home meds #GERD continue pepcid DVT ppx: SCDs GI px: pepcid since on steroid
[2020-01-24] MEDS ORDERED: MONTELUKAST NA 10 MG TABLET PO SCH (22:00)
[2020-01-24 22:29] LABS: URINE APPEARANCE Clear; URINE BILIRUBIN Negative (NEGATIVE); URINE COLOR Yellow; URINE GLUCOSE (UA) Negative (NEGATIVE); URINE KETONE 1+ (NEGATIVE); URINE LEUK ESTERASE Negative (NEGATIVE); URINE NITRITE Negative (NEGATIVE); URINE PROTEIN Trace (NEGATIVE); URINE UROBILINOGEN 0.2 mg/dL (0.2-1.0)
[2020-01-25] MEDS: ALBUTEROL SO4 2.5/IPRATROPIUM 0.5 INH SOL 3 ML VIAL.NEB. NEB SCH ×2 (07:58→14:55)
[2020-01-25 08:26] LABS: BASO % 0.3 % (0-2.0); HEMATOCRIT 38.5 % (32.4-45.2); MCH 31.1 pg (25.7-33.7); MCHC 33.8 g/dl (32.0-36.0); MEAN PLT VOLUME 9.3 fl (7.5-11.1); MONO % 2.3 % (3.8-10.2); NEUT % 85.4 % (42.8-82.8); PLATELET COUNT 207 K/MM3 (134-434); RBC 4.19 M/mm3 (3.60-5.2); RDW 15.3 % (11.6-15.6); WHITE BLOOD COUNT 8.1 K/mm3 (4.0-10.0)
[2020-01-25 08:27] LABS: ALBUMIN 3.2 g/dl (3.4-5.0); BILIRUBIN,TOTAL 0.7 mg/dL (0.2-1); BLOOD UREA NITROGEN 15.8 mg/dL (7-18); CALCIUM 8.5 mg/dL (8.5-10.1); CREATININE 0.7 mg/dL (0.55-1.3); MAGNESIUM 2.2 mg/dL (1.8-2.4); PHOSPHOROUS 3.7 mg/dL (2.5-4.9); POTASSIUM 4.4 mmol/L (3.5-5.1); TOT PROT 7.3 g/dl (6.4-8.2)
[2020-01-25] MEDS ORDERED: POLYETHYLENE GLYCOL 3350 119 GM BTL PO ONE (09:22)
--- NOTE | 2020-01-25 09:26 | PN ---
Teaching Attending Note Name of Resident: Paris Pollard ATTENDING PHYSICIAN STATEMENT I saw and evaluated the patient. I reviewed the resident's note and discussed the case with the resident. I agree with the resident's findings and plan as documented. SUBJECTIVE: Patient is feeling better wants to go home. refusing IV steroid and zithromax IV OBJECTIVE: Vital Signs Temperature 98.2 F 01/25/20 06:00 Pulse Rate 92 H 01/25/20 06:00 Respiratory Rate 18 01/25/20 06:00 Blood Pressure 134/62 01/25/20 06:00 O2 Sat by Pulse Oximetry (%) 95 01/24/20 08:54 GENERAL: The patient is awake, alert, and fully oriented, in no acute distress. HEAD: Normal with no signs of trauma. EYES: PERRL, extraocular movements intact, sclera anicteric, conjunctiva clear. ENT: Ears normal, oropharynx clear without exudates, moist mucous membranes. NECK: Trachea midline, full range of motion, supple. LUNGS: decreased BS BL, +wheezing , no crackles, no accessory muscle use. HEART: Regular rate and rhythm, S1, S2 without murmur, rub or gallop. ABDOMEN: Soft, nontender, nondistended, normoactive bowel sounds, no guarding, no rebound, no hepatosplenomegaly, no masses. EXTREMITIES: 2+ pulses, warm, well-perfused, no edema. NEUROLOGICAL: Cranial nerves II through XII grossly intact. Normal speech, gait not observed. PSYCH: Normal mood, normal affect. SKIN: Warm, dry, normal turgor, no rashes or lesions noted CBCD WBC 8.1 K/mm3 (4.0-10.0) 01/25/20 07:16 RBC 4.19 M/mm3 (3.60-5.2) 01/25/20 07:16 Hgb 13.0 GM/dL (10.7-15.3) 01/25/20 07:16 Hct 38.5 % (32.4-45.2) 01/25/20 07:16 MCV 92.0 fl (80-96) 01/25/20 07:16 MCHC 33.8 g/dl (32.0-36.0) 01/25/20 07:16 RDW 15.3 % (11.6-15.6) 01/25/20 07:16 Plt Count 207 K/MM3 (134-434) 01/25/20 07:16 MPV 9.3 fl (7.5-11.1) 01/25/20 07:16 CMP Sodium 143 mmol/L (136-145) 01/25/20 07:16 Potassium 4.4 mmol/L (3.5-5.1) 01/25/20 07:16 Chloride 110 mmol/L (98-107) H 01/25/20 07:16 Carbon Dioxide 28 mmol/L (21-32) 01/25/20 07:16 Anion Gap 5 MMOL/L (8-16) L 01/25/20 07:16 BUN 15.8 mg/dL (7-18) 01/25/20 07:16 Creatinine 0.7 mg/dL (0.55-1.3) 01/25/20 07:16 Random Glucose 115 mg/dL (74-106) H 01/25/20 07:16 Calcium 8.5 mg/dL (8.5-10.1) 01/25/20 07:16 Total Bilirubin 0.7 mg/dL (0.2-1) 01/25/20 07:16 AST 15 U/L (15-37) 01/25/20 07:16 ALT 26 U/L (13-61) 01/25/20 07:16 Alkaline Phosphatase 70 U/L (45-117) 01/25/20 07:16 Total Protein 7.3 g/dl (6.4-8.2) 01/25/20 07:16 Albumin 3.2 g/dl (3.4-5.0) L 01/25/20 07:16 CARDIAC ENZYMES Troponin I < 0.02 ng/ml (0.00-0.05) 01/23/20 23:10 Current Medications Generic Name Dose Route Start Last Admin Trade Name Freq PRN Reason Stop Dose Admin Albuterol/Ipratropium 1 amp 01/24/20 05:59 Duoneb - NEB RQ4H PRN SHORT OF BREATH/WHEEZING Albuterol/Ipratropium 1 amp 01/24/20 08:00 01/24/20 20:24 Duoneb - NEB 1 amp RTID ADAM Administration Budesonide/Formoterol Fumarate 2 puff 01/24/20 10:00 01/24/20 21:01 Symbicort 80/4.5mcg - IH 2 puff BID ADAM Administration Famotidine 20 mg 01/25/20 10:00 Pepcid - PO DAILY ADAM Folic Acid 1 mg 01/24/20 10:00 01/24/20 10:45 Folic Acid - PO 1 mg DAILY ADAM Administration Azithromycin 500 mg in 250 mls @ 250 mls/hr 01/24/20 10:00 01/24/20 10:30 Zithromax 500mg Ivpb (Pre-Docked) IVPB Not Given DAILY ADAM Montelukast Sodium 10 mg 01/24/20 22:00 01/24/20 21:04 Singulair - PO 10 mg HS ADAM Administration Multivitamins/Minerals/Vitamin C 1 tab 01/24/20 10:00 01/24/20 10:45 Tab-A-Vit - PO Not Given DAILY ADAM Polyethylene Glycol 17 gm 01/25/20 09:22 Miralax (For Daily Use) - PO 01/25/20 09:23 ONCE ONE Prednisone 40 mg 01/24/20 13:15 01/24/20 21:02 Deltasone - PO 40 mg BID ADAM Administration Thiamine HCl 100 mg 01/24/20 10:00 01/24/20 10:45 Vitamin B1 - PO Not Given DAILY [facility] Home Medications Medication Instructions Recorded Albuterol Sulfate Inhaler - 2 inh IH Q4HPO PRN #1 inh 03/03/19 [Ventolin HFA Inhaler -] Escitalopram Oxalate [Lexapro -] 20 mg PO DAILY 01/18/20 Sertraline HCl [Zoloft -] 50 mg PO DAILY 01/18/20 Omeprazole Magnesium [Prilosec] 20 mg PO DAILY 01/21/20 Fluticasone/Salmeterol [Advair 1 inh IH BID 01/24/20 250-50 Diskus] ASSESSMENT AND PLAN: Patient is 59 yo F with PMHx of alcohol abuse, depression, GERD, asthma, arthritis presented from [facility] for acute asthma exacerbation #Acute asthma exacerbation , patient is refusing IV therapy solumedrol and zithromax, will dc the patient home on oral steroid and zpack , continue prednisone tapered dose, zithromax po. #Alcohol abuse: no acute signs of withdrawal, on multivitamin, thiamine, folate #Depression continue home meds #GERD continue pepcid DVT ppx: SCDs
[2020-01-25] MEDS: predniSONE 20 MG TABLET (UD) PO SCH (09:36)
[2020-01-25] MEDS: FOLIC ACID 1 MG TABLET (FP) PO SCH (09:36)
[2020-01-25] MEDS: MULTIVITAMINS (DAILY MVI) TABLET (FP) PO SCH (09:36)
[2020-01-25] MEDS: THIAMINE HCL 100 MG TABLET (FP) PO SCH (09:36)
[2020-01-25] MEDS: BUDESONIDE/FORMETEROL FUMARATE 80/4.5 mcg INHALER IH SCH (09:36)
[2020-01-25] MEDS: AZITHROMYCIN IVPB 500 MG/250 ML BAG IVPB SCH (09:37)
[2020-01-25] MEDS ORDERED: FAMOTIDINE 20 MG TABLET PO SCH (10:00)
[2020-01-25] MEDS ORDERED: AZITHROMYCIN 250 MG TABLET PO ONE (11:05)
--- NOTE | 2020-01-25 13:44 | PN ---
Progress Note, Physician History of Present Illness: pulmonary alert,still c/o sob - Current Medication List Current Medications: Active Medications Albuterol/Ipratropium (Duoneb -) 1 amp NEB RQ4H PRN PRN Reason: SHORT OF BREATH/WHEEZING Albuterol/Ipratropium (Duoneb -) 1 amp NEB RTID [facility] Last Admin: 01/25/20 07:58 Dose: 1 amp Azithromycin (Zithromax -) 250 mg PO DAILY [facility] Stop: 01/29/20 10:01 Budesonide/Formoterol Fumarate (Symbicort 80/4.5mcg -) 2 puff IH BID [facility] Last Admin: 01/25/20 09:36 Dose: 2 puff Famotidine (Pepcid -) 20 mg PO DAILY [facility] Last Admin: 01/25/20 09:36 Dose: 20 mg Folic Acid (Folic Acid -) 1 mg PO DAILY [facility] Last Admin: 01/25/20 09:36 Dose: 1 mg Montelukast Sodium (Singulair -) 10 mg PO HS [facility] Last Admin: 01/24/20 21:04 Dose: 10 mg Multivitamins/Minerals/Vitamin C (Tab-A-Vit -) 1 tab PO DAILY [facility] Last Admin: 01/25/20 09:36 Dose: 1 tab Prednisone (Deltasone -) 40 mg PO BID [facility] Last Admin: 01/25/20 09:36 Dose: 40 mg Thiamine HCl (Vitamin B1 -) 100 mg PO DAILY [facility] Last Admin: 01/25/20 09:36 Dose: 100 mg - Objective Vital Signs: Vital Signs Temperature 97.8 F 01/25/20 09:00 Pulse Rate 109 H 01/25/20 09:00 Respiratory Rate 18 01/25/20 09:00 Blood Pressure 139/76 01/25/20 09:00 O2 Sat by Pulse Oximetry (%) 95 01/25/20 09:00 Constitutional: Yes: Well Nourished, Calm Eyes: Yes: WNL HENT: Yes: WNL Neck: Yes: WNL Cardiovascular: Yes: Regular Rate and Rhythm, S1, S2 Respiratory: Yes: Wheezes (bilateral wheezes) Gastrointestinal: Yes: Normal Bowel Sounds, Soft Extremities: Yes: WNL Edema: No Labs: CBC, BMP 01/25/20 07:16 01/25/20 07:16 INR, PTT INR 1.04 (0.83-1.09) 01/23/20 23:10 Problem List - Problems (1) GERD (gastroesophageal reflux disease) Code(s): K21.9 - GASTRO-ESOPHAGEAL REFLUX DISEASE WITHOUT ESOPHAGITIS Qualifiers: Esophagitis presence: esophagitis presence not specified Qualified Code(s) : K21.9 - Gastro-esophageal reflux disease without esophagitis (2) Alcohol dependence with uncomplicated withdrawal Code(s): F10.230 - ALCOHOL DEPENDENCE WITH WITHDRAWAL, UNCOMPLICATED Assessment/Plan Problem List - Problems (1) Asthma exacerbation Code(s): J45.901 - UNSPECIFIED ASTHMA WITH (ACUTE) EXACERBATION Qualifiers: Asthma severity: unspecified severity Asthma persistence: unspecified Qualified Code(s): J45.901 - Unspecified asthma with (acute) exacerbation Assessment/Plan Acute Asthma Exacerbation h/o Alcohol Abuse Benzo Abuse GERD Obstructive Sleep Apnea - prednisone pt refusing iv access - inhaled bronchodilators standing and PRN - O2 to keep Spo2 >90% - singulair, symbicort - monitor peak flow - outpt PFTs, NPSG - DVT prophylaxis DR BECKMAN
[2020-01-25 15:18] VITALS: BP 122/54; PULSE 90; TEMP 98.5
--- NOTE | 2020-01-25 15:32 | DS ---
Physical Exam: SUBJECTIVE: Patient seen and examined at bedside. pt states that breathing improved. pt is refusing IV medication OBJECTIVE: Vital Signs Period Temp Pulse Resp BP Sys/Martinez Pulse Ox Last 24 Hr 97.8 F-99.0 F 90-109 18-18 122-154/54-82 95 PHYSICAL EXAM GENERAL: The patient is awake, alert, and fully oriented, in no acute distress. LUNGS: Breath sounds equal,decreased at bases, no wheezes, no accessory muscle use. HEART: Regular rate and rhythm, S1, S2 ABDOMEN: Soft, nontender, nondistended, normoactive bowel sounds, no guarding EXTREMITIES: 2+ pulses, warm, well-perfused, no edema. SKIN: Warm, dry, normal turgor, no rashes or lesions noted LABS Laboratory Results - last 24 hr 01/24/20 01/24/20 01/25/20 17:00 21:50 07:16 WBC 8.1 RBC 4.19 Hgb 13.0 Hct 38.5 MCV 92.0 MCH 31.1 MCHC 33.8 RDW 15.3 Plt Count 207 MPV 9.3 Absolute Neuts (auto) 7.0 Neutrophils % 85.4 H D Lymphocytes % 12.0 D Monocytes % 2.3 L Eosinophils % 0.0 D Basophils % 0.3 Nucleated RBC % 0 Sodium Potassium Chloride Carbon Dioxide Anion Gap BUN Creatinine Est GFR (CKD-EPI)AfAm Est GFR (CKD-EPI)NonAf Random Glucose Calcium Phosphorus Magnesium Total Bilirubin AST ALT Alkaline Phosphatase Total Protein Albumin Urine Color Yellow Urine Appearance Clear Urine pH 7.0 D Ur Specific [place] 1.020 Urine Protein Trace Urine Glucose (UA) Negative Urine Ketones 1+ H Urine Blood Negative Urine Nitrite Negative Urine Bilirubin Negative Urine Urobilinogen 0.2 Ur Leukocyte Esterase Negative Urine Crystals (Auto) Influenza A (Rapid) Negative Influenza B (Rapid) Negative 01/25/20 07:16 WBC RBC Hgb Hct MCV MCH MCHC RDW Plt Count MPV Absolute Neuts (auto) Neutrophils % Lymphocytes % Monocytes % Eosinophils % Basophils % Nucleated RBC % Sodium 143 Potassium 4.4 Chloride 110 H Carbon Dioxide 28 Anion Gap 5 L BUN 15.8 Creatinine 0.7 Est GFR (CKD-EPI)AfAm 109.15 Est GFR (CKD-EPI)NonAf 94.17 Random Glucose 115 H Calcium 8.5 Phosphorus 3.7 Magnesium 2.2 Total Bilirubin 0.7 AST 15 ALT 26 Alkaline Phosphatase 70 Total Protein 7.3 Albumin 3.2 L Urine Color Urine Appearance Urine pH Ur Specific [place] Urine Protein Urine Glucose (UA) Urine Ketones Urine Blood Urine Nitrite Urine Bilirubin Urine Urobilinogen Ur Leukocyte Esterase Urine Crystals (Auto) Influenza A (Rapid) Influenza B (Rapid) HOSPITAL COURSE: Date of Admission:01/24/20 59 yo F PMH alcohol abuse, depression, GERD, asthma (moderate persistent), arth ritis presented from [facility] for acute asthma exacerbation. cxray shows no acute pathology. pt was on duonebs and ventolin. pt refused all IV medications . pt was given prednisone 40 bid . pt was started on PO azithromycin. pt was monitored for signs of withdrawal and started on vitamins, folate, thiamine. Pt was given pepcid for GERD. Date of Discharge: 01/25/20 Minutes to complete discharge: 36 Discharge Summary Problems reviewed: Yes Reason For Visit: EXACERBATION OF ASTHMA Current Active Problems Asthma exacerbation (Acute) Abnormal finding on EKG (Chronic) Alcohol-induced mood disorder (Chronic) Arthritis (Chronic) Asthma (Chronic) Depression (Chronic) GERD (gastroesophageal reflux disease) (Chronic) History of asthma (Chronic) History of depression (Chronic) Hypertension (Chronic) Major depressive disorder, recurrent (Chronic) Obesity (Chronic) Osteoarthritis (Chronic) Condition: Stable - Instructions Diet, Activity, Other Instructions: You came into the hospital for shortness of breath. You were admitted for an asthma exacerbation. You were treated with nebulizer and with steroids. You were also evaluated by a Home Lending Officer. You should consider getting Pulmonary Function Testing and a sleep screen. Medications: We are starting you on Azithromycin. Please take 250 mg of Azithromycin daily for 4 days. your first dose starts tomorrow. We started you on prednisone. You will be taking Prednisone as follows: Day 1,2,3: Prednisone 40 mg daily( -01/29/2020) Day 4,5,6: Prednisone 30 mg daily (01/30/2020-02/01/2020) Day 6,8,9: Prednisone 20 mg daily (02/02/2020-02/04/2020) Day 10,11,12: Prednisone 10 mg daily( 02/05/2020-02/07/2020) Please continue to take your home medications as prescribed. Please continue to use your inhalers as prescribed. Please follow up with your primary care physician in 1 week to monitor the improvement of your symptoms. Please follow up with your outreach manager, Dr. Connor, in 1 week to monitor your asthma and for the PFT and Sleep screening If you have any new, worsening, or concerning symptoms please return to the ED or call 911. Referrals: Max Connor MD, MD [Staff Physician] - 1 Week Disposition: HOME - Home Medications Comprehensive Discharge Medication List: Ambulatory Orders Albuterol Sulfate Inhaler - [Ventolin HFA Inhaler -] 2 inh IH Q4HPO PRN #1 inh 03/03/19 Omeprazole Magnesium [Prilosec] 20 mg PO DAILY 01/21/20 Albuterol 2.5/Ipratropium 0.5 [Duoneb -] 1 amp NEB RTID amp 01/25/20 Azithromycin 250 mg PO DAILY #4 tablet 01/25/20 Azithromycin [Zithromax 250mg Tablets -] 250 mg PO DAILY 4 Days #4 tablet 01/25/20 Budesonide/Formeterol Fumarate [SYMBICORT 80/4.5mcg -] 2 puff IH BID inhaler 01/25/20 Folic Acid - 1 mg PO DAILY tablet 01/25/20 Multivitamins [Multivit ([facility] Formulary)] 1 tab PO DAILY tab 01/25/20 Prednisone See Taper PO DAILY #30 tablet 01/25/20 Thiamine HCl [Vitamin B1 -] 100 mg PO DAILY tablet 01/25/20 This patient is new to me today: No Emergency Visit: No Critical Care patient: No - Discharge Referral Referred to [facility] Med [facility].C[facility] No ATTENDING PHYSICIAN STATEMENT I saw and evaluated the patient. I reviewed the resident's note and discussed the case with the resident. I agree with the resident's findings and plan as documented. SUBJECTIVE: OBJECTIVE: ASSESSMENT AND PLAN:
[2020-01-26] MEDS ORDERED: AZITHROMYCIN 250 MG TABLET PO SCH (10:00)
== END 2020-01-25 16:40 | disposition home or self-care (01) | DRG 202 ==
LOC: JER 21:50 → JERBED 01-24 02:54 → J5S 01-24 08:30
PROVIDERS: ADMIT Internal Medicine; ATTEND Internal Medicine
DX: J45.901 Unspecified asthma with (acute) exacerbation (principal); E87.0 Hyperosmolality and hypernatremia; E46 Unspecified protein-calorie malnutrition; J45.41 Moderate persistent asthma with (acute) exacerbation; E88.09 Other disorders of plasma-protein metabolism, not elsewhere classified; Z72.0 Tobacco use; F10.10 Alcohol abuse, uncomplicated; F19.10 Other psychoactive substance abuse, uncomplicated; G47.33 Obstructive sleep apnea (adult) (pediatric); K21.9 Gastro-esophageal reflux disease without esophagitis; F32.9 Major depressive disorder, single episode, unspecified; R69 Illness, unspecified; E66.01 Morbid (severe) obesity due to excess calories; Z68.36 Body mass index [BMI] 36.0-36.9, adult
CPT/HCPCS: 36415; 71046-TC-FY; 80048; 80053; 81003; 83735; 83880; 84100; 84484; 85025; 85379; 85610; 85730; 87804; 93005; 93010; 94150; 94640; 97116-GP; 97161-GP; 99285-25; J7030

== ENCOUNTER 2020-10-20 14:23 | Inpatient (IN) | payer OTHER ==
[2020-10-20 16:22] VITALS: BMI 36.1
[2020-10-20] MEDS ORDERED: chlordiazePOXIDE HCL 25 MG CAPSULE PO ONE (17:34)
[2020-10-20] MEDS ORDERED: chlordiazePOXIDE HCL 25 MG CAPSULE PO PRN (17:34)
[2020-10-20] MEDS ORDERED: diazePAM 5 MG TABLET PO PRN (18:00)
[2020-10-20] MEDS ORDERED: ALBUTEROL SO4 HFA INHALER IH PRN (18:05)
[2020-10-20] MEDS ORDERED: METHOCARBAMOL 500 MG TABLET PO PRN (18:07)
[2020-10-20] MEDS ORDERED: ACETAMINOPHEN 325 MG TABLET (FP) PO PRN (18:07)
[2020-10-20] MEDS ORDERED: BISMUTH SUBSALICYLATE 524 MG/30 ML UD PO PRN (18:07)
[2020-10-20] MEDS ORDERED: MAGNESIUM HYDROX 2400MG/30ML ORAL SUSPENSION 30 ML CUP PO PRN (18:07)
[2020-10-20] MEDS ORDERED: MENTHOL/PHENOL 1 EACH UD MM PRN (18:07)
[2020-10-20] MEDS ORDERED: MAG HYDROX/AL HYDROX/SIMETH 30 ML UNIT-DOSE CUP PO PRN (18:07)
[2020-10-20] MEDS ORDERED: NICOTINE POLACRILEX 2 MG GUM BUC PRN (18:07)
[2020-10-20] MEDS ORDERED: IBUPROFEN 400 MG TABLET (FP) PO PRN ×2 (18:07)
[2020-10-20] MEDS ORDERED: MAGNESIUM CITRATE 300 ML BOTTLE PO PRN (18:07)
[2020-10-20] MEDS ORDERED: ONDANSETRON *ODT* 4 MG TABLET SL PRN (18:07)
[2020-10-20] MEDS: PETROLATUM, WHITE 30 GM TUBE TP SCH (18:32)
[2020-10-20] MEDS: MELATONIN 5 MG TABLETS PO SCH (22:33)
[2020-10-20] MEDS: THIAMINE HCL 100 MG TABLET (FP) PO SCH (22:33)
[2020-10-20] MEDS: diazePAM 5 MG TABLET PO SCH (22:36)
[2020-10-20] MEDS: BUDESONIDE/FORMETEROL FUMARATE 80/4.5 mcg INHALER IH SCH (22:36)
[2020-10-20] MEDS ORDERED: chlordiazePOXIDE HCL 25 MG CAPSULE PO SCH (23:00)
[2020-10-21] MEDS: diazePAM 5 MG TABLET PO SCH ×4 (05:54→22:27)
[2020-10-21] MEDS: PRENATAL VITAMINS W/ FOLIC ACID TABLET (FP) PO SCH (10:17)
[2020-10-21] MEDS: PETROLATUM, WHITE 30 GM TUBE TP SCH (10:17)
[2020-10-21] MEDS: PANTOPRAZOLE 40 MG TABLET PO SCH (10:17)
[2020-10-21] MEDS: BUDESONIDE/FORMETEROL FUMARATE 80/4.5 mcg INHALER IH SCH ×2 (10:17→22:27)
[2020-10-21 10:18] LABS: POTASSIUM 3.9 mmol/L (3.5-5.1)
[2020-10-21] MEDS: ACETAMINOPHEN 325 MG TABLET (FP) PO PRN (10:18)
[2020-10-21 10:19] LABS: HEMATOCRIT 38.2 % (32.4-45.2); HEMOGLOBIN 12.6 GM/dL (10.7-15.3); MCH 30.7 pg (25.7-33.7); MCHC 33.1 g/dl (32.0-36.0); MEAN CELL VOLUME 92.8 fl (80-96); MEAN PLT VOLUME 9.3 fl (7.5-11.1); PLATELET COUNT 209 K/MM3 (134-434); RBC 4.11 M/mm3 (3.60-5.2); RDW 15.8 % (11.6-15.6); WHITE BLOOD COUNT 3.6 K/mm3 (4.0-10.0)
[2020-10-21 10:20] LABS: ALBUMIN 3.6 g/dl (3.4-5.0)
[2020-10-21 10:24] LABS: CREATININE 0.9 mg/dL (0.55-1.3)
[2020-10-21 10:25] LABS: BILIRUBIN,TOTAL 0.7 mg/dL (0.2-1); TOT PROT 7.3 g/dl (6.4-8.2)
[2020-10-21 11:17] LABS: HIV INTERPRETATION NEGATIVE (NEGATIVE)
[2020-10-21] MEDS ORDERED: DICYCLOMINE HCL 10 MG CAPSULE PO ONE (11:17)
[2020-10-21] MEDS: THIAMINE HCL 100 MG TABLET (FP) PO SCH (22:27)
[2020-10-21] MEDS: MELATONIN 5 MG TABLETS PO SCH (22:27)
[2020-10-22] MEDS ORDERED: chlordiazePOXIDE HCL 25 MG CAPSULE PO SCH (05:00)
[2020-10-22] MEDS: diazePAM 5 MG TABLET PO SCH ×3 (05:42→22:34)
[2020-10-22] MEDS: PANTOPRAZOLE 40 MG TABLET PO SCH (09:02)
[2020-10-22] MEDS: BUDESONIDE/FORMETEROL FUMARATE 80/4.5 mcg INHALER IH SCH ×2 (09:02→22:35)
[2020-10-22] MEDS: PRENATAL VITAMINS W/ FOLIC ACID TABLET (FP) PO SCH (09:03)
[2020-10-22] MEDS: PETROLATUM, WHITE 30 GM TUBE TP SCH (09:03)
[2020-10-22] MEDS: ESCITALOPRAM OXALATE 10 MG TABLET PO SCH (09:08)
[2020-10-22 10:45] LABS: PH,URINE 5.5 (5.0-8.0); URINE APPEARANCE CLEAR; URINE BILIRUBIN NEGATIVE (NEGATIVE); URINE COLOR YELLOW; URINE GLUCOSE (UA) NEGATIVE (NEGATIVE); URINE KETONE TRACE (NEGATIVE); URINE LEUK ESTERASE NEGATIVE (NEGATIVE); URINE NITRITE NEGATIVE (NEGATIVE); URINE PROTEIN NEGATIVE (NEGATIVE)
[2020-10-22] MEDS ORDERED: MAGNESIUM CITRATE 300 ML BOTTLE PO ONE (14:45)
[2020-10-22] MEDS: MELATONIN 5 MG TABLETS PO SCH (22:34)
[2020-10-22] MEDS: THIAMINE HCL 100 MG TABLET (FP) PO SCH (22:34)
[2020-10-23] MEDS ORDERED: chlordiazePOXIDE HCL 10 MG CAPSULE PO PRN
[2020-10-23] MEDS ORDERED: chlordiazePOXIDE HCL 10 MG CAPSULE PO SCH (05:00)
[2020-10-23] MEDS: diazePAM 5 MG TABLET PO SCH ×3 (05:56→22:30)
[2020-10-23] MEDS ORDERED: MASKS NR ONE (10:39)
[2020-10-23] MEDS: PETROLATUM, WHITE 30 GM TUBE TP SCH (10:40)
[2020-10-23] MEDS: PRENATAL VITAMINS W/ FOLIC ACID TABLET (FP) PO SCH (10:40)
[2020-10-23] MEDS: ESCITALOPRAM OXALATE 10 MG TABLET PO SCH (10:41)
[2020-10-23] MEDS: BUDESONIDE/FORMETEROL FUMARATE 80/4.5 mcg INHALER IH SCH ×2 (10:41→22:30)
[2020-10-23] MEDS: PANTOPRAZOLE 40 MG TABLET PO SCH (10:41)
[2020-10-23] MEDS: ACETAMINOPHEN 325 MG TABLET (FP) PO PRN (10:42)
[2020-10-23] MEDS: THIAMINE HCL 100 MG TABLET (FP) PO SCH (22:33)
[2020-10-23] MEDS: MELATONIN 5 MG TABLETS PO SCH (22:33)
[2020-10-24] MEDS ORDERED: chlordiazePOXIDE HCL 10 MG CAPSULE PO SCH (05:00)
[2020-10-24] MEDS: diazePAM 5 MG TABLET PO SCH ×2 (05:59→18:03)
[2020-10-24] MEDS: PANTOPRAZOLE 40 MG TABLET PO SCH (10:10)
[2020-10-24] MEDS: ESCITALOPRAM OXALATE 10 MG TABLET PO SCH (10:10)
[2020-10-24] MEDS: PRENATAL VITAMINS W/ FOLIC ACID TABLET (FP) PO SCH (10:10)
[2020-10-24] MEDS: BUDESONIDE/FORMETEROL FUMARATE 80/4.5 mcg INHALER IH SCH ×2 (10:12→22:45)
[2020-10-24] MEDS: PETROLATUM, WHITE 30 GM TUBE TP SCH (10:33)
[2020-10-24] MEDS: MELATONIN 5 MG TABLETS PO SCH (22:45)
[2020-10-24] MEDS: THIAMINE HCL 100 MG TABLET (FP) PO SCH (22:45)
[2020-10-25] MEDS ORDERED: chlordiazePOXIDE HCL 10 MG CAPSULE PO ONE (05:00)
[2020-10-25] MEDS ORDERED: diazePAM 5 MG TABLET PO ONE (06:00)
[2020-10-25 09:02] VITALS: BP 125/79; PULSE 95; TEMP 97.3
[2020-10-25] MEDS: ESCITALOPRAM OXALATE 10 MG TABLET PO SCH (09:30)
[2020-10-25] MEDS: PANTOPRAZOLE 40 MG TABLET PO SCH (09:30)
[2020-10-25] MEDS: PRENATAL VITAMINS W/ FOLIC ACID TABLET (FP) PO SCH (09:30)
[2020-10-25] MEDS: BUDESONIDE/FORMETEROL FUMARATE 80/4.5 mcg INHALER IH SCH (09:32)
[2020-10-25] MEDS: PETROLATUM, WHITE 30 GM TUBE TP SCH (09:32)
== END 2020-10-25 09:43 | disposition home or self-care (01) | DRG 897 ==
LOC: YASAS 14:23 → Y3N 17:40
PROVIDERS: ADMIT Allergy & Immunology; ATTEND Allergy & Immunology
PROC: HZ2ZZZZ Detoxification Services for Substance Abuse Treatment (ICD-10-PCS; principal; 2020-10-20)
DX: F10.230 Alcohol dependence with withdrawal, uncomplicated (principal); F10.24 Alcohol dependence with alcohol-induced mood disorder; F32.9 Major depressive disorder, single episode, unspecified; I10 Essential (primary) hypertension; K21.9 Gastro-esophageal reflux disease without esophagitis; J45.909 Unspecified asthma, uncomplicated; E78.5 Hyperlipidemia, unspecified; M17.0 Bilateral primary osteoarthritis of knee; G47.33 Obstructive sleep apnea (adult) (pediatric); Z87.11 Personal history of peptic ulcer disease; E66.9 Obesity, unspecified; Z68.36 Body mass index [BMI] 36.0-36.9, adult; Z91.5 Personal history of self-harm; Z88.8 Allergy status to other drugs, medicaments and biological substances; Z91.013 Allergy to seafood; Z91.011 Allergy to milk products
CPT/HCPCS: 36415; 80053; 81003; 85027; 86780; 87389; C9803; U0003

== ENCOUNTER 2022-01-12 11:32 | Inpatient (IN) | payer OTHER ==
[2022-01-12] MEDS ORDERED: ACETAMINOPHEN 325 MG TABLET (FP) PO PRN (11:53)
[2022-01-12] MEDS ORDERED: ONDANSETRON *ODT* 4 MG TABLET SL PRN (11:53)
[2022-01-12] MEDS ORDERED: LOPERAMIDE HCL 2 MG CAPSULE PO PRN (11:53)
[2022-01-12] MEDS ORDERED: IBUPROFEN 400 MG TABLET (FP) PO PRN (11:53)
[2022-01-12] MEDS ORDERED: MAGNESIUM HYDROX 2400MG/30ML ORAL SUSPENSION 30 ML CUP PO PRN (11:53)
[2022-01-12] MEDS ORDERED: BISMUTH SUBSALICYLATE 524 MG/30 ML PO PRN (11:53)
[2022-01-12] MEDS ORDERED: METHOCARBAMOL 500 MG TABLET PO PRN (11:53)
[2022-01-12] MEDS ORDERED: MAGNESIUM CITRATE 300 ML BOTTLE PO PRN (11:53)
[2022-01-12] MEDS ORDERED: MENTHOL/PHENOL 1 EACH UD MM PRN (11:53)
[2022-01-12] MEDS ORDERED: chlordiazePOXIDE HCL 25 MG CAPSULE PO PRN (11:53)
[2022-01-12] MEDS ORDERED: diazePAM 5 MG TABLET PO PRN (12:49)
[2022-01-12] MEDS ORDERED: ALBUTEROL SO4 HFA INHALER IH PRN (12:49)
[2022-01-12 13:03] VITALS: BMI 37.7
[2022-01-12 14:28] LABS: HEMATOCRIT 40.4 % (32.4-45.2); HEMOGLOBIN 13.1 GM/dL (10.7-15.3); MCH 29.9 pg (25.7-33.7); MCHC 32.3 g/dl (32.0-36.0); MEAN CELL VOLUME 92.5 fl (80-96); MEAN PLT VOLUME 9.7 fl (7.5-11.1); PLATELET COUNT 214 10^3/uL (134-434); RBC 4.37 M/mm3 (3.60-5.2); RDW 15.3 % (11.6-15.6); WHITE BLOOD COUNT 6.3 K/mm3 (4.0-10.0)
[2022-01-12 14:41] LABS: BLOOD UREA NITROGEN 22.3 mg/dL (7-18); CALCIUM 9.2 mg/dL (8.5-10.1)
[2022-01-12 14:42] LABS: ALBUMIN 3.9 g/dl (3.4-5.0)
[2022-01-12 14:46] LABS: CREATININE 0.8 mg/dL (0.55-1.3)
[2022-01-12 14:48] LABS: TOT PROT 7.6 g/dl (6.4-8.2)
[2022-01-12 14:49] LABS: BILIRUBIN,TOTAL 0.4 mg/dL (0.2-1)
[2022-01-12] MEDS: hydrOXYzine PAMOATE 25 MG CAPSULE (FP) PO SCH ×3 (15:55→22:48)
[2022-01-12] MEDS: PRENATAL VITAMINS W/ FOLIC ACID TABLET (FP) PO SCH (15:55)
[2022-01-12] MEDS ORDERED: chlordiazePOXIDE HCL 25 MG CAPSULE PO SCH (17:00)
[2022-01-12] MEDS: diazePAM 5 MG TABLET PO SCH ×2 (18:14→22:51)
[2022-01-12] MEDS: MELATONIN 5 MG TABLETS PO SCH (22:51)
[2022-01-13] MEDS: THIAMINE HCL 100 MG TABLET (FP) PO SCH ×2 (00:01→22:08)
[2022-01-13] MEDS: ALBUTEROL SO4 2.5/IPRATROPIUM 0.5 INH SOL 3 ML VIAL.NEB. NEB SCH ×4 (00:02→20:32)
[2022-01-13] MEDS: hydrOXYzine PAMOATE 25 MG CAPSULE (FP) PO SCH (05:36)
[2022-01-13] MEDS: diazePAM 5 MG TABLET PO SCH ×4 (05:37→22:07)
[2022-01-13] MEDS ORDERED: predniSONE 10 MG TABLET (UD) PO SCH (10:00)
[2022-01-13] MEDS: PRENATAL VITAMINS W/ FOLIC ACID TABLET (FP) PO SCH (10:20)
[2022-01-13] MEDS: PANTOPRAZOLE 20 MG TABLET PO SCH (10:20)
[2022-01-13] MEDS: BUDESONIDE/FORMETEROL FUMARATE 80/4.5 mcg INHALER IH SCH ×3 (10:21→22:09)
[2022-01-13] MEDS: AZITHROMYCIN 250 MG TABLET PO SCH (12:47)
[2022-01-13] MEDS: MELATONIN 5 MG TABLETS PO SCH (22:09)
[2022-01-13] MEDS: ACETAMINOPHEN 325 MG TABLET (FP) PO PRN (22:12)
[2022-01-13] MEDS: MAG HYDROX/AL HYDROX/SIMETH 30 ML UNIT-DOSE CUP PO PRN (22:14)
[2022-01-14] MEDS ORDERED: chlordiazePOXIDE HCL 25 MG CAPSULE PO SCH (05:00)
[2022-01-14] MEDS: diazePAM 5 MG TABLET PO SCH ×3 (06:34→22:39)
[2022-01-14] MEDS: ACETAMINOPHEN 325 MG TABLET (FP) PO PRN (06:35)
[2022-01-14] MEDS: ALBUTEROL SO4 2.5/IPRATROPIUM 0.5 INH SOL 3 ML VIAL.NEB. NEB SCH ×4 (08:21→22:38)
[2022-01-14] MEDS: ESCITALOPRAM OXALATE 10 MG TABLET PO SCH (10:26)
[2022-01-14] MEDS: PRENATAL VITAMINS W/ FOLIC ACID TABLET (FP) PO SCH (10:26)
[2022-01-14] MEDS: PANTOPRAZOLE 20 MG TABLET PO SCH (10:26)
[2022-01-14] MEDS: AZITHROMYCIN 250 MG TABLET PO SCH (10:27)
[2022-01-14] MEDS: BUDESONIDE/FORMETEROL FUMARATE 80/4.5 mcg INHALER IH SCH ×2 (10:27→22:38)
[2022-01-14] MEDS: VITAMINS A AND D TOPICAL OINTMENT 60 GM TUBE TP SCH ×3 (13:27→23:34)
[2022-01-14 16:12] LABS: SARS-CoV-2 NAA Not Detected (Not Detected)
[2022-01-14] MEDS: THIAMINE HCL 100 MG TABLET (FP) PO SCH (22:38)
[2022-01-14] MEDS: MELATONIN 5 MG TABLETS PO SCH (22:38)
[2022-01-15] MEDS ORDERED: chlordiazePOXIDE HCL 10 MG CAPSULE PO PRN
[2022-01-15] MEDS ORDERED: chlordiazePOXIDE HCL 10 MG CAPSULE PO SCH (05:00)
[2022-01-15] MEDS: diazePAM 5 MG TABLET PO SCH ×2 (06:10→18:16)
[2022-01-15] MEDS: VITAMINS A AND D TOPICAL OINTMENT 60 GM TUBE TP SCH ×4 (06:10→23:33)
[2022-01-15] MEDS: ESCITALOPRAM OXALATE 10 MG TABLET PO SCH (10:04)
[2022-01-15] MEDS: PANTOPRAZOLE 20 MG TABLET PO SCH (10:04)
[2022-01-15] MEDS: AZITHROMYCIN 250 MG TABLET PO SCH (10:05)
[2022-01-15] MEDS: ACETAMINOPHEN 325 MG TABLET (FP) PO PRN (10:07)
[2022-01-15] MEDS: BUDESONIDE/FORMETEROL FUMARATE 80/4.5 mcg INHALER IH SCH ×2 (10:09→23:32)
[2022-01-15] MEDS: PRENATAL VITAMINS W/ FOLIC ACID TABLET (FP) PO SCH (10:09)
[2022-01-15] MEDS: ALBUTEROL SO4 2.5/IPRATROPIUM 0.5 INH SOL 3 ML VIAL.NEB. NEB SCH ×3 (15:38→20:50)
[2022-01-15] MEDS: MELATONIN 5 MG TABLETS PO SCH (23:32)
[2022-01-15] MEDS: FLUTICASONE PROP 0.05% 16 GM NASAL SPRAY NS SCH (23:32)
[2022-01-15] MEDS: THIAMINE HCL 100 MG TABLET (FP) PO SCH (23:32)
[2022-01-16] MEDS ORDERED: chlordiazePOXIDE HCL 10 MG CAPSULE PO SCH (05:00)
[2022-01-16] MEDS ORDERED: diazePAM 5 MG TABLET PO ONE (06:00)
[2022-01-16] MEDS: VITAMINS A AND D TOPICAL OINTMENT 60 GM TUBE TP SCH ×4 (06:50→23:00)
[2022-01-16] MEDS: PANTOPRAZOLE 20 MG TABLET PO SCH (10:11)
[2022-01-16] MEDS: ESCITALOPRAM OXALATE 10 MG TABLET PO SCH (10:11)
[2022-01-16] MEDS: PRENATAL VITAMINS W/ FOLIC ACID TABLET (FP) PO SCH (10:11)
[2022-01-16] MEDS: AZITHROMYCIN 250 MG TABLET PO SCH (10:11)
[2022-01-16] MEDS: FLUTICASONE PROP 0.05% 16 GM NASAL SPRAY NS SCH ×2 (10:12→22:48)
[2022-01-16] MEDS: BUDESONIDE/FORMETEROL FUMARATE 80/4.5 mcg INHALER IH SCH ×2 (11:41→22:49)
[2022-01-16] MEDS: ALBUTEROL SO4 2.5/IPRATROPIUM 0.5 INH SOL 3 ML VIAL.NEB. NEB SCH ×2 (11:41→22:48)
[2022-01-16] MEDS: MELATONIN 5 MG TABLETS PO SCH (22:48)
[2022-01-16] MEDS: THIAMINE HCL 100 MG TABLET (FP) PO SCH (22:49)
[2022-01-17] MEDS ORDERED: chlordiazePOXIDE HCL 10 MG CAPSULE PO ONE (05:00)
[2022-01-17] MEDS: VITAMINS A AND D TOPICAL OINTMENT 60 GM TUBE TP SCH ×4 (06:40→23:18)
[2022-01-17] MEDS: ALBUTEROL SO4 2.5/IPRATROPIUM 0.5 INH SOL 3 ML VIAL.NEB. NEB SCH (06:41)
[2022-01-17] MEDS: FLUTICASONE PROP 0.05% 16 GM NASAL SPRAY NS SCH ×2 (10:38→22:52)
[2022-01-17] MEDS: PRENATAL VITAMINS W/ FOLIC ACID TABLET (FP) PO SCH (10:39)
[2022-01-17] MEDS: AZITHROMYCIN 250 MG TABLET PO SCH (10:39)
[2022-01-17] MEDS: PANTOPRAZOLE 20 MG TABLET PO SCH (10:39)
[2022-01-17] MEDS: ESCITALOPRAM OXALATE 10 MG TABLET PO SCH (10:39)
[2022-01-17] MEDS: BUDESONIDE/FORMETEROL FUMARATE 80/4.5 mcg INHALER IH SCH ×2 (10:41→22:52)
[2022-01-17] MEDS: MAG HYDROX/AL HYDROX/SIMETH 30 ML UNIT-DOSE CUP PO PRN (18:21)
[2022-01-17] MEDS: THIAMINE HCL 100 MG TABLET (FP) PO SCH (22:52)
[2022-01-17] MEDS: MELATONIN 5 MG TABLETS PO SCH (22:52)
[2022-01-18 07:42] VITALS: BP 146/77; PULSE 77; TEMP 97.5
[2022-01-18] MEDS: VITAMINS A AND D TOPICAL OINTMENT 60 GM TUBE TP SCH (07:48)
[2022-01-18] MEDS: ESCITALOPRAM OXALATE 10 MG TABLET PO SCH (10:17)
[2022-01-18] MEDS: PANTOPRAZOLE 20 MG TABLET PO SCH (10:17)
[2022-01-18] MEDS: PRENATAL VITAMINS W/ FOLIC ACID TABLET (FP) PO SCH (10:18)
[2022-01-18] MEDS: AZITHROMYCIN 250 MG TABLET PO SCH (10:18)
[2022-01-18] MEDS: FLUTICASONE PROP 0.05% 16 GM NASAL SPRAY NS SCH (10:19)
[2022-01-18] MEDS: BUDESONIDE/FORMETEROL FUMARATE 80/4.5 mcg INHALER IH SCH (10:25)
== END 2022-01-18 11:19 | disposition home or self-care (01) | DRG 897 ==
LOC: YASAS 11:32 → Y3N 13:18
PROVIDERS: ADMIT Allergy & Immunology; ATTEND Allergy & Immunology
PROC: HZ2ZZZZ Detoxification Services for Substance Abuse Treatment (ICD-10-PCS; principal; 2022-01-12)
DX: F10.230 Alcohol dependence with withdrawal, uncomplicated (principal); F10.24 Alcohol dependence with alcohol-induced mood disorder; F32.9 Major depressive disorder, single episode, unspecified; I10 Essential (primary) hypertension; J45.909 Unspecified asthma, uncomplicated; K21.9 Gastro-esophageal reflux disease without esophagitis; M17.0 Bilateral primary osteoarthritis of knee; R79.89 Other specified abnormal findings of blood chemistry; Z62.810 Personal history of physical and sexual abuse in childhood; E66.9 Obesity, unspecified; Z68.37 Body mass index [BMI] 37.0-37.9, adult; Z87.11 Personal history of peptic ulcer disease; Z91.410 Personal history of adult physical and sexual abuse
CPT/HCPCS: 36415; 80053; 85027; 86780; 93005; 93010; 94640; C9803; Q0162; U0003; U0005

== ENCOUNTER 2022-02-17 12:19 | Inpatient (IN) | payer MEDICARE, OTHER ==
[2022-02-17] MEDS ORDERED: MENTHOL/PHENOL 1 EACH UD MM PRN (14:17)
[2022-02-17] MEDS ORDERED: NICOTINE 10 MG CARTRIDGE (INHALER) IH PRN (14:17)
[2022-02-17] MEDS ORDERED: ACETAMINOPHEN 325 MG TABLET (FP) PO PRN (14:17)
[2022-02-17] MEDS ORDERED: ONDANSETRON *ODT* 4 MG TABLET SL PRN (14:17)
[2022-02-17] MEDS ORDERED: MAGNESIUM CITRATE 300 ML BOTTLE PO PRN (14:17)
[2022-02-17] MEDS ORDERED: IBUPROFEN 400 MG TABLET (FP) PO PRN (14:17)
[2022-02-17] MEDS ORDERED: LOPERAMIDE HCL 2 MG CAPSULE PO PRN (14:17)
[2022-02-17] MEDS ORDERED: BISMUTH SUBSALICYLATE 262 MG/15 ML BTL PO PRN (14:17)
[2022-02-17] MEDS ORDERED: diazePAM 5 MG TABLET PO PRN (14:17)
[2022-02-17] MEDS ORDERED: ALBUTEROL SO4 HFA INHALER IH PRN (14:24)
[2022-02-17] MEDS ORDERED: BUDESONIDE/FORMETEROL FUMARATE 80/4.5 mcg INHALER IH PRN (14:24)
[2022-02-17] MEDS ORDERED: PATIENT'S OWN MEDICATION (NON-FORMULARY) (Omeprazole Magnesium [Prilosec] 10 MG Suspdr.Pkt PO SCH (14:30)
[2022-02-17 15:20] VITALS: BMI 36.6
[2022-02-17] MEDS ORDERED: diazePAM 5 MG TABLET PO SCH (17:00)
[2022-02-17] MEDS: diazePAM 5 MG TABLET PO SCH ×3 (18:08→23:45)
[2022-02-17] MEDS: MAGNESIUM HYDROX 2400MG/30ML ORAL SUSPENSION 30 ML CUP PO PRN (18:11)
[2022-02-17] MEDS: hydrOXYzine PAMOATE 25 MG CAPSULE (FP) PO SCH ×2 (18:45→23:44)
[2022-02-17] MEDS: MELATONIN 5 MG TABLETS PO SCH (23:44)
[2022-02-17] MEDS: THIAMINE HCL 100 MG TABLET (FP) PO SCH (23:45)
[2022-02-18] MEDS: diazePAM 5 MG TABLET PO SCH ×4 (05:31→23:11)
[2022-02-18] MEDS: hydrOXYzine PAMOATE 25 MG CAPSULE (FP) PO SCH ×3 (05:32→13:24)
[2022-02-18 10:46] LABS: HEMATOCRIT 36.7 % (32.4-45.2); HEMOGLOBIN 12.4 GM/dL (10.7-15.3); MCH 31.3 pg (25.7-33.7); MCHC 33.8 g/dl (32.0-36.0); MEAN CELL VOLUME 92.8 fl (80-96); PLATELET COUNT 175 10^3/uL (134-434); RBC 3.96 M/mm3 (3.60-5.2); RDW 14.8 % (11.6-15.6); WHITE BLOOD COUNT 4.1 K/mm3 (4.0-10.0)
[2022-02-18] MEDS: PRENATAL VITAMINS W/ FOLIC ACID TABLET (FP) PO SCH (11:11)
[2022-02-18] MEDS: ESCITALOPRAM OXALATE 10 MG TABLET PO SCH (11:11)
[2022-02-18] MEDS: PANTOPRAZOLE 40 MG TABLET PO SCH (11:11)
[2022-02-18 11:35] LABS: ALBUMIN 3.6 g/dl (3.4-5.0); CALCIUM 9.4 mg/dL (8.5-10.1)
[2022-02-18 11:36] LABS: BLOOD UREA NITROGEN 20.6 mg/dL (7-18)
[2022-02-18 11:39] LABS: CREATININE 0.8 mg/dL (0.55-1.3)
[2022-02-18 11:40] LABS: BILIRUBIN,TOTAL 0.3 mg/dL (0.2-1); TOT PROT 7.3 g/dl (6.4-8.2)
[2022-02-18] MEDS: THIAMINE HCL 100 MG TABLET (FP) PO SCH (23:11)
[2022-02-18] MEDS: MELATONIN 5 MG TABLETS PO SCH (23:11)
[2022-02-19] MEDS ORDERED: diazePAM 5 MG TABLET PO SCH ×2 (05:00→06:00)
[2022-02-19] MEDS: IBUPROFEN 600 MG TABLET (FP) PO PRN (06:01)
[2022-02-19] MEDS: diazePAM 5 MG TABLET PO SCH ×3 (06:01→23:26)
[2022-02-19] MEDS: PRENATAL VITAMINS W/ FOLIC ACID TABLET (FP) PO SCH (11:09)
[2022-02-19] MEDS: ESCITALOPRAM OXALATE 10 MG TABLET PO SCH (11:09)
[2022-02-19] MEDS: METHOCARBAMOL 500 MG TABLET PO PRN ×2 (11:09→23:26)
[2022-02-19] MEDS: PANTOPRAZOLE 40 MG TABLET PO SCH (11:09)
[2022-02-19 14:34] LABS: URINE APPEARANCE CLEAR; URINE BILIRUBIN NEGATIVE (NEGATIVE); URINE COLOR YELLOW; URINE GLUCOSE (UA) NEGATIVE (NEGATIVE); URINE KETONE NEGATIVE (NEGATIVE); URINE LEUK ESTERASE NEGATIVE (NEGATIVE); URINE NITRITE NEGATIVE (NEGATIVE); URINE PROTEIN NEGATIVE (NEGATIVE); URINE UROBILINOGEN 0.2 mg/dL (0.2-1.0)
[2022-02-19] MEDS: MELATONIN 5 MG TABLETS PO SCH (23:26)
[2022-02-19] MEDS: THIAMINE HCL 100 MG TABLET (FP) PO SCH (23:26)
[2022-02-20] MEDS ORDERED: chlordiazePOXIDE HCL 10 MG CAPSULE PO PRN
[2022-02-20] MEDS: diazePAM 5 MG TABLET PO SCH ×2 (05:42→17:38)
[2022-02-20] MEDS: IBUPROFEN 600 MG TABLET (FP) PO PRN (05:43)
[2022-02-20] MEDS: MAG HYDROX/AL HYDROX/SIMETH 30 ML UNIT-DOSE CUP PO PRN (05:44)
[2022-02-20] MEDS ORDERED: diazePAM 5 MG TABLET PO SCH (06:00)
[2022-02-20] MEDS: PANTOPRAZOLE 40 MG TABLET PO SCH (12:38)
[2022-02-20] MEDS: METHOCARBAMOL 500 MG TABLET PO PRN (12:38)
[2022-02-20] MEDS: ESCITALOPRAM OXALATE 10 MG TABLET PO SCH (12:38)
[2022-02-20] MEDS: PRENATAL VITAMINS W/ FOLIC ACID TABLET (FP) PO SCH (12:39)
[2022-02-20] MEDS: FLUTICASONE PROP 0.05% 16 GM NASAL SPRAY NS PRN (17:38)
[2022-02-21] MEDS: THIAMINE HCL 100 MG TABLET (FP) PO SCH ×2 (00:09→23:19)
[2022-02-21] MEDS: MELATONIN 5 MG TABLETS PO SCH ×2 (00:09→23:19)
[2022-02-21] MEDS ORDERED: diazePAM 5 MG TABLET PO SCH (06:00)
[2022-02-21] MEDS ORDERED: diazePAM 5 MG TABLET PO ONE (06:00)
[2022-02-21] MEDS: ESCITALOPRAM OXALATE 10 MG TABLET PO SCH (12:08)
[2022-02-21] MEDS: PRENATAL VITAMINS W/ FOLIC ACID TABLET (FP) PO SCH (12:08)
[2022-02-21] MEDS: MAG HYDROX/AL HYDROX/SIMETH 30 ML UNIT-DOSE CUP PO PRN (12:08)
[2022-02-21] MEDS: PANTOPRAZOLE 40 MG TABLET PO SCH (12:08)
[2022-02-21] MEDS: MAGNESIUM HYDROX 2400MG/30ML ORAL SUSPENSION 30 ML CUP PO PRN (17:55)
[2022-02-21] MEDS ORDERED: FAMOTIDINE 20 MG TABLET PO SCH (22:00)
[2022-02-22] MEDS ORDERED: diazePAM 5 MG TABLET PO ONE (06:00)
[2022-02-22] MEDS: FLUTICASONE PROP 0.05% 16 GM NASAL SPRAY NS PRN (06:55)
[2022-02-22] MEDS: IBUPROFEN 600 MG TABLET (FP) PO PRN (06:55)
[2022-02-22] MEDS: PANTOPRAZOLE 40 MG TABLET PO SCH (09:58)
[2022-02-22] MEDS: ESCITALOPRAM OXALATE 10 MG TABLET PO SCH (09:58)
[2022-02-22] MEDS: PRENATAL VITAMINS W/ FOLIC ACID TABLET (FP) PO SCH (09:58)
[2022-02-22] MEDS: THIAMINE HCL 100 MG TABLET (FP) PO SCH (23:11)
[2022-02-22] MEDS: MELATONIN 5 MG TABLETS PO SCH (23:11)
[2022-02-23 06:09] LABS: SARS-CoV-2 NAA Not Detected (Not Detected)
[2022-02-23] MEDS: PRENATAL VITAMINS W/ FOLIC ACID TABLET (FP) PO SCH (09:46)
[2022-02-23] MEDS: IBUPROFEN 600 MG TABLET (FP) PO PRN (09:47)
[2022-02-23] MEDS: ESCITALOPRAM OXALATE 10 MG TABLET PO SCH (09:47)
[2022-02-23] MEDS: PANTOPRAZOLE 40 MG TABLET PO SCH (09:47)
[2022-02-23] MEDS: MAGNESIUM HYDROX 2400MG/30ML ORAL SUSPENSION 30 ML CUP PO PRN (12:20)
[2022-02-23] MEDS: COLLOIDAL OATMEAL 1 BAR EACH TP PRN (12:20)
[2022-02-23] MEDS: amLODIPine BESYLATE 5 MG TABLET (FP) PO SCH (12:20)
[2022-02-23] MEDS: MINERAL OIL/PETROLAT/WATER TOPICAL CREAM 113 GM JAR TP SCH (14:55)
[2022-02-23] MEDS: MELATONIN 5 MG TABLETS PO SCH (21:17)
[2022-02-23] MEDS: BUDESONIDE/FORMETEROL FUMARATE 80/4.5 mcg INHALER IH SCH (21:17)
[2022-02-23] MEDS: THIAMINE HCL 100 MG TABLET (FP) PO SCH (21:17)
[2022-02-24] MEDS: MINERAL OIL/PETROLAT/WATER TOPICAL CREAM 113 GM JAR TP SCH (09:49)
[2022-02-24] MEDS: PRENATAL VITAMINS W/ FOLIC ACID TABLET (FP) PO SCH (09:49)
[2022-02-24] MEDS: BUDESONIDE/FORMETEROL FUMARATE 80/4.5 mcg INHALER IH SCH ×2 (09:50→22:16)
[2022-02-24] MEDS: ESCITALOPRAM OXALATE 10 MG TABLET PO SCH (09:51)
[2022-02-24] MEDS: PANTOPRAZOLE 40 MG TABLET PO SCH (09:51)
[2022-02-24] MEDS: amLODIPine BESYLATE 5 MG TABLET (FP) PO SCH (11:10)
[2022-02-24] MEDS: guaiFENesin 600 MG TABLET.ER (FP) PO SCH ×2 (15:55→22:15)
[2022-02-24] MEDS: MELATONIN 5 MG TABLETS PO SCH (22:15)
[2022-02-24] MEDS: THIAMINE HCL 100 MG TABLET (FP) PO SCH (22:16)
[2022-02-25] MEDS: PANTOPRAZOLE 40 MG TABLET PO SCH (10:06)
[2022-02-25] MEDS: ESCITALOPRAM OXALATE 10 MG TABLET PO SCH (10:06)
[2022-02-25] MEDS: amLODIPine BESYLATE 5 MG TABLET (FP) PO SCH (10:06)
[2022-02-25] MEDS: BUDESONIDE/FORMETEROL FUMARATE 80/4.5 mcg INHALER IH SCH ×2 (10:06→21:58)
[2022-02-25] MEDS: PRENATAL VITAMINS W/ FOLIC ACID TABLET (FP) PO SCH (10:07)
[2022-02-25] MEDS: MINERAL OIL/PETROLAT/WATER TOPICAL CREAM 113 GM JAR TP SCH (10:07)
[2022-02-25] MEDS: guaiFENesin 600 MG TABLET.ER (FP) PO SCH ×2 (10:08→21:57)
[2022-02-25] MEDS: MELATONIN 5 MG TABLETS PO SCH (21:57)
[2022-02-25] MEDS: THIAMINE HCL 100 MG TABLET (FP) PO SCH (21:58)
[2022-02-25] MEDS: FLUTICASONE PROP 0.05% 16 GM NASAL SPRAY NS PRN (22:00)
[2022-02-26] MEDS: ACETAMINOPHEN 325 MG TABLET (FP) PO PRN (06:43)
[2022-02-26] MEDS: amLODIPine BESYLATE 5 MG TABLET (FP) PO SCH (09:42)
[2022-02-26] MEDS: PANTOPRAZOLE 40 MG TABLET PO SCH (09:42)
[2022-02-26] MEDS: ESCITALOPRAM OXALATE 10 MG TABLET PO SCH (09:42)
[2022-02-26] MEDS: PRENATAL VITAMINS W/ FOLIC ACID TABLET (FP) PO SCH (09:42)
[2022-02-26] MEDS: MINERAL OIL/PETROLAT/WATER TOPICAL CREAM 113 GM JAR TP SCH (09:43)
[2022-02-26] MEDS: guaiFENesin 600 MG TABLET.ER (FP) PO SCH ×2 (09:43→23:19)
[2022-02-26] MEDS: BUDESONIDE/FORMETEROL FUMARATE 80/4.5 mcg INHALER IH SCH ×2 (09:43→23:19)
[2022-02-26] MEDS: FLUTICASONE PROP 0.05% 16 GM NASAL SPRAY NS PRN (09:44)
[2022-02-26] MEDS: MAGNESIUM HYDROX 2400MG/30ML ORAL SUSPENSION 30 ML CUP PO PRN (22:44)
[2022-02-26] MEDS: DOCUSATE SODIUM 100 MG CAPSULE (FP) PO PRN (22:44)
[2022-02-26] MEDS: MELATONIN 5 MG TABLETS PO SCH (23:19)
[2022-02-26] MEDS: THIAMINE HCL 100 MG TABLET (FP) PO SCH (23:20)
[2022-02-27] MEDS: ACETAMINOPHEN 325 MG TABLET (FP) PO PRN (06:16)
[2022-02-27] MEDS: PRENATAL VITAMINS W/ FOLIC ACID TABLET (FP) PO SCH (10:13)
[2022-02-27] MEDS: BUDESONIDE/FORMETEROL FUMARATE 80/4.5 mcg INHALER IH SCH (10:13)
[2022-02-27] MEDS: amLODIPine BESYLATE 5 MG TABLET (FP) PO SCH (10:14)
[2022-02-27] MEDS: guaiFENesin 600 MG TABLET.ER (FP) PO SCH (10:14)
[2022-02-27] MEDS: ESCITALOPRAM OXALATE 10 MG TABLET PO SCH (10:14)
[2022-02-27] MEDS: MINERAL OIL/PETROLAT/WATER TOPICAL CREAM 113 GM JAR TP SCH (10:14)
[2022-02-27] MEDS: PANTOPRAZOLE 40 MG TABLET PO SCH (10:14)
[2022-02-28] MEDS: BUDESONIDE/FORMETEROL FUMARATE 80/4.5 mcg INHALER IH SCH ×3 (00:11→22:02)
[2022-02-28] MEDS: MELATONIN 5 MG TABLETS PO SCH ×2 (00:11→22:02)
[2022-02-28] MEDS: guaiFENesin 600 MG TABLET.ER (FP) PO SCH ×3 (00:11→22:02)
[2022-02-28] MEDS: THIAMINE HCL 100 MG TABLET (FP) PO SCH ×2 (00:12→22:02)
[2022-02-28] MEDS: MINERAL OIL/PETROLAT/WATER TOPICAL CREAM 113 GM JAR TP SCH (09:49)
[2022-02-28] MEDS: PRENATAL VITAMINS W/ FOLIC ACID TABLET (FP) PO SCH (09:49)
[2022-02-28] MEDS: PANTOPRAZOLE 40 MG TABLET PO SCH (09:49)
[2022-02-28] MEDS: amLODIPine BESYLATE 5 MG TABLET (FP) PO SCH (09:49)
[2022-02-28] MEDS: ESCITALOPRAM OXALATE 10 MG TABLET PO SCH (09:49)
[2022-03-01] MEDS: FLUTICASONE PROP 0.05% 16 GM NASAL SPRAY NS PRN (09:48)
[2022-03-01] MEDS: MINERAL OIL/PETROLAT/WATER TOPICAL CREAM 113 GM JAR TP SCH (09:48)
[2022-03-01] MEDS: BUDESONIDE/FORMETEROL FUMARATE 80/4.5 mcg INHALER IH SCH ×2 (09:48→21:06)
[2022-03-01] MEDS: ESCITALOPRAM OXALATE 10 MG TABLET PO SCH (09:49)
[2022-03-01] MEDS: PRENATAL VITAMINS W/ FOLIC ACID TABLET (FP) PO SCH (09:49)
[2022-03-01] MEDS: amLODIPine BESYLATE 5 MG TABLET (FP) PO SCH (09:49)
[2022-03-01] MEDS: PANTOPRAZOLE 40 MG TABLET PO SCH (09:49)
[2022-03-01] MEDS: guaiFENesin 600 MG TABLET.ER (FP) PO SCH ×2 (09:49→21:06)
[2022-03-01] MEDS: COLLOIDAL OATMEAL 1 BAR EACH TP PRN (12:37)
[2022-03-01] MEDS: MELATONIN 5 MG TABLETS PO SCH (21:06)
[2022-03-01] MEDS: THIAMINE HCL 100 MG TABLET (FP) PO SCH (21:07)
[2022-03-02] MEDS: ACETAMINOPHEN 325 MG TABLET (FP) PO PRN (08:53)
[2022-03-02] MEDS: MAG HYDROX/AL HYDROX/SIMETH 30 ML UNIT-DOSE CUP PO PRN (08:55)
[2022-03-02] MEDS: PRENATAL VITAMINS W/ FOLIC ACID TABLET (FP) PO SCH (09:40)
[2022-03-02] MEDS: BUDESONIDE/FORMETEROL FUMARATE 80/4.5 mcg INHALER IH SCH ×2 (09:40→21:41)
[2022-03-02] MEDS: amLODIPine BESYLATE 5 MG TABLET (FP) PO SCH (09:41)
[2022-03-02] MEDS: ESCITALOPRAM OXALATE 10 MG TABLET PO SCH (09:41)
[2022-03-02] MEDS: PANTOPRAZOLE 40 MG TABLET PO SCH (09:41)
[2022-03-02] MEDS: guaiFENesin 600 MG TABLET.ER (FP) PO SCH ×2 (09:41→21:41)
[2022-03-02] MEDS: MINERAL OIL/PETROLAT/WATER TOPICAL CREAM 113 GM JAR TP SCH (09:45)
[2022-03-02] MEDS: THIAMINE HCL 100 MG TABLET (FP) PO SCH (21:41)
[2022-03-02] MEDS: MELATONIN 5 MG TABLETS PO SCH (21:41)
[2022-03-03] MEDS: ACETAMINOPHEN 325 MG TABLET (FP) PO PRN (05:47)
[2022-03-03] MEDS: PANTOPRAZOLE 40 MG TABLET PO SCH (09:41)
[2022-03-03] MEDS: BUDESONIDE/FORMETEROL FUMARATE 80/4.5 mcg INHALER IH SCH ×2 (09:41→21:13)
[2022-03-03] MEDS: amLODIPine BESYLATE 5 MG TABLET (FP) PO SCH (09:41)
[2022-03-03] MEDS: ESCITALOPRAM OXALATE 10 MG TABLET PO SCH (09:41)
[2022-03-03] MEDS: PRENATAL VITAMINS W/ FOLIC ACID TABLET (FP) PO SCH (09:41)
[2022-03-03] MEDS: guaiFENesin 600 MG TABLET.ER (FP) PO SCH ×2 (09:41→21:13)
[2022-03-03] MEDS: FLUTICASONE PROP 0.05% 16 GM NASAL SPRAY NS PRN (09:41)
[2022-03-03] MEDS: MINERAL OIL/PETROLAT/WATER TOPICAL CREAM 113 GM JAR TP SCH (09:42)
[2022-03-03] MEDS: THIAMINE HCL 100 MG TABLET (FP) PO SCH (21:13)
[2022-03-03] MEDS: MELATONIN 5 MG TABLETS PO SCH (21:13)
[2022-03-04] MEDS: guaiFENesin 600 MG TABLET.ER (FP) PO SCH ×2 (09:52→21:23)
[2022-03-04] MEDS: ESCITALOPRAM OXALATE 10 MG TABLET PO SCH (09:52)
[2022-03-04] MEDS: PANTOPRAZOLE 40 MG TABLET PO SCH (09:52)
[2022-03-04] MEDS: MINERAL OIL/PETROLAT/WATER TOPICAL CREAM 113 GM JAR TP SCH (09:52)
[2022-03-04] MEDS: BUDESONIDE/FORMETEROL FUMARATE 80/4.5 mcg INHALER IH SCH ×2 (09:52→21:24)
[2022-03-04] MEDS: PRENATAL VITAMINS W/ FOLIC ACID TABLET (FP) PO SCH (09:52)
[2022-03-04] MEDS: ACETAMINOPHEN 325 MG TABLET (FP) PO PRN (09:54)
[2022-03-04] MEDS: amLODIPine BESYLATE 5 MG TABLET (FP) PO SCH (11:00)
[2022-03-04] MEDS: MELATONIN 5 MG TABLETS PO SCH (21:23)
[2022-03-04] MEDS: THIAMINE HCL 100 MG TABLET (FP) PO SCH (21:24)
[2022-03-05] MEDS: guaiFENesin 600 MG TABLET.ER (FP) PO SCH ×2 (09:43→21:34)
[2022-03-05] MEDS: PRENATAL VITAMINS W/ FOLIC ACID TABLET (FP) PO SCH (09:43)
[2022-03-05] MEDS: MINERAL OIL/PETROLAT/WATER TOPICAL CREAM 113 GM JAR TP SCH (09:43)
[2022-03-05] MEDS: BUDESONIDE/FORMETEROL FUMARATE 80/4.5 mcg INHALER IH SCH ×2 (09:44→21:34)
[2022-03-05] MEDS: ESCITALOPRAM OXALATE 10 MG TABLET PO SCH (09:44)
[2022-03-05] MEDS: amLODIPine BESYLATE 5 MG TABLET (FP) PO SCH (09:44)
[2022-03-05] MEDS: PANTOPRAZOLE 40 MG TABLET PO SCH (09:44)
[2022-03-05] MEDS: ACETAMINOPHEN 325 MG TABLET (FP) PO PRN (09:45)
[2022-03-05] MEDS: MELATONIN 5 MG TABLETS PO SCH (21:34)
[2022-03-05] MEDS: THIAMINE HCL 100 MG TABLET (FP) PO SCH (21:34)
[2022-03-06] MEDS: PANTOPRAZOLE 40 MG TABLET PO SCH (09:55)
[2022-03-06] MEDS: ESCITALOPRAM OXALATE 10 MG TABLET PO SCH (09:55)
[2022-03-06] MEDS: amLODIPine BESYLATE 5 MG TABLET (FP) PO SCH (09:55)
[2022-03-06] MEDS: BUDESONIDE/FORMETEROL FUMARATE 80/4.5 mcg INHALER IH SCH ×2 (09:56→22:19)
[2022-03-06] MEDS: PRENATAL VITAMINS W/ FOLIC ACID TABLET (FP) PO SCH (09:56)
[2022-03-06] MEDS: guaiFENesin 600 MG TABLET.ER (FP) PO SCH ×2 (09:56→22:19)
[2022-03-06] MEDS: ACETAMINOPHEN 325 MG TABLET (FP) PO PRN (09:57)
[2022-03-06] MEDS: MINERAL OIL/PETROLAT/WATER TOPICAL CREAM 113 GM JAR TP SCH (11:19)
[2022-03-06] MEDS ORDERED: METHOCARBAMOL 500 MG TABLET PO PRN (13:14)
[2022-03-06] MEDS: MELATONIN 5 MG TABLETS PO SCH (22:19)
[2022-03-06] MEDS: THIAMINE HCL 100 MG TABLET (FP) PO SCH (22:19)
[2022-03-07] MEDS: ACETAMINOPHEN 325 MG TABLET (FP) PO PRN (06:05)
[2022-03-07] MEDS: COLLOIDAL OATMEAL 1 BAR EACH TP PRN (07:16)
[2022-03-07] MEDS: PRENATAL VITAMINS W/ FOLIC ACID TABLET (FP) PO SCH (10:43)
[2022-03-07] MEDS: guaiFENesin 600 MG TABLET.ER (FP) PO SCH ×2 (10:43→22:14)
[2022-03-07] MEDS: MINERAL OIL/PETROLAT/WATER TOPICAL CREAM 113 GM JAR TP SCH (10:43)
[2022-03-07] MEDS: FLUTICASONE PROP 0.05% 16 GM NASAL SPRAY NS PRN (10:44)
[2022-03-07] MEDS: BUDESONIDE/FORMETEROL FUMARATE 80/4.5 mcg INHALER IH SCH ×2 (10:45→22:13)
[2022-03-07] MEDS: ESCITALOPRAM OXALATE 10 MG TABLET PO SCH (10:45)
[2022-03-07] MEDS: amLODIPine BESYLATE 5 MG TABLET (FP) PO SCH (10:45)
[2022-03-07] MEDS: PANTOPRAZOLE 40 MG TABLET PO SCH (10:45)
[2022-03-07] MEDS: MAG HYDROX/AL HYDROX/SIMETH 30 ML UNIT-DOSE CUP PO PRN (15:02)
[2022-03-07] MEDS: MELATONIN 5 MG TABLETS PO SCH (22:14)
[2022-03-07] MEDS: THIAMINE HCL 100 MG TABLET (FP) PO SCH (22:15)
[2022-03-08] MEDS: BUDESONIDE/FORMETEROL FUMARATE 80/4.5 mcg INHALER IH SCH ×2 (09:47→23:08)
[2022-03-08] MEDS: guaiFENesin 600 MG TABLET.ER (FP) PO SCH ×2 (09:47→23:08)
[2022-03-08] MEDS: PANTOPRAZOLE 40 MG TABLET PO SCH (09:47)
[2022-03-08] MEDS: ESCITALOPRAM OXALATE 10 MG TABLET PO SCH (09:47)
[2022-03-08] MEDS: MINERAL OIL/PETROLAT/WATER TOPICAL CREAM 113 GM JAR TP SCH (09:47)
[2022-03-08] MEDS: PRENATAL VITAMINS W/ FOLIC ACID TABLET (FP) PO SCH (09:48)
[2022-03-08] MEDS: amLODIPine BESYLATE 5 MG TABLET (FP) PO SCH (09:48)
[2022-03-08] MEDS: THIAMINE HCL 100 MG TABLET (FP) PO SCH (23:08)
[2022-03-08] MEDS: MELATONIN 5 MG TABLETS PO SCH (23:08)
[2022-03-09] MEDS: MINERAL OIL/PETROLAT/WATER TOPICAL CREAM 113 GM JAR TP SCH (10:17)
[2022-03-09] MEDS: PANTOPRAZOLE 40 MG TABLET PO SCH (10:17)
[2022-03-09] MEDS: ESCITALOPRAM OXALATE 10 MG TABLET PO SCH (10:17)
[2022-03-09] MEDS: guaiFENesin 600 MG TABLET.ER (FP) PO SCH ×2 (10:17→21:41)
[2022-03-09] MEDS: BUDESONIDE/FORMETEROL FUMARATE 80/4.5 mcg INHALER IH SCH ×2 (10:17→21:42)
[2022-03-09] MEDS: PRENATAL VITAMINS W/ FOLIC ACID TABLET (FP) PO SCH (10:17)
[2022-03-09] MEDS: amLODIPine BESYLATE 5 MG TABLET (FP) PO SCH (10:17)
[2022-03-09] MEDS: DOCUSATE SODIUM 100 MG CAPSULE (FP) PO PRN (10:19)
[2022-03-09] MEDS: WITCH HAZEL 50% (TUCKS) 40 PAD/JAR PAD TP PRN ×2 (11:02→21:43)
[2022-03-09] MEDS: PHENYLEPHRINE 0.25%/STARCH 1 EACH SUPP.RECT RC SCH ×2 (11:02→21:47)
[2022-03-09] MEDS: THIAMINE HCL 100 MG TABLET (FP) PO SCH (21:41)
[2022-03-09] MEDS: MELATONIN 5 MG TABLETS PO SCH (21:42)
[2022-03-10] MEDS: PHENYLEPHRINE 0.25%/STARCH 1 EACH SUPP.RECT RC SCH ×2 (09:40→23:56)
[2022-03-10] MEDS: WITCH HAZEL 50% (TUCKS) 40 PAD/JAR PAD TP PRN (09:41)
[2022-03-10] MEDS: PRENATAL VITAMINS W/ FOLIC ACID TABLET (FP) PO SCH (09:42)
[2022-03-10] MEDS: guaiFENesin 600 MG TABLET.ER (FP) PO SCH ×2 (09:42→23:57)
[2022-03-10] MEDS: BUDESONIDE/FORMETEROL FUMARATE 80/4.5 mcg INHALER IH SCH ×2 (09:42→23:57)
[2022-03-10] MEDS: MINERAL OIL/PETROLAT/WATER TOPICAL CREAM 113 GM JAR TP SCH (09:42)
[2022-03-10] MEDS: PANTOPRAZOLE 40 MG TABLET PO SCH (09:43)
[2022-03-10] MEDS: ESCITALOPRAM OXALATE 10 MG TABLET PO SCH (09:43)
[2022-03-10] MEDS: FLUTICASONE PROP 0.05% 16 GM NASAL SPRAY NS PRN (09:43)
[2022-03-10] MEDS: amLODIPine BESYLATE 5 MG TABLET (FP) PO SCH (10:58)
[2022-03-10] MEDS: MELATONIN 5 MG TABLETS PO SCH (23:57)
[2022-03-10] MEDS: DOCUSATE SODIUM 100 MG CAPSULE (FP) PO SCH (23:57)
[2022-03-10] MEDS: THIAMINE HCL 100 MG TABLET (FP) PO SCH (23:57)
[2022-03-11] MEDS: DOCUSATE SODIUM 100 MG CAPSULE (FP) PO SCH ×3 (07:06→23:12)
[2022-03-11] MEDS: PRENATAL VITAMINS W/ FOLIC ACID TABLET (FP) PO SCH (10:26)
[2022-03-11] MEDS: amLODIPine BESYLATE 5 MG TABLET (FP) PO SCH (10:26)
[2022-03-11] MEDS: PANTOPRAZOLE 40 MG TABLET PO SCH (10:26)
[2022-03-11] MEDS: ESCITALOPRAM OXALATE 10 MG TABLET PO SCH (10:26)
[2022-03-11] MEDS: BUDESONIDE/FORMETEROL FUMARATE 80/4.5 mcg INHALER IH SCH ×2 (10:27→23:11)
[2022-03-11] MEDS: MINERAL OIL/PETROLAT/WATER TOPICAL CREAM 113 GM JAR TP SCH (10:27)
[2022-03-11] MEDS: guaiFENesin 600 MG TABLET.ER (FP) PO SCH ×2 (10:27→23:11)
[2022-03-11] MEDS: PHENYLEPHRINE 0.25%/STARCH 1 EACH SUPP.RECT RC SCH ×2 (12:34→23:12)
[2022-03-11] MEDS: COLLOIDAL OATMEAL 1 BAR EACH TP PRN (15:09)
[2022-03-11] MEDS: MELATONIN 5 MG TABLETS PO SCH (23:12)
[2022-03-11] MEDS: THIAMINE HCL 100 MG TABLET (FP) PO SCH (23:12)
[2022-03-12 07:11] VITALS: BP 138/70; PULSE 96; TEMP 97.7
[2022-03-12] MEDS: DOCUSATE SODIUM 100 MG CAPSULE (FP) PO SCH (07:22)
[2022-03-12] MEDS: ESCITALOPRAM OXALATE 10 MG TABLET PO SCH (11:12)
[2022-03-12] MEDS: guaiFENesin 600 MG TABLET.ER (FP) PO SCH (11:12)
[2022-03-12] MEDS: PRENATAL VITAMINS W/ FOLIC ACID TABLET (FP) PO SCH (11:12)
[2022-03-12] MEDS: PHENYLEPHRINE 0.25%/STARCH 1 EACH SUPP.RECT RC SCH (11:12)
[2022-03-12] MEDS: PANTOPRAZOLE 40 MG TABLET PO SCH (11:12)
[2022-03-12] MEDS: amLODIPine BESYLATE 5 MG TABLET (FP) PO SCH (11:12)
[2022-03-12] MEDS: MINERAL OIL/PETROLAT/WATER TOPICAL CREAM 113 GM JAR TP SCH (11:12)
[2022-03-12] MEDS: BUDESONIDE/FORMETEROL FUMARATE 80/4.5 mcg INHALER IH SCH (11:12)
== END 2022-03-12 10:09 | disposition home or self-care (01) | DRG 895 ==
LOC: YASAS 12:19 → Y6N 16:53 → UNDODISIN 02-22 23:15 → Y5N 02-22 23:36
PROVIDERS: ADMIT Allergy & Immunology; ATTEND Allergy & Immunology
PROC: HZ2ZZZZ Detoxification Services for Substance Abuse Treatment (ICD-10-PCS; 2022-02-17)
PROC: HZ42ZZZ Group Counseling for Substance Abuse Treatment, Cognitive-Behavioral (ICD-10-PCS; principal; 2022-02-22)
DX: F10.20 Alcohol dependence, uncomplicated (principal); F33.2 Major depressive disorder, recurrent severe without psychotic features; F10.282 Alcohol dependence with alcohol-induced sleep disorder; F10.24 Alcohol dependence with alcohol-induced mood disorder; I10 Essential (primary) hypertension; E78.5 Hyperlipidemia, unspecified; G47.33 Obstructive sleep apnea (adult) (pediatric); J45.909 Unspecified asthma, uncomplicated; K21.9 Gastro-esophageal reflux disease without esophagitis; K27.9 Peptic ulcer, site unspecified, unspecified as acute or chronic, without hemorrhage or perforation; M17.0 Bilateral primary osteoarthritis of knee; R73.9 Hyperglycemia, unspecified; R94.31 Abnormal electrocardiogram [ECG] [EKG]; R10.9 Unspecified abdominal pain; E66.9 Obesity, unspecified; Z68.36 Body mass index [BMI] 36.0-36.9, adult; Z68.39 Body mass index [BMI] 39.0-39.9, adult; Z86.69 Personal history of other diseases of the nervous system and sense organs; Z88.8 Allergy status to other drugs, medicaments and biological substances
CPT/HCPCS: 36415; 80053; 81003; 82962; 85027; 86780; 93005; 93010; C9803-CS; U0003; U0005

== ENCOUNTER 2022-02-20 23:07 | Emergency (ER) | payer OTHER ==
[2022-02-20 23:35] VITALS: BMI 43.4
[2022-02-20] MEDS ORDERED: FAMOTIDINE 20 MG/50 ML IVPB 20 MG/50 ML MG IVPB ONE (23:54)
[2022-02-21] MEDS ORDERED: FAMOTIDINE 10 MG TABLET PO ONE (01:33)
[2022-02-21] MEDS ORDERED: FAMOTIDINE 20 MG TABLET ONE (02:02)
[2022-02-21 02:03] LABS: BASO % 0.4 % (0-2.0); EOS % 2.1 % (0-4.5); HEMATOCRIT 34.7 % (32.4-45.2); HEMOGLOBIN 11.6 GM/dL (10.7-15.3); LYMPH % 40.5 % (8-40); MCHC 33.5 g/dl (32.0-36.0); MEAN CELL VOLUME 92.5 fl (80-96); MEAN PLT VOLUME 9.1 fl (7.5-11.1); MONO % 9.3 % (3.8-10.2); NEUT % 47.7 % (42.8-82.8); PLATELET COUNT 177 10^3/uL (134-434); RBC 3.75 M/mm3 (3.60-5.2); RDW 14.7 % (11.6-15.6)
[2022-02-21 02:20] LABS: CHLORIDE 107 mmol/L (98-107); INR 1.03 (0.83-1.09); PROTHROMBIN TIME (PATIENT) 11.9 SEC (9.7-13.0); SODIUM 141 mmol/L (136-145)
[2022-02-21 02:22] LABS: ACTIVATED PTT 29.6 SECONDS (25.2-36.5); CALCIUM 8.4 mg/dL (8.5-10.1)
[2022-02-21 02:23] LABS: ALBUMIN 3.1 g/dl (3.4-5.0); ANION GAP 3 MMOL/L (8-16); BLOOD UREA NITROGEN 14.6 mg/dL (7-18); CO2 31 mmol/L (21-32); GLUCOSE,RANDOM 89 mg/dL (74-106); LIPASE 215 U/L (73-393); MAGNESIUM 2.1 mg/dL (1.8-2.4)
[2022-02-21 02:25] LABS: SGPT/ALT 31 U/L (13-61)
[2022-02-21 02:26] LABS: CREATININE 0.7 mg/dL (0.55-1.3); SGOT/AST 13 U/L (15-37)
[2022-02-21 02:27] LABS: BILIRUBIN,TOTAL 0.2 mg/dL (0.2-1); TOT PROT 6.6 g/dl (6.4-8.2)
[2022-02-21 02:29] LABS: ALK PHOS 58 U/L (45-117)
[2022-02-21 04:54] LABS: EPI CELLS 8 /uL (0-25.1); HYALINE CASTS 0 /uL (0-3.1); PH,URINE 7.5 (5.0-8.0); URINE APPEARANCE CLEAR; URINE BACTERIA 16 /uL (0-1359); URINE BILIRUBIN NEGATIVE (NEGATIVE); URINE COLOR YELLOW; URINE GLUCOSE (UA) NEGATIVE (NEGATIVE); URINE KETONE NEGATIVE (NEGATIVE); URINE LEUK ESTERASE 1+ (NEGATIVE); URINE NITRITE NEGATIVE (NEGATIVE); URINE PROTEIN NEGATIVE (NEGATIVE); URINE RBC 0 /uL (0-23.9); URINE UROBILINOGEN 0.2 mg/dL (0.2-1.0); URINE WBC 16 /uL (0-25.8)
[2022-02-21 05:01] LABS: COCAINE, UR NEGATIVE (NEGATIVE); METHADONE, UR NEGATIVE (NEGATIVE); PHENCYCLIDINE,URINE NEGATIVE (NEGATIVE)
[2022-02-21 05:02] LABS: OPIATES, URI NEGATIVE (NEGATIVE); URINE BARBITURATES NEGATIVE (NEGATIVE)
[2022-02-21 06:41] LABS: URINE AMPHETAMINES NEGATIVE (NEGATIVE); URINE BENZODIAZEPINES POSITIVE (NEGATIVE)
[2022-02-21] MEDS ORDERED: diazePAM 5 MG TABLET PO ONE (06:44)
[2022-02-21 11:11] VITALS: BP 148/77; PULSE 77; TEMP 98
[2022-03-08] MEDS ORDERED: HYDROCORTISONE 2.5% TOPICAL CREAM 30 GM TUBE TP SCH (23:15)
== END 2022-02-21 11:11 | disposition home or self-care (01) ==
LOC: JER 23:07
DX: R10.13 Epigastric pain (principal); R45.851 Suicidal ideations
CPT/HCPCS: 36415; 71045-TC-FY; 74176-TC; 80053; 80307; 81003; 83605; 83690; 83735; 84484; 85025; 85610; 85730; 87077; 87086; 93005; 93010; 99285-25

== ENCOUNTER 2022-04-16 15:18 | Inpatient (IN) | payer OTHER ==
[2022-04-16 18:59] VITALS: BMI 37.5
[2022-04-16] MEDS ORDERED: IBUPROFEN 400 MG TABLET (FP) PO PRN ×2 (19:51→20:16)
[2022-04-16] MEDS ORDERED: ACETAMINOPHEN 325 MG TABLET (FP) PO PRN ×2 (20:16)
[2022-04-16] MEDS ORDERED: LOPERAMIDE HCL 2 MG CAPSULE PO PRN (20:16)
[2022-04-16] MEDS ORDERED: MAGNESIUM HYDROX 2400MG/30ML ORAL SUSPENSION 30 ML CUP PO PRN (20:16)
[2022-04-16] MEDS ORDERED: ONDANSETRON *ODT* 4 MG TABLET SL PRN (20:16)
[2022-04-16] MEDS ORDERED: DICYCLOMINE HCL 10 MG CAPSULE PO PRN (20:16)
[2022-04-16] MEDS ORDERED: MELATONIN 5 MG TABLETS PO PRN (20:16)
[2022-04-16] MEDS ORDERED: MAGNESIUM CITRATE 300 ML BOTTLE PO PRN (20:16)
[2022-04-16] MEDS ORDERED: BISMUTH SUBSALICYLATE 524 MG/30 ML PO PRN (20:16)
[2022-04-16] MEDS ORDERED: LORazepam 1 MG TABLET PO PRN (20:16)
[2022-04-16] MEDS: DOCUSATE SODIUM 100 MG CAPSULE (FP) PO SCH (22:36)
[2022-04-16] MEDS: THIAMINE HCL 100 MG TABLET (FP) PO SCH (22:37)
[2022-04-16] MEDS: BENZOCAINE/MENTHOL (CHLORASEPTIC ) LOZENGE MM PRN (22:38)
[2022-04-16] MEDS: BUDESONIDE/FORMETEROL FUMARATE 80/4.5 mcg INHALER IH SCH (22:38)
[2022-04-16] MEDS: METHOCARBAMOL 500 MG TABLET PO PRN (22:42)
[2022-04-16] MEDS: ACETAMINOPHEN 325 MG TABLET (FP) PO PRN (22:43)
[2022-04-16] MEDS: LORazepam 2 MG TABLET PO SCH (22:46)
[2022-04-16] MEDS: ALBUTEROL SO4 HFA INHALER IH SCH (22:48)
[2022-04-17] MEDS: ALBUTEROL SO4 HFA INHALER IH SCH ×6 (01:07→21:36)
[2022-04-17] MEDS: BENZOCAINE/MENTHOL (CHLORASEPTIC ) LOZENGE MM PRN ×2 (04:01→19:40)
[2022-04-17] MEDS: LORazepam 2 MG TABLET PO SCH ×4 (06:29→22:47)
[2022-04-17] MEDS: PRENATAL VITAMINS W/ FOLIC ACID TABLET (FP) PO SCH (10:47)
[2022-04-17] MEDS: DOCUSATE SODIUM 100 MG CAPSULE (FP) PO SCH (10:47)
[2022-04-17] MEDS: BUDESONIDE/FORMETEROL FUMARATE 80/4.5 mcg INHALER IH SCH ×2 (10:47→22:46)
[2022-04-17] MEDS: PANTOPRAZOLE 20 MG TABLET PO SCH (10:48)
[2022-04-17] MEDS: amLODIPine BESYLATE 5 MG TABLET (FP) PO SCH (10:48)
[2022-04-17] MEDS ORDERED: ESCITALOPRAM OXALATE 10 MG TABLET PO ONE (10:58)
[2022-04-17 13:43] LABS: HEMATOCRIT 37.4 % (32.4-45.2); HEMOGLOBIN 12.2 GM/dL (10.7-15.3); MCH 30.3 pg (25.7-33.7); MCHC 32.5 g/dl (32.0-36.0); MEAN CELL VOLUME 93.1 fl (80-96); MEAN PLT VOLUME 9.7 fl (7.5-11.1); PLATELET COUNT 202 10^3/uL (134-434); RBC 4.02 M/mm3 (3.60-5.2); RDW 14.8 % (11.6-15.6)
[2022-04-17 13:58] LABS: CALCIUM 9.5 mg/dL (8.5-10.1)
[2022-04-17 14:01] LABS: ALBUMIN 3.5 g/dl (3.4-5.0)
[2022-04-17 14:03] LABS: CREATININE 0.6 mg/dL (0.55-1.3)
[2022-04-17 14:05] LABS: TOT PROT 7.1 g/dl (6.4-8.2)
[2022-04-17 14:12] LABS: BILIRUBIN,TOTAL 0.2 mg/dL (0.2-1)
[2022-04-17 15:19] LABS: BLOOD UREA NITROGEN 19.6 mg/dL (7-18)
[2022-04-17] MEDS: MAG HYDROX/AL HYDROX/SIMETH 30 ML UNIT-DOSE CUP PO PRN (17:57)
[2022-04-17] MEDS: THIAMINE HCL 100 MG TABLET (FP) PO SCH (22:46)
[2022-04-17] MEDS: ACETAMINOPHEN 325 MG TABLET (FP) PO PRN (22:46)
[2022-04-18] MEDS: ALBUTEROL SO4 HFA INHALER IH SCH ×7 (00:53→23:46)
[2022-04-18] MEDS: LORazepam 1 MG TABLET PO SCH ×4 (04:56→22:42)
[2022-04-18] MEDS: BENZOCAINE/MENTHOL (CHLORASEPTIC ) LOZENGE MM PRN (04:59)
[2022-04-18] MEDS: METHOCARBAMOL 500 MG TABLET PO PRN (05:00)
[2022-04-18] MEDS: PANTOPRAZOLE 20 MG TABLET PO SCH (10:32)
[2022-04-18] MEDS: ESCITALOPRAM OXALATE 10 MG TABLET PO SCH (10:33)
[2022-04-18] MEDS: DOCUSATE SODIUM 100 MG CAPSULE (FP) PO SCH (10:33)
[2022-04-18] MEDS: amLODIPine BESYLATE 5 MG TABLET (FP) PO SCH (10:33)
[2022-04-18] MEDS: PRENATAL VITAMINS W/ FOLIC ACID TABLET (FP) PO SCH (10:37)
[2022-04-18] MEDS ORDERED: ESCITALOPRAM OXALATE 10 MG TABLET PO ONE (10:58)
[2022-04-18] MEDS: BUDESONIDE/FORMETEROL FUMARATE 80/4.5 mcg INHALER IH SCH ×2 (11:30→22:43)
[2022-04-18] MEDS ORDERED: FLUCONAZOLE 150 MG TABLET PO ONE (13:00)
[2022-04-18] MEDS: THIAMINE HCL 100 MG TABLET (FP) PO SCH (22:43)
[2022-04-19] MEDS ORDERED: LORazepam 0.5 MG TABLET PO PRN
[2022-04-19] MEDS: METHOCARBAMOL 500 MG TABLET PO PRN (05:40)
[2022-04-19] MEDS: LORazepam 0.5 MG TABLET PO SCH ×4 (05:40→22:54)
[2022-04-19] MEDS: ALBUTEROL SO4 HFA INHALER IH SCH ×5 (05:43→22:48)
[2022-04-19] MEDS: BENZOCAINE/MENTHOL (CHLORASEPTIC ) LOZENGE MM PRN ×2 (05:43→12:07)
[2022-04-19] MEDS: MAG HYDROX/AL HYDROX/SIMETH 30 ML UNIT-DOSE CUP PO PRN (08:48)
[2022-04-19] MEDS ORDERED: COLLOIDAL OATMEAL 1 BAR EACH TP PRN (09:27)
[2022-04-19] MEDS: amLODIPine BESYLATE 5 MG TABLET (FP) PO SCH (11:08)
[2022-04-19] MEDS: ESCITALOPRAM OXALATE 10 MG TABLET PO SCH (11:09)
[2022-04-19] MEDS: BUDESONIDE/FORMETEROL FUMARATE 80/4.5 mcg INHALER IH SCH ×2 (11:09→22:48)
[2022-04-19] MEDS: PANTOPRAZOLE 20 MG TABLET PO SCH (11:10)
[2022-04-19] MEDS: PRENATAL VITAMINS W/ FOLIC ACID TABLET (FP) PO SCH (11:10)
[2022-04-19] MEDS: DOCUSATE SODIUM 100 MG CAPSULE (FP) PO SCH (11:10)
[2022-04-19] MEDS: ACETAMINOPHEN 325 MG TABLET (FP) PO PRN (12:05)
[2022-04-19 14:28] LABS: URINE APPEARANCE CLEAR; URINE BILIRUBIN NEGATIVE (NEGATIVE); URINE COLOR YELLOW; URINE GLUCOSE (UA) NEGATIVE (NEGATIVE); URINE KETONE NEGATIVE (NEGATIVE); URINE LEUK ESTERASE NEGATIVE (NEGATIVE); URINE NITRITE NEGATIVE (NEGATIVE); URINE PROTEIN NEGATIVE (NEGATIVE); URINE UROBILINOGEN 0.2 mg/dL (0.2-1.0)
[2022-04-19 16:08] LABS: SARS-CoV-2 NAA Not Detected (Not Detected)
[2022-04-19] MEDS: THIAMINE HCL 100 MG TABLET (FP) PO SCH (22:53)
[2022-04-20] MEDS ORDERED: LORazepam 0.5 MG TABLET PO ONE (05:00)
[2022-04-20 06:35] VITALS: BP 164/75; PULSE 96; TEMP 97.3
[2022-04-20] MEDS ORDERED: CARBAMIDE PEROXIDE 6.5% OTIC 15 ML BOTTLE AD SCH (09:00)
== END 2022-04-20 07:42 | disposition short-term general hospital (02) | DRG 897 ==
LOC: YASAS 15:18 → Y3N 20:34
PROVIDERS: ADMIT Allergy & Immunology; ATTEND Surgery
PROC: HZ2ZZZZ Detoxification Services for Substance Abuse Treatment (ICD-10-PCS; principal; 2022-04-16)
DX: F10.230 Alcohol dependence with withdrawal, uncomplicated (principal); F33.2 Major depressive disorder, recurrent severe without psychotic features; J45.901 Unspecified asthma with (acute) exacerbation; F10.282 Alcohol dependence with alcohol-induced sleep disorder; F10.24 Alcohol dependence with alcohol-induced mood disorder; F32.A Depression, unspecified; G47.33 Obstructive sleep apnea (adult) (pediatric); I10 Essential (primary) hypertension; K21.9 Gastro-esophageal reflux disease without esophagitis; M17.0 Bilateral primary osteoarthritis of knee; E66.9 Obesity, unspecified; Z68.37 Body mass index [BMI] 37.0-37.9, adult; R07.9 Chest pain, unspecified; R05.9 Cough, unspecified; R73.9 Hyperglycemia, unspecified; R79.89 Other specified abnormal findings of blood chemistry; Z62.810 Personal history of physical and sexual abuse in childhood; Z91.410 Personal history of adult physical and sexual abuse; Z87.11 Personal history of peptic ulcer disease; Z28.311 Partially vaccinated for COVID-19
CPT/HCPCS: 36415; 80053; 81003; 85027; 86780; C9803-CS; U0003; U0005

== ENCOUNTER 2022-04-20 00:39 | Observation (INO) | payer OTHER ==
[2022-04-20 01:03] VITALS: BMI 37.5
[2022-04-20] MEDS ORDERED: ALBUTEROL SO4 2.5/IPRATROPIUM 0.5 INH SOL 3 ML VIAL.NEB. NEB SCH (01:45)
[2022-04-20 02:42] LABS: BASO % 0.9 % (0-2.0); EOS % 2.7 % (0-4.5); HEMATOCRIT 35.9 % (32.4-45.2); HEMOGLOBIN 12.1 GM/dL (10.7-15.3); LYMPH % 36.8 % (8-40); MCH 31.1 pg (25.7-33.7); MCHC 33.6 g/dl (32.0-36.0); MEAN CELL VOLUME 92.4 fl (80-96); MEAN PLT VOLUME 8.6 fl (7.5-11.1); MONO % 7.9 % (3.8-10.2); NEUT % 51.7 % (42.8-82.8); PLATELET COUNT 181 10^3/uL (134-434); RBC 3.88 M/mm3 (3.60-5.2); RDW 15.2 % (11.6-15.6); WHITE BLOOD COUNT 4.2 K/mm3 (4.0-10.0)
[2022-04-20 02:44] LABS: URINE APPEARANCE CLEAR; URINE BILIRUBIN NEGATIVE (NEGATIVE); URINE COLOR YELLOW; URINE GLUCOSE (UA) NEGATIVE (NEGATIVE); URINE KETONE NEGATIVE (NEGATIVE); URINE LEUK ESTERASE NEGATIVE (NEGATIVE); URINE NITRITE NEGATIVE (NEGATIVE); URINE PROTEIN NEGATIVE (NEGATIVE); URINE UROBILINOGEN 0.2 mg/dL (0.2-1.0)
[2022-04-20 02:56] LABS: VENOUS BASE EXCESS 2.1 mmol/L (-2-2); VENOUS O2 SATURATION 99.6 % (70-80); VENOUS PCO2 38.4 mmHg (38-52); VENOUS PH 7.449 (7.310-7.410)
[2022-04-20 02:57] LABS: INR 1.03 (0.83-1.09); PROTHROMBIN TIME (PATIENT) 11.9 SEC (9.7-13.0)
[2022-04-20 03:00] LABS: ACTIVATED PTT 29.5 SECONDS (25.2-36.5)
[2022-04-20 03:08] LABS: CALCIUM 8.8 mg/dL (8.5-10.1)
[2022-04-20 03:09] LABS: ALBUMIN 3.3 g/dl (3.4-5.0); BLOOD UREA NITROGEN 18.6 mg/dL (7-18); MAGNESIUM 2.5 mg/dL (1.8-2.4)
[2022-04-20 03:12] LABS: CREATININE 0.7 mg/dL (0.55-1.3)
[2022-04-20 03:14] LABS: BILIRUBIN,TOTAL 0.2 mg/dL (0.2-1); TOT PROT 6.9 g/dl (6.4-8.2)
[2022-04-20 04:14] LABS: N-TERMINAL BNP 22.9 pg/ml (5-125)
[2022-04-20] MEDS ORDERED: ALBUTEROL SO4 HFA INHALER IH PRN (07:39)
[2022-04-20 08:48] VITALS: BP 133/69; PULSE 85; TEMP 98.6
[2022-04-20] MEDS ORDERED: LORazepam 0.5 MG TABLET PO PRN (08:58)
[2022-04-20] MEDS ORDERED: BUDESONIDE/FORMETEROL FUMARATE 80/4.5 mcg INHALER IH SCH (10:00)
[2022-04-20] MEDS ORDERED: PANTOPRAZOLE 20 MG TABLET PO SCH (10:00)
[2022-04-20] MEDS ORDERED: ESCITALOPRAM OXALATE 10 MG TABLET PO SCH (10:00)
[2022-04-20] MEDS ORDERED: amLODIPine BESYLATE 5 MG TABLET (FP) PO SCH (10:00)
== END 2022-04-20 11:13 | disposition home or self-care (01) ==
LOC: JER 00:39 → INTOOBSV 05:37 → JERBED 05:37 → UNDOADMOB 05:37 → JERBED 07:38
PROVIDERS: ADMIT Internal Medicine; ATTEND Internal Medicine
DX: J45.909 Unspecified asthma, uncomplicated (principal); J44.9 Chronic obstructive pulmonary disease, unspecified; F32.9 Major depressive disorder, single episode, unspecified; G47.33 Obstructive sleep apnea (adult) (pediatric); F10.99 Alcohol use, unspecified with unspecified alcohol-induced disorder; K21.9 Gastro-esophageal reflux disease without esophagitis; I10 Essential (primary) hypertension; Z87.891 Personal history of nicotine dependence; R05.9 Cough, unspecified; H61.21 Impacted cerumen, right ear; R06.02 Shortness of breath; Z68.37 Body mass index [BMI] 37.0-37.9, adult; E66.8 Other obesity; R07.9 Chest pain, unspecified; Z88.8 Allergy status to other drugs, medicaments and biological substances
CPT/HCPCS: 0241U-QW; 36415; 70450-TC; 71045-TC-FY; 76705-TC; 80053; 81003; 82803; 83735; 83880; 84484; 85025; 85610; 85730; 87086; 93005; 93010; 99285-25; G0378

== ENCOUNTER 2022-08-05 14:00 | Inpatient (IN) | payer OTHER ==
[2022-08-05 17:13] VITALS: BMI 31.6
[2022-08-05] MEDS ORDERED: LOPERAMIDE HCL 2 MG CAPSULE PO PRN (19:36)
[2022-08-05] MEDS ORDERED: MAG HYDROX/AL HYDROX/SIMETH 30 ML UNIT-DOSE CUP PO PRN (19:36)
[2022-08-05] MEDS ORDERED: guaiFENesin 200 MG/10 ML 10 ML UNIT-DOSE CUPS PO PRN (19:36)
[2022-08-05] MEDS ORDERED: MAGNESIUM CITRATE 300 ML BOTTLE PO PRN (19:36)
[2022-08-05] MEDS ORDERED: ACETAMINOPHEN 325 MG TABLET (FP) PO PRN (19:36)
[2022-08-05] MEDS ORDERED: MAGNESIUM HYDROX 2400MG/30ML ORAL SUSPENSION 30 ML CUP PO PRN (19:36)
[2022-08-05] MEDS ORDERED: IBUPROFEN 400 MG TABLET (FP) PO PRN (19:36)
[2022-08-05] MEDS ORDERED: MELATONIN 5 MG TABLETS PO PRN (19:36)
[2022-08-05] MEDS ORDERED: ALBUTEROL SO4 2.5/IPRATROPIUM 0.5 INH SOL 3 ML VIAL.NEB. NEB PRN (19:49)
[2022-08-05] MEDS ORDERED: ALBUTEROL SO4 HFA INHALER IH ONE (20:14)
[2022-08-05] MEDS: ALBUTEROL SO4 HFA INHALER IH SCH (20:19)
[2022-08-05] MEDS ORDERED: THIAMINE HCL 100 MG TABLET (FP) PO SCH (22:00)
[2022-08-06] MEDS: ALBUTEROL SO4 HFA INHALER IH SCH ×7 (01:24→23:35)
[2022-08-06] MEDS: BUDESONIDE/FORMETEROL FUMARATE 80/4.5 mcg INHALER IH SCH ×3 (01:25→22:43)
[2022-08-06] MEDS ORDERED: ONDANSETRON *ODT* 4 MG TABLET SL PRN (09:32)
[2022-08-06] MEDS ORDERED: LOPERAMIDE HCL 2 MG CAPSULE PO PRN (09:32)
[2022-08-06] MEDS ORDERED: DICYCLOMINE HCL 10 MG CAPSULE PO PRN (09:32)
[2022-08-06] MEDS ORDERED: IBUPROFEN 600 MG TABLET (FP) PO PRN (09:32)
[2022-08-06] MEDS ORDERED: BENZOCAINE/MENTHOL (CHLORASEPTIC ) LOZENGE MM PRN (09:32)
[2022-08-06] MEDS ORDERED: MAGNESIUM CITRATE 300 ML BOTTLE PO PRN (09:32)
[2022-08-06] MEDS ORDERED: BISMUTH SUBSALICYLATE 524 MG/30 ML PO PRN (09:32)
[2022-08-06] MEDS ORDERED: MAG HYDROX/AL HYDROX/SIMETH 30 ML UNIT-DOSE CUP PO PRN (09:32)
[2022-08-06] MEDS ORDERED: METHOCARBAMOL 500 MG TABLET PO PRN (09:32)
[2022-08-06] MEDS ORDERED: IBUPROFEN 400 MG TABLET (FP) PO PRN (09:32)
[2022-08-06] MEDS ORDERED: chlordiazePOXIDE HCL 25 MG CAPSULE PO PRN (09:32)
[2022-08-06] MEDS ORDERED: ACETAMINOPHEN 325 MG TABLET (FP) PO PRN ×2 (09:32)
[2022-08-06] MEDS ORDERED: diazePAM 5 MG TABLET PO PRN (09:51)
[2022-08-06] MEDS ORDERED: PRENATAL VITAMINS W/ FOLIC ACID TABLET (FP) PO SCH (10:00)
[2022-08-06] MEDS ORDERED: PANTOPRAZOLE 20 MG TABLET PO ONE (10:00)
[2022-08-06] MEDS ORDERED: chlordiazePOXIDE HCL 25 MG CAPSULE PO SCH (11:00)
[2022-08-06] MEDS: amLODIPine BESYLATE 5 MG TABLET (FP) PO SCH (12:05)
[2022-08-06] MEDS: diazePAM 5 MG TABLET PO SCH ×3 (12:05→22:40)
[2022-08-06] MEDS: hydrOXYzine PAMOATE 25 MG CAPSULE (FP) PO SCH ×3 (12:06→17:52)
[2022-08-06] MEDS: PRENATAL VITAMINS W/ FOLIC ACID TABLET (FP) PO SCH (12:06)
[2022-08-06] MEDS: MAGNESIUM HYDROX 2400MG/30ML ORAL SUSPENSION 30 ML CUP PO PRN (12:08)
[2022-08-06] MEDS ORDERED: COLLOIDAL OATMEAL 1 BAR EACH TP PRN (20:33)
[2022-08-06] MEDS: DOCUSATE SODIUM 100 MG CAPSULE (FP) PO PRN (22:39)
[2022-08-06] MEDS: THIAMINE HCL 100 MG TABLET (FP) PO SCH (22:40)
[2022-08-06] MEDS: MELATONIN 5 MG TABLETS PO SCH (22:40)
[2022-08-07] MEDS: ALBUTEROL SO4 HFA INHALER IH SCH ×5 (05:50→21:25)
[2022-08-07] MEDS: MAGNESIUM HYDROX 2400MG/30ML ORAL SUSPENSION 30 ML CUP PO PRN (05:51)
[2022-08-07] MEDS: diazePAM 5 MG TABLET PO SCH ×4 (05:51→23:17)
[2022-08-07] MEDS: guaiFENesin 200 MG/10 ML 10 ML UNIT-DOSE CUPS PO PRN (10:49)
[2022-08-07] MEDS: amLODIPine BESYLATE 5 MG TABLET (FP) PO SCH (10:50)
[2022-08-07] MEDS: ESCITALOPRAM OXALATE 10 MG TABLET PO SCH (10:50)
[2022-08-07] MEDS: PRENATAL VITAMINS W/ FOLIC ACID TABLET (FP) PO SCH (11:20)
[2022-08-07] MEDS: BUDESONIDE/FORMETEROL FUMARATE 80/4.5 mcg INHALER IH SCH ×2 (11:20→23:16)
[2022-08-07 11:38] LABS: HEMATOCRIT 34.1 % (32.4-45.2); HEMOGLOBIN 11.1 GM/dL (10.7-15.3); MCH 30.5 pg (25.7-33.7); MCHC 32.6 g/dl (32.0-36.0); MEAN CELL VOLUME 93.5 fl (80-96); MEAN PLT VOLUME 9.2 fl (7.5-11.1); PLATELET COUNT 249 10^3/uL (134-434); RBC 3.65 M/mm3 (3.60-5.2); RDW 16.5 % (11.6-15.6); WHITE BLOOD COUNT 4.1 K/mm3 (4.0-10.0)
[2022-08-07 11:41] LABS: CALCIUM 9.1 mg/dL (8.5-10.1)
[2022-08-07 11:42] LABS: ALBUMIN 3.1 g/dl (3.4-5.0); BLOOD UREA NITROGEN 11.1 mg/dL (7-18)
[2022-08-07 11:45] LABS: CREATININE 0.7 mg/dL (0.55-1.3)
[2022-08-07 11:46] LABS: BILIRUBIN,TOTAL 0.2 mg/dL (0.2-1); TOT PROT 6.3 g/dl (6.4-8.2)
[2022-08-07] MEDS: DOCUSATE SODIUM 100 MG CAPSULE (FP) PO PRN (12:13)
[2022-08-07] MEDS: MELATONIN 5 MG TABLETS PO SCH (23:16)
[2022-08-07] MEDS: THIAMINE HCL 100 MG TABLET (FP) PO SCH (23:17)
[2022-08-08] MEDS: ALBUTEROL SO4 HFA INHALER IH SCH ×6 (00:55→22:40)
[2022-08-08] MEDS: guaiFENesin 200 MG/10 ML 10 ML UNIT-DOSE CUPS PO PRN (04:50)
[2022-08-08] MEDS: DOCUSATE SODIUM 100 MG CAPSULE (FP) PO PRN ×2 (04:51→11:06)
[2022-08-08] MEDS ORDERED: chlordiazePOXIDE HCL 25 MG CAPSULE PO SCH (05:00)
[2022-08-08] MEDS: diazePAM 5 MG TABLET PO SCH ×3 (05:14→22:41)
[2022-08-08] MEDS: ESCITALOPRAM OXALATE 10 MG TABLET PO SCH (11:05)
[2022-08-08] MEDS: amLODIPine BESYLATE 5 MG TABLET (FP) PO SCH (11:05)
[2022-08-08] MEDS: PRENATAL VITAMINS W/ FOLIC ACID TABLET (FP) PO SCH (11:05)
[2022-08-08] MEDS: BUDESONIDE/FORMETEROL FUMARATE 80/4.5 mcg INHALER IH SCH ×2 (11:05→22:40)
[2022-08-08] MEDS: HYDROCORTISONE 2.5% TOPICAL CREAM 30 GM TUBE RC SCH (22:36)
[2022-08-08] MEDS: THIAMINE HCL 100 MG TABLET (FP) PO SCH ×2 (22:40→22:42)
[2022-08-08] MEDS: MELATONIN 5 MG TABLETS PO SCH (22:41)
[2022-08-09] MEDS ORDERED: chlordiazePOXIDE HCL 10 MG CAPSULE PO PRN
[2022-08-09] MEDS: ALBUTEROL SO4 HFA INHALER IH SCH ×7 (00:13→23:12)
[2022-08-09] MEDS ORDERED: chlordiazePOXIDE HCL 10 MG CAPSULE PO SCH (05:00)
[2022-08-09] MEDS: diazePAM 5 MG TABLET PO SCH ×2 (06:07→18:14)
[2022-08-09] MEDS: DOCUSATE SODIUM 100 MG CAPSULE (FP) PO PRN (06:10)
[2022-08-09] MEDS: guaiFENesin 200 MG/10 ML 10 ML UNIT-DOSE CUPS PO PRN ×2 (06:11→23:11)
[2022-08-09] MEDS: ESCITALOPRAM OXALATE 10 MG TABLET PO SCH (10:24)
[2022-08-09] MEDS: amLODIPine BESYLATE 5 MG TABLET (FP) PO SCH (10:24)
[2022-08-09] MEDS: BUDESONIDE/FORMETEROL FUMARATE 80/4.5 mcg INHALER IH SCH ×2 (10:24→22:30)
[2022-08-09] MEDS: PRENATAL VITAMINS W/ FOLIC ACID TABLET (FP) PO SCH (10:25)
[2022-08-09] MEDS: HYDROCORTISONE 2.5% TOPICAL CREAM 30 GM TUBE RC SCH (22:29)
[2022-08-09] MEDS: MELATONIN 5 MG TABLETS PO SCH (22:30)
[2022-08-09] MEDS: THIAMINE HCL 100 MG TABLET (FP) PO SCH (22:30)
[2022-08-10] MEDS ORDERED: chlordiazePOXIDE HCL 10 MG CAPSULE PO SCH (05:00)
[2022-08-10] MEDS ORDERED: diazePAM 5 MG TABLET PO ONE (06:00)
[2022-08-10] MEDS: ALBUTEROL SO4 HFA INHALER IH SCH ×2 (06:14→08:24)
[2022-08-10] MEDS: guaiFENesin 200 MG/10 ML 10 ML UNIT-DOSE CUPS PO PRN (06:22)
[2022-08-10] MEDS: DOCUSATE SODIUM 100 MG CAPSULE (FP) PO PRN (06:24)
[2022-08-10 07:06] VITALS: RESP 18
[2022-08-10 09:07] VITALS: BP 153/82; PULSE 79; TEMP 96.1
[2022-08-10] MEDS: BUDESONIDE/FORMETEROL FUMARATE 80/4.5 mcg INHALER IH SCH (10:22)
[2022-08-10] MEDS: ESCITALOPRAM OXALATE 10 MG TABLET PO SCH (10:22)
[2022-08-10] MEDS: amLODIPine BESYLATE 5 MG TABLET (FP) PO SCH (10:22)
[2022-08-10] MEDS: PRENATAL VITAMINS W/ FOLIC ACID TABLET (FP) PO SCH (10:22)
[2022-08-11] MEDS ORDERED: chlordiazePOXIDE HCL 10 MG CAPSULE PO ONE (05:00)
== END 2022-08-10 10:23 | disposition other institution (70) | DRG 897 ==
LOC: YASAS 14:00 → Y3N 08-06 10:10
PROVIDERS: ADMIT Allergy & Immunology; ATTEND Surgery
PROC: HZ2ZZZZ Detoxification Services for Substance Abuse Treatment (ICD-10-PCS; principal; 2022-08-06)
DX: F10.230 Alcohol dependence with withdrawal, uncomplicated (principal); F32.A Depression, unspecified; F10.24 Alcohol dependence with alcohol-induced mood disorder; I10 Essential (primary) hypertension; J45.909 Unspecified asthma, uncomplicated; K21.9 Gastro-esophageal reflux disease without esophagitis; K64.9 Unspecified hemorrhoids; M17.0 Bilateral primary osteoarthritis of knee; Z62.810 Personal history of physical and sexual abuse in childhood; Z91.81 History of falling; Z91.410 Personal history of adult physical and sexual abuse; Z87.11 Personal history of peptic ulcer disease; Z88.8 Allergy status to other drugs, medicaments and biological substances
CPT/HCPCS: 36415; 80053; 85027; 86780; 87811; C9803-CS; U0003; U0005

== ENCOUNTER 2022-11-30 13:33 | Inpatient (IN) | payer OTHER ==
[2022-11-30 14:39] VITALS: BMI 32.4
[2022-11-30] MEDS ORDERED: BENZOCAINE/MENTHOL (CHLORASEPTIC ) LOZENGE MM PRN (16:13)
[2022-11-30] MEDS ORDERED: ONDANSETRON *ODT* 4 MG TABLET SL PRN (16:13)
[2022-11-30] MEDS ORDERED: ACETAMINOPHEN 325 MG TABLET (FP) PO PRN ×2 (16:13)
[2022-11-30] MEDS ORDERED: DICYCLOMINE HCL 10 MG CAPSULE PO PRN (16:13)
[2022-11-30] MEDS ORDERED: IBUPROFEN 400 MG TABLET (FP) PO PRN (16:13)
[2022-11-30] MEDS ORDERED: MAGNESIUM HYDROX 2400MG/30ML ORAL SUSPENSION 30 ML CUP PO PRN (16:13)
[2022-11-30] MEDS ORDERED: LOPERAMIDE HCL 2 MG CAPSULE PO PRN (16:13)
[2022-11-30] MEDS ORDERED: BISMUTH SUBSALICYLATE 524 MG/30 ML PO PRN (16:13)
[2022-11-30] MEDS ORDERED: NALOXONE HCL (KLOXXADO) 8 MG SPRAY NS PRN (16:13)
[2022-11-30] MEDS ORDERED: POLYETHYLENE GLYCOL (HEALTHYLAX) 3350 17 GM PACKET PO PRN (16:13)
[2022-11-30] MEDS ORDERED: hydrOXYzine PAMOATE 25 MG CAPSULE (FP) PO PRN (16:13)
[2022-11-30] MEDS ORDERED: MAG HYDROX/AL HYDROX/SIMETH 30 ML UNIT-DOSE CUP PO PRN (16:13)
[2022-11-30] MEDS ORDERED: IBUPROFEN 600 MG TABLET (FP) PO PRN (16:13)
[2022-11-30] MEDS ORDERED: LORazepam 1 MG TABLET PO PRN (16:13)
[2022-11-30] MEDS ORDERED: ALBUTEROL SO4 HFA INHALER IH ONE (17:18)
[2022-11-30] MEDS: ALBUTEROL SO4 HFA INHALER IH PRN (17:20)
[2022-11-30] MEDS: LORazepam 2 MG TABLET PO SCH ×2 (18:22→23:44)
[2022-11-30] MEDS: PRENATAL VITAMINS W/ FOLIC ACID TABLET (FP) PO SCH (18:23)
[2022-11-30] MEDS: METHOCARBAMOL 500 MG TABLET PO PRN (18:23)
[2022-11-30] MEDS: BUDESONIDE/FORMETEROL FUMARATE 80/4.5 mcg INHALER IH SCH (23:43)
[2022-11-30] MEDS: MELATONIN 5 MG TABLETS PO SCH (23:43)
[2022-11-30] MEDS: THIAMINE HCL 100 MG TABLET (FP) PO SCH (23:44)
[2022-12-01] MEDS: ALBUTEROL SO4 HFA INHALER IH PRN ×3 (05:02→23:28)
[2022-12-01] MEDS: LORazepam 2 MG TABLET PO SCH ×4 (05:04→23:30)
[2022-12-01] MEDS ORDERED: amLODIPine BESYLATE 5 MG TABLET (FP) PO SCH (10:00)
[2022-12-01] MEDS ORDERED: COLLOIDAL OATMEAL 1 BAR EACH TP PRN (10:04)
[2022-12-01] MEDS: BUDESONIDE/FORMETEROL FUMARATE 80/4.5 mcg INHALER IH SCH ×2 (10:27→23:29)
[2022-12-01] MEDS: PRENATAL VITAMINS W/ FOLIC ACID TABLET (FP) PO SCH (10:28)
[2022-12-01] MEDS: ESCITALOPRAM OXALATE 10 MG TABLET PO SCH (10:28)
[2022-12-01] MEDS: PANTOPRAZOLE 20 MG TABLET PO SCH (10:28)
[2022-12-01 11:50] LABS: HEMATOCRIT 34.3 % (32.4-45.2); HEMOGLOBIN 11.2 GM/dL (10.7-15.3); MCH 31.1 pg (25.7-33.7); MCHC 32.7 g/dl (32.0-36.0); MEAN CELL VOLUME 95.4 fl (80-96); MEAN PLT VOLUME 9.2 fl (7.5-11.1); PLATELET COUNT 176 10^3/uL (134-434); RDW 15.9 % (11.6-15.6); WHITE BLOOD COUNT 4.2 K/mm3 (4.0-10.0)
[2022-12-01 12:22] LABS: ALBUMIN 2.9 g/dl (3.4-5.0); BLOOD UREA NITROGEN 16.7 mg/dL (7-18); CALCIUM 8.8 mg/dL (8.5-10.1)
[2022-12-01 12:25] LABS: CREATININE 0.6 mg/dL (0.55-1.3)
[2022-12-01 12:27] LABS: BILIRUBIN,TOTAL 0.5 mg/dL (0.2-1); TOT PROT 6.2 g/dl (6.4-8.2)
[2022-12-01] MEDS ORDERED: LACTULOSE 20 GM/30 ML UDC (FOR ORAL USE ONLY) PO SCH (22:00)
[2022-12-01] MEDS: MELATONIN 5 MG TABLETS PO SCH (23:27)
[2022-12-01] MEDS: METHOCARBAMOL 500 MG TABLET PO PRN (23:28)
[2022-12-01] MEDS: THIAMINE HCL 100 MG TABLET (FP) PO SCH (23:28)
[2022-12-01] MEDS: BENZOCAINE 28 GM HEMORRHOIDAL OINTMENT RC SCH (23:29)
[2022-12-02] MEDS: ALBUTEROL SO4 HFA INHALER IH PRN ×3 (04:48→22:31)
[2022-12-02] MEDS: LORazepam 1 MG TABLET PO SCH ×4 (04:50→22:26)
[2022-12-02] MEDS ORDERED: ALBUTEROL SO4 0.042% IH SOL 1.25 MG/3 ML VIAL.NEB NEB ONE (05:23)
[2022-12-02] MEDS ORDERED: ALBUTEROL SO4 0.083% IH SOL 2.5 MG/3 ML VIAL.NEB. NEB ONE (05:45)
[2022-12-02] MEDS ORDERED: ALBUTEROL SO4 0.083% IH SOL 2.5 MG/3 ML VIAL.NEB. NEB PRN (08:24)
[2022-12-02] MEDS: LACTULOSE 20 GM/30 ML UDC (FOR ORAL USE ONLY) PO SCH ×5 (10:23→22:27)
[2022-12-02] MEDS: amLODIPine BESYLATE 10 MG TABLET (FP) PO SCH (10:23)
[2022-12-02] MEDS: METHOCARBAMOL 500 MG TABLET PO PRN (10:23)
[2022-12-02] MEDS: PANTOPRAZOLE 20 MG TABLET PO SCH (10:23)
[2022-12-02] MEDS: ESCITALOPRAM OXALATE 10 MG TABLET PO SCH (10:23)
[2022-12-02] MEDS: BUDESONIDE/FORMETEROL FUMARATE 80/4.5 mcg INHALER IH SCH ×2 (10:23→22:28)
[2022-12-02] MEDS: PRENATAL VITAMINS W/ FOLIC ACID TABLET (FP) PO SCH (10:23)
[2022-12-02] MEDS: THIAMINE HCL 100 MG TABLET (FP) PO SCH (22:26)
[2022-12-02] MEDS: MELATONIN 5 MG TABLETS PO SCH (22:27)
[2022-12-02] MEDS: LISINOPRIL 10 MG TABLET PO SCH (22:28)
[2022-12-02] MEDS: BENZOCAINE 28 GM HEMORRHOIDAL OINTMENT RC SCH (22:28)
[2022-12-03] MEDS ORDERED: LORazepam 0.5 MG TABLET PO PRN
[2022-12-03] MEDS: LORazepam 0.5 MG TABLET PO SCH ×4 (05:12→22:41)
[2022-12-03] MEDS: LACTULOSE 20 GM/30 ML UDC (FOR ORAL USE ONLY) PO SCH ×4 (10:10→22:41)
[2022-12-03] MEDS: BUDESONIDE/FORMETEROL FUMARATE 80/4.5 mcg INHALER IH SCH ×2 (10:10→22:41)
[2022-12-03] MEDS: ESCITALOPRAM OXALATE 10 MG TABLET PO SCH (10:10)
[2022-12-03] MEDS: LISINOPRIL 10 MG TABLET PO SCH ×2 (10:10→22:40)
[2022-12-03] MEDS: METHOCARBAMOL 500 MG TABLET PO PRN (10:10)
[2022-12-03] MEDS: amLODIPine BESYLATE 10 MG TABLET (FP) PO SCH (10:10)
[2022-12-03] MEDS: PRENATAL VITAMINS W/ FOLIC ACID TABLET (FP) PO SCH (10:10)
[2022-12-03] MEDS: PANTOPRAZOLE 20 MG TABLET PO SCH (10:11)
[2022-12-03] MEDS: ALBUTEROL SO4 HFA INHALER IH PRN (17:42)
[2022-12-03] MEDS: THIAMINE HCL 100 MG TABLET (FP) PO SCH (22:40)
[2022-12-03] MEDS: BENZOCAINE 28 GM HEMORRHOIDAL OINTMENT RC SCH (22:40)
[2022-12-03] MEDS: MELATONIN 5 MG TABLETS PO SCH (22:40)
[2022-12-04] MEDS ORDERED: LORazepam 0.5 MG TABLET PO ONE (05:00)
[2022-12-04] MEDS: PRENATAL VITAMINS W/ FOLIC ACID TABLET (FP) PO SCH (09:22)
[2022-12-04] MEDS: amLODIPine BESYLATE 10 MG TABLET (FP) PO SCH (09:22)
[2022-12-04] MEDS: BUDESONIDE/FORMETEROL FUMARATE 80/4.5 mcg INHALER IH SCH (09:22)
[2022-12-04] MEDS: PANTOPRAZOLE 20 MG TABLET PO SCH (09:22)
[2022-12-04] MEDS: LACTULOSE 20 GM/30 ML UDC (FOR ORAL USE ONLY) PO SCH (09:22)
[2022-12-04] MEDS: ESCITALOPRAM OXALATE 10 MG TABLET PO SCH (09:22)
[2022-12-04] MEDS: LISINOPRIL 10 MG TABLET PO SCH (09:22)
[2022-12-04 10:13] VITALS: BP 143/73; PULSE 88; RESP 16; TEMP 97.3
== END 2022-12-04 09:34 | disposition home or self-care (01) | DRG 897 ==
LOC: YASAS 13:33 → Y6N 17:44
PROVIDERS: ADMIT Allergy & Immunology; ATTEND Surgery
PROC: HZ2ZZZZ Detoxification Services for Substance Abuse Treatment (ICD-10-PCS; principal; 2022-11-30)
DX: F10.230 Alcohol dependence with withdrawal, uncomplicated (principal); F33.2 Major depressive disorder, recurrent severe without psychotic features; J45.901 Unspecified asthma with (acute) exacerbation; F10.282 Alcohol dependence with alcohol-induced sleep disorder; F10.24 Alcohol dependence with alcohol-induced mood disorder; E78.5 Hyperlipidemia, unspecified; I10 Essential (primary) hypertension; G47.33 Obstructive sleep apnea (adult) (pediatric); M17.0 Bilateral primary osteoarthritis of knee; R94.31 Abnormal electrocardiogram [ECG] [EKG]; Z62.810 Personal history of physical and sexual abuse in childhood; Z91.410 Personal history of adult physical and sexual abuse; Z87.11 Personal history of peptic ulcer disease; Z88.8 Allergy status to other drugs, medicaments and biological substances
CPT/HCPCS: 36415; 71046-TC-FY; 80053; 82140; 85027; 86780; 87811; 93005; 93010; 94640; C9803-CS; U0003; U0005

== ENCOUNTER 2023-07-12 11:40 | Inpatient (IN) | payer OTHER ==
[2023-07-12 12:34] VITALS: BMI 27.3
[2023-07-12] MEDS ORDERED: POLYETHYLENE GLYCOL (HEALTHYLAX) 3350 17 GM PACKET PO PRN (14:29)
[2023-07-12] MEDS ORDERED: ONDANSETRON *ODT* 4 MG TABLET SL PRN (14:29)
[2023-07-12] MEDS ORDERED: BISMUTH SUBSALICYLATE 262 MG/15 ML BTL PO PRN (14:29)
[2023-07-12] MEDS ORDERED: guaiFENesin 600 MG TABLET.ER (FP) PO PRN (14:29)
[2023-07-12] MEDS ORDERED: DICYCLOMINE HCL 10 MG CAPSULE PO PRN (14:29)
[2023-07-12] MEDS ORDERED: BENZOCAINE/MENTHOL (CHLORASEPTIC ) LOZENGE MM PRN (14:29)
[2023-07-12] MEDS ORDERED: BENZONATATE 200 MG CAPSULE PO PRN (14:29)
[2023-07-12] MEDS ORDERED: MAG HYDROX/AL HYDROX/SIMETH 30 ML UNIT-DOSE CUP PO PRN (14:29)
[2023-07-12] MEDS ORDERED: LOPERAMIDE HCL 2 MG CAPSULE PO PRN (14:29)
[2023-07-12] MEDS ORDERED: MAGNESIUM HYDROX 2400MG/30ML ORAL SUSPENSION 30 ML CUP PO PRN (14:29)
[2023-07-12] MEDS ORDERED: ACETAMINOPHEN 325 MG TABLET (FP) PO PRN (14:29)
[2023-07-12] MEDS ORDERED: IBUPROFEN 400 MG TABLET (FP) PO PRN (14:29)
[2023-07-12] MEDS ORDERED: METHOCARBAMOL 500 MG TABLET PO PRN (14:29)
[2023-07-12] MEDS ORDERED: IBUPROFEN 600 MG TABLET (FP) PO PRN (14:29)
[2023-07-12] MEDS ORDERED: diazePAM 5 MG TABLET PO PRN (14:45)
[2023-07-12] MEDS: diazePAM 5 MG TABLET PO SCH ×2 (16:47→22:36)
[2023-07-12] MEDS: ALBUTEROL SO4 2.5/IPRATROPIUM 0.5 INH SOL 3 ML VIAL.NEB. NEB SCH ×2 (16:49→22:52)
[2023-07-12] MEDS: THIAMINE HCL 100 MG TABLET (FP) PO SCH (22:35)
[2023-07-12] MEDS: MELATONIN 5 MG TABLETS PO SCH (22:35)
[2023-07-12] MEDS: BUDESONIDE/FORMETEROL FUMARATE 80/4.5 mcg INHALER IH SCH (22:38)
[2023-07-12] MEDS: ALBUTEROL SO4 HFA INHALER IH PRN (22:39)
[2023-07-13] MEDS: diazePAM 5 MG TABLET PO SCH ×4 (05:43→22:31)
[2023-07-13] MEDS: ALBUTEROL SO4 2.5/IPRATROPIUM 0.5 INH SOL 3 ML VIAL.NEB. NEB SCH ×2 (05:44→10:01)
[2023-07-13] MEDS: PRENATAL VITAMINS W/ FOLIC ACID TABLET (FP) PO SCH (10:01)
[2023-07-13] MEDS: PANTOPRAZOLE 20 MG TABLET PO SCH (10:03)
[2023-07-13] MEDS: BUDESONIDE/FORMETEROL FUMARATE 80/4.5 mcg INHALER IH SCH ×2 (10:03→22:32)
[2023-07-13] MEDS: ESCITALOPRAM OXALATE 10 MG TABLET PO SCH (10:03)
[2023-07-13] MEDS: BENZOCAINE 28 GM HEMORRHOIDAL OINTMENT TP SCH (10:32)
[2023-07-13 11:36] LABS: HEMATOCRIT 34.4 % (32.4-45.2); HEMOGLOBIN 11.1 GM/dL (10.7-15.3); MCH 30.6 pg (25.7-33.7); MCHC 32.3 g/dl (32.0-36.0); MEAN CELL VOLUME 94.9 fl (80-96); MEAN PLT VOLUME 9.1 fl (7.5-11.1); PLATELET COUNT 208 10^3/uL (134-434); RBC 3.62 M/mm3 (3.60-5.2); RDW 15.8 % (11.6-15.6); WHITE BLOOD COUNT 2.7 K/mm3 (4.0-10.0)
[2023-07-13 11:38] LABS: POTASSIUM 3.5 mmol/L (3.5-5.1)
[2023-07-13 12:10] LABS: ALBUMIN 2.9 g/dl (3.4-5.0)
[2023-07-13 12:13] LABS: CALCIUM 9.2 mg/dL (8.5-10.1)
[2023-07-13 12:15] LABS: BILIRUBIN,TOTAL 0.4 mg/dL (0.2-1); CREATININE 0.7 mg/dL (0.55-1.3); TOT PROT 6.3 g/dl (6.4-8.2)
[2023-07-13 12:40] LABS: HIV INTERPRETATION NEGATIVE (NEGATIVE)
[2023-07-13] MEDS: DOCUSATE SODIUM 100 MG CAPSULE (FP) PO SCH (22:31)
[2023-07-13] MEDS: THIAMINE HCL 100 MG TABLET (FP) PO SCH (22:32)
[2023-07-13] MEDS: MELATONIN 5 MG TABLETS PO SCH (23:03)
[2023-07-14] MEDS: diazePAM 5 MG TABLET PO SCH ×3 (05:48→21:58)
[2023-07-14] MEDS: DOCUSATE SODIUM 100 MG CAPSULE (FP) PO SCH ×3 (05:49→21:58)
[2023-07-14] MEDS: BUDESONIDE/FORMETEROL FUMARATE 80/4.5 mcg INHALER IH SCH ×3 (10:12→21:57)
[2023-07-14] MEDS: PRENATAL VITAMINS W/ FOLIC ACID TABLET (FP) PO SCH (10:12)
[2023-07-14] MEDS: PANTOPRAZOLE 20 MG TABLET PO SCH (10:13)
[2023-07-14] MEDS: ESCITALOPRAM OXALATE 10 MG TABLET PO SCH (10:14)
[2023-07-14] MEDS: amLODIPine BESYLATE 5 MG TABLET (FP) PO SCH (12:17)
[2023-07-14] MEDS: MELATONIN 5 MG TABLETS PO SCH (21:57)
[2023-07-14] MEDS: THIAMINE HCL 100 MG TABLET (FP) PO SCH (21:57)
[2023-07-14] MEDS: BENZOCAINE 28 GM HEMORRHOIDAL OINTMENT TP SCH (22:04)
[2023-07-15] MEDS: diazePAM 5 MG TABLET PO SCH ×2 (06:01→17:52)
[2023-07-15] MEDS: DOCUSATE SODIUM 100 MG CAPSULE (FP) PO SCH ×3 (06:04→22:55)
[2023-07-15] MEDS: PRENATAL VITAMINS W/ FOLIC ACID TABLET (FP) PO SCH (10:55)
[2023-07-15] MEDS: ALBUTEROL SO4 HFA INHALER IH PRN ×2 (10:55→11:19)
[2023-07-15] MEDS: PANTOPRAZOLE 20 MG TABLET PO SCH (10:55)
[2023-07-15] MEDS: ESCITALOPRAM OXALATE 10 MG TABLET PO SCH (10:55)
[2023-07-15] MEDS: BUDESONIDE/FORMETEROL FUMARATE 80/4.5 mcg INHALER IH SCH ×2 (10:55→22:56)
[2023-07-15] MEDS: amLODIPine BESYLATE 5 MG TABLET (FP) PO SCH (10:55)
[2023-07-15 21:42] VITALS: RESP 17
[2023-07-15] MEDS: THIAMINE HCL 100 MG TABLET (FP) PO SCH (22:55)
[2023-07-15] MEDS: MELATONIN 5 MG TABLETS PO SCH (22:56)
[2023-07-16] MEDS: BENZOCAINE 28 GM HEMORRHOIDAL OINTMENT TP SCH (01:06)
[2023-07-16] MEDS: DOCUSATE SODIUM 100 MG CAPSULE (FP) PO SCH (06:00)
[2023-07-16] MEDS ORDERED: diazePAM 5 MG TABLET PO ONE (06:00)
[2023-07-16 06:40] VITALS: BP 129/72; PULSE 72; TEMP 97.5
[2023-07-16] MEDS: PANTOPRAZOLE 20 MG TABLET PO SCH (09:47)
[2023-07-16] MEDS: PRENATAL VITAMINS W/ FOLIC ACID TABLET (FP) PO SCH (09:47)
[2023-07-16] MEDS: amLODIPine BESYLATE 5 MG TABLET (FP) PO SCH (09:47)
[2023-07-16] MEDS: ESCITALOPRAM OXALATE 10 MG TABLET PO SCH (09:47)
[2023-07-16] MEDS: BUDESONIDE/FORMETEROL FUMARATE 80/4.5 mcg INHALER IH SCH (09:48)
== END 2023-07-16 09:17 | disposition home or self-care (01) | DRG 897 ==
LOC: YASAS 11:40 → Y6N 15:28
PROVIDERS: ADMIT Allergy & Immunology; ATTEND Allergy & Immunology
PROC: HZ2ZZZZ Detoxification Services for Substance Abuse Treatment (ICD-10-PCS; principal; 2023-07-12)
DX: F10.230 Alcohol dependence with withdrawal, uncomplicated (principal); E78.5 Hyperlipidemia, unspecified; I10 Essential (primary) hypertension; K21.9 Gastro-esophageal reflux disease without esophagitis; M17.0 Bilateral primary osteoarthritis of knee; Z87.09 Personal history of other diseases of the respiratory system; Z88.8 Allergy status to other drugs, medicaments and biological substances
CPT/HCPCS: 36415; 80053; 85027; 86780; 87389; 87635; 87811

== ENCOUNTER 2023-09-02 10:07 | Inpatient (IN) | payer OTHER ==
[2023-09-02 10:32] VITALS: BMI 28.9
[2023-09-02] MEDS ORDERED: ALBUTEROL SO4 HFA INHALER IH PRN (10:53)
[2023-09-02] MEDS ORDERED: PANTOPRAZOLE 20 MG TABLET PO SCH (11:00)
[2023-09-02] MEDS ORDERED: METHOCARBAMOL 500 MG TABLET PO PRN (11:03)
[2023-09-02] MEDS ORDERED: IBUPROFEN 400 MG TABLET (FP) PO PRN (11:03)
[2023-09-02] MEDS ORDERED: IBUPROFEN 600 MG TABLET (FP) PO PRN (11:03)
[2023-09-02] MEDS ORDERED: BISMUTH SUBSALICYLATE 262 MG/15 ML BTL PO PRN (11:03)
[2023-09-02] MEDS ORDERED: BENZOCAINE/MENTHOL (CHLORASEPTIC ) LOZENGE MM PRN (11:03)
[2023-09-02] MEDS ORDERED: ACETAMINOPHEN 325 MG TABLET (FP) PO PRN (11:03)
[2023-09-02] MEDS ORDERED: LOPERAMIDE HCL 2 MG CAPSULE PO PRN (11:03)
[2023-09-02] MEDS ORDERED: BENZONATATE 200 MG CAPSULE PO PRN (11:03)
[2023-09-02] MEDS ORDERED: DICYCLOMINE HCL 10 MG CAPSULE PO PRN (11:03)
[2023-09-02] MEDS ORDERED: MAGNESIUM HYDROX 2400MG/30ML ORAL SUSPENSION 30 ML CUP PO PRN (11:03)
[2023-09-02] MEDS ORDERED: ONDANSETRON *ODT* 4 MG TABLET SL PRN (11:03)
[2023-09-02] MEDS ORDERED: POLYETHYLENE GLYCOL (HEALTHYLAX) 3350 17 GM PACKET PO PRN (11:03)
[2023-09-02] MEDS ORDERED: guaiFENesin 600 MG TABLET.ER (FP) PO PRN (11:03)
[2023-09-02] MEDS ORDERED: amLODIPine BESYLATE 5 MG TABLET (FP) ONE (12:00)
[2023-09-02] MEDS: amLODIPine BESYLATE 5 MG TABLET (FP) PO SCH (12:05)
[2023-09-02] MEDS: BUDESONIDE/FORMETEROL FUMARATE 80/4.5 mcg INHALER IH SCH ×2 (13:12→23:42)
[2023-09-02] MEDS: PANTOPRAZOLE 20 MG TABLET PO SCH (13:14)
[2023-09-02] MEDS: MAG HYDROX/AL HYDROX/SIMETH 30 ML UNIT-DOSE CUP PO PRN (17:56)
[2023-09-02] MEDS: MELATONIN 5 MG TABLETS PO SCH (23:42)
[2023-09-02] MEDS: THIAMINE HCL 100 MG TABLET (FP) PO SCH (23:43)
[2023-09-03] MEDS: MAG HYDROX/AL HYDROX/SIMETH 30 ML UNIT-DOSE CUP PO PRN (08:29)
[2023-09-03] MEDS: PRENATAL VITAMINS W/ FOLIC ACID TABLET (FP) PO SCH (10:20)
[2023-09-03] MEDS: ESCITALOPRAM OXALATE 10 MG TABLET PO SCH (10:21)
[2023-09-03] MEDS: PANTOPRAZOLE 20 MG TABLET PO SCH (10:21)
[2023-09-03] MEDS: amLODIPine BESYLATE 5 MG TABLET (FP) PO SCH (10:21)
[2023-09-03] MEDS: BUDESONIDE/FORMETEROL FUMARATE 80/4.5 mcg INHALER IH SCH ×2 (10:21→22:59)
[2023-09-03 11:50] LABS: HEMOGLOBIN 11.4 GM/dL (10.7-15.3); MCH 31.3 pg (25.7-33.7); MCHC 32.7 g/dl (32.0-36.0); MEAN CELL VOLUME 95.7 fl (80-96); MEAN PLT VOLUME 9.4 fl (7.5-11.1); PLATELET COUNT 232 10^3/uL (134-434); RBC 3.66 M/mm3 (3.60-5.2); RDW 16.7 % (11.6-15.6)
[2023-09-03 11:59] LABS: POTASSIUM 3.9 mmol/L (3.5-5.1)
[2023-09-03 12:02] LABS: ALBUMIN 3.2 g/dl (3.4-5.0)
[2023-09-03 12:05] LABS: BLOOD UREA NITROGEN 14.6 mg/dL (7-18); CREATININE 0.7 mg/dL (0.55-1.3)
[2023-09-03 12:07] LABS: BILIRUBIN,TOTAL 0.4 mg/dL (0.2-1); TOT PROT 6.8 g/dl (6.4-8.2)
[2023-09-03] MEDS ORDERED: diazePAM 5 MG TABLET PO PRN (12:12)
[2023-09-03 12:50] LABS: HIV INTERPRETATION NEGATIVE (NEGATIVE)
[2023-09-03] MEDS ORDERED: COLLOIDAL OATMEAL 1 BAR EACH TP PRN (15:30)
[2023-09-03] MEDS: diazePAM 5 MG TABLET PO SCH ×2 (17:06→22:59)
[2023-09-03] MEDS: THIAMINE HCL 100 MG TABLET (FP) PO SCH (22:59)
[2023-09-03] MEDS: MELATONIN 5 MG TABLETS PO SCH (22:59)
[2023-09-04] MEDS: diazePAM 5 MG TABLET PO SCH ×3 (05:35→22:41)
[2023-09-04] MEDS: PRENATAL VITAMINS W/ FOLIC ACID TABLET (FP) PO SCH (09:55)
[2023-09-04] MEDS: BUDESONIDE/FORMETEROL FUMARATE 80/4.5 mcg INHALER IH SCH ×2 (09:56→22:41)
[2023-09-04] MEDS: PANTOPRAZOLE 20 MG TABLET PO SCH (09:56)
[2023-09-04] MEDS: amLODIPine BESYLATE 5 MG TABLET (FP) PO SCH (09:56)
[2023-09-04] MEDS: ESCITALOPRAM OXALATE 10 MG TABLET PO SCH (09:56)
[2023-09-04] MEDS: DOCUSATE SODIUM 100 MG CAPSULE (FP) PO SCH ×2 (13:21→22:41)
[2023-09-04] MEDS: MELATONIN 5 MG TABLETS PO SCH (22:41)
[2023-09-04] MEDS: THIAMINE HCL 100 MG TABLET (FP) PO SCH (22:41)
[2023-09-04] MEDS: BENZOCAINE 28 GM HEMORRHOIDAL OINTMENT RC SCH (22:42)
[2023-09-05] MEDS: diazePAM 5 MG TABLET PO SCH ×2 (05:46→17:36)
[2023-09-05] MEDS: DOCUSATE SODIUM 100 MG CAPSULE (FP) PO SCH ×3 (05:49→22:36)
[2023-09-05] MEDS: PRENATAL VITAMINS W/ FOLIC ACID TABLET (FP) PO SCH (09:31)
[2023-09-05] MEDS: amLODIPine BESYLATE 5 MG TABLET (FP) PO SCH (09:32)
[2023-09-05] MEDS: ESCITALOPRAM OXALATE 10 MG TABLET PO SCH (09:32)
[2023-09-05] MEDS: PANTOPRAZOLE 20 MG TABLET PO SCH (09:32)
[2023-09-05] MEDS: BUDESONIDE/FORMETEROL FUMARATE 80/4.5 mcg INHALER IH SCH ×2 (09:32→22:36)
[2023-09-05] MEDS: MAG HYDROX/AL HYDROX/SIMETH 30 ML UNIT-DOSE CUP PO PRN (15:29)
[2023-09-05 20:49] VITALS: RESP 18
[2023-09-05] MEDS: THIAMINE HCL 100 MG TABLET (FP) PO SCH (22:36)
[2023-09-05] MEDS: MELATONIN 5 MG TABLETS PO SCH (22:36)
[2023-09-05] MEDS: BENZOCAINE 28 GM HEMORRHOIDAL OINTMENT RC SCH (22:40)
[2023-09-06] MEDS: DOCUSATE SODIUM 100 MG CAPSULE (FP) PO SCH ×2 (05:35→13:29)
[2023-09-06] MEDS ORDERED: diazePAM 5 MG TABLET PO ONE (06:00)
[2023-09-06 07:03] VITALS: TEMP 97.8
[2023-09-06] MEDS: PANTOPRAZOLE 20 MG TABLET PO SCH (09:36)
[2023-09-06] MEDS: PRENATAL VITAMINS W/ FOLIC ACID TABLET (FP) PO SCH (09:36)
[2023-09-06] MEDS: ESCITALOPRAM OXALATE 10 MG TABLET PO SCH (09:36)
[2023-09-06] MEDS: amLODIPine BESYLATE 5 MG TABLET (FP) PO SCH (09:36)
[2023-09-06] MEDS: BUDESONIDE/FORMETEROL FUMARATE 80/4.5 mcg INHALER IH SCH (09:37)
[2023-09-06] MEDS: MAG HYDROX/AL HYDROX/SIMETH 30 ML UNIT-DOSE CUP PO PRN (11:20)
[2023-09-06 12:38] VITALS: BP 132/68; PULSE 90
== END 2023-09-06 14:35 | disposition home or self-care (01) | DRG 897 ==
LOC: YASAS 10:07 → Y6N 12:25
PROVIDERS: ADMIT Allergy & Immunology; ATTEND Surgery
PROC: HZ2ZZZZ Detoxification Services for Substance Abuse Treatment (ICD-10-PCS; principal; 2023-09-02)
DX: F10.230 Alcohol dependence with withdrawal, uncomplicated (principal); F33.3 Major depressive disorder, recurrent, severe with psychotic symptoms; F17.210 Nicotine dependence, cigarettes, uncomplicated; F10.24 Alcohol dependence with alcohol-induced mood disorder; G47.33 Obstructive sleep apnea (adult) (pediatric); I10 Essential (primary) hypertension; J45.909 Unspecified asthma, uncomplicated; K21.9 Gastro-esophageal reflux disease without esophagitis; M17.0 Bilateral primary osteoarthritis of knee; Z62.810 Personal history of physical and sexual abuse in childhood; Z87.11 Personal history of peptic ulcer disease; Z88.8 Allergy status to other drugs, medicaments and biological substances
CPT/HCPCS: 36415; 80053; 85027; 86780; 87389; 87635; 87811

== ENCOUNTER 2024-01-17 12:13 | Inpatient (IN) | payer OTHER ==
[2024-01-17 13:06] VITALS: BMI 30.9
[2024-01-17] MEDS ORDERED: ONDANSETRON *ODT* 4 MG TABLET SL PRN (14:34)
[2024-01-17] MEDS ORDERED: POLYETHYLENE GLYCOL (HEALTHYLAX) 3350 17 GM PACKET PO PRN (14:34)
[2024-01-17] MEDS ORDERED: BISMUTH SUBSALICYLATE 524 MG/30 ML PO PRN (14:34)
[2024-01-17] MEDS ORDERED: IBUPROFEN 400 MG TABLET (FP) PO PRN (14:34)
[2024-01-17] MEDS ORDERED: diazePAM 5 MG TABLET PO PRN (14:34)
[2024-01-17] MEDS ORDERED: BENZONATATE 200 MG CAPSULE PO PRN (14:34)
[2024-01-17] MEDS ORDERED: ACETAMINOPHEN 325 MG TABLET (FP) PO PRN (14:34)
[2024-01-17] MEDS ORDERED: NALOXONE HCL 0.4 MG/ML VIAL IM PRN (14:34)
[2024-01-17] MEDS ORDERED: DICYCLOMINE HCL 10 MG CAPSULE PO PRN (14:34)
[2024-01-17] MEDS ORDERED: hydrOXYzine PAMOATE 25 MG CAPSULE (FP) PO PRN (14:34)
[2024-01-17] MEDS ORDERED: guaiFENesin 600 MG TABLET.ER (FP) PO PRN (14:34)
[2024-01-17] MEDS ORDERED: METHOCARBAMOL 500 MG TABLET PO PRN (14:34)
[2024-01-17] MEDS ORDERED: LOPERAMIDE HCL 2 MG CAPSULE PO PRN (14:34)
[2024-01-17] MEDS ORDERED: BENZOCAINE/MENTHOL (CHLORASEPTIC ) LOZENGE MM PRN (14:34)
[2024-01-17] MEDS ORDERED: NALOXONE HCL (KLOXXADO) 8 MG SPRAY NS PRN (14:34)
[2024-01-17] MEDS ORDERED: IBUPROFEN 600 MG TABLET (FP) PO PRN (14:34)
[2024-01-17] MEDS: SODIUM PHOSPHATE/NA BIPHOS 133 ML ENEMA RC ONE (15:43)
[2024-01-17] MEDS: MAGNESIUM HYDROX 2400MG/30ML ORAL SUSPENSION 30 ML CUP PO PRN (16:55)
[2024-01-17] MEDS: diazePAM 5 MG TABLET PO SCH (16:55)
[2024-01-17] MEDS: PRENATAL VITAMINS W/ FOLIC ACID TABLET (FP) PO SCH (17:42)
[2024-01-17] MEDS: THIAMINE HCL 100 MG TABLET (FP) PO SCH (22:29)
[2024-01-17] MEDS: MELATONIN 5 MG TABLETS PO SCH (22:29)
[2024-01-18] MEDS: amLODIPine BESYLATE 2.5 MG TABLET (FP) PO SCH (14:29)
[2024-01-18] MEDS: HYDROCORTISONE 2.5% TOPICAL CREAM 30 GM TUBE TP SCH (22:10)
[2024-01-19] MEDS: diazePAM 5 MG TABLET PO SCH (06:23)
[2024-01-19] MEDS: MAG HYDROX/AL HYDROX/SIMETH 30 ML UNIT-DOSE CUP PO PRN (10:40)
[2024-01-19] MEDS ORDERED: BENZOCAINE 28 GM HEMORRHOIDAL OINTMENT PR SCH (13:15)
[2024-01-19] MEDS: BENZOCAINE 28 GM HEMORRHOIDAL OINTMENT RC SCH (22:20)
[2024-01-20] MEDS: diazePAM 5 MG TABLET PO SCH (05:17)
[2024-01-20] MEDS: amLODIPine BESYLATE 5 MG TABLET (FP) PO SCH (10:16)
[2024-01-20] MEDS ORDERED: ALBUTEROL SO4 HFA INHALER IH PRN (10:55)
[2024-01-20] MEDS: ESCITALOPRAM OXALATE 10 MG TABLET PO SCH (11:09)
[2024-01-20] MEDS: BUDESONIDE/FORMETEROL FUMARATE 160/4.5 mcg INHALER IH SCH (22:51)
[2024-01-21] MEDS: diazePAM 5 MG TABLET PO ONE (06:07)
[2024-01-21 08:01] VITALS: BP 139/73; PULSE 77; RESP 16; TEMP 97.7
[2024-01-21] MEDS ORDERED: amLODIPine BESYLATE 10 MG TABLET (FP) PO SCH (10:00)
[2024-01-21] MEDS ORDERED: FAMOTIDINE 20 MG TABLET PO SCH (10:00)
== END 2024-01-21 08:35 | disposition home or self-care (01) | DRG 897 ==
LOC: YASAS 12:13 → Y6N 15:00
PROVIDERS: ADMIT Allergy & Immunology; ATTEND Surgery
PROC: HZ2ZZZZ Detoxification Services for Substance Abuse Treatment (ICD-10-PCS; principal; 2024-01-17)
DX: F10.230 Alcohol dependence with withdrawal, uncomplicated (principal); F33.1 Major depressive disorder, recurrent, moderate; F10.24 Alcohol dependence with alcohol-induced mood disorder; G47.33 Obstructive sleep apnea (adult) (pediatric); I10 Essential (primary) hypertension; E78.5 Hyperlipidemia, unspecified; J45.909 Unspecified asthma, uncomplicated; K21.9 Gastro-esophageal reflux disease without esophagitis; M17.0 Bilateral primary osteoarthritis of knee; Z62.810 Personal history of physical and sexual abuse in childhood; Z91.410 Personal history of adult physical and sexual abuse; Z63.0 Problems in relationship with spouse or partner; Z63.8 Other specified problems related to primary support group; Z88.8 Allergy status to other drugs, medicaments and biological substances
CPT/HCPCS: 80305; 87635

== ENCOUNTER 2024-05-28 11:43 | Inpatient (IN) | payer OTHER ==
[2024-05-28 11:59] VITALS: BMI 30.9
[2024-05-28] MEDS ORDERED: ALBUTEROL SO4 HFA INHALER IH PRN (12:35)
[2024-05-28] MEDS ORDERED: diazePAM 5 MG TABLET PO PRN (12:38)
[2024-05-28] MEDS ORDERED: LOPERAMIDE HCL 2 MG CAPSULE PO PRN (12:56)
[2024-05-28] MEDS ORDERED: MAG HYDROX/AL HYDROX/SIMETH 30 ML UNIT-DOSE CUP PO PRN (12:56)
[2024-05-28] MEDS ORDERED: IBUPROFEN 400 MG TABLET (FP) PO PRN (12:56)
[2024-05-28] MEDS ORDERED: MAGNESIUM HYDROX 2400MG/30ML ORAL SUSPENSION 30 ML CUP PO PRN (12:56)
[2024-05-28] MEDS ORDERED: BENZOCAINE/MENTHOL (CHLORASEPTIC ) LOZENGE MM PRN (12:56)
[2024-05-28] MEDS ORDERED: ACETAMINOPHEN 325 MG TABLET (FP) PO PRN (12:56)
[2024-05-28] MEDS ORDERED: guaiFENesin 600 MG TABLET.ER (FP) PO PRN (12:56)
[2024-05-28] MEDS ORDERED: BENZONATATE 200 MG CAPSULE PO PRN (12:56)
[2024-05-28] MEDS ORDERED: POLYETHYLENE GLYCOL (HEALTHYLAX) 3350 17 GM PACKET PO PRN (12:56)
[2024-05-28] MEDS ORDERED: IBUPROFEN 600 MG TABLET (FP) PO PRN (12:56)
[2024-05-28] MEDS: ALBUTEROL SO4 2.5/IPRATROPIUM 0.5 INH SOL 3 ML VIAL.NEB. NEB ONE (13:30)
[2024-05-28] MEDS: diazePAM 5 MG TABLET PO SCH (17:45)
[2024-05-28] MEDS: ONDANSETRON *ODT* 4 MG TABLET SL PRN (21:02)
[2024-05-28] MEDS: MELATONIN 5 MG TABLETS PO SCH (22:46)
[2024-05-28] MEDS: THIAMINE 100 MG TABLET PO SCH (22:46)
[2024-05-28] MEDS: BUDESONIDE/FORMETEROL FUMARATE 160/4.5 mcg INHALER IH SCH (22:49)
[2024-05-29] MEDS: PRENATAL VITAMINS W/ FOLIC ACID TABLET (FP) PO SCH (10:37)
[2024-05-29] MEDS: ESCITALOPRAM OXALATE 10 MG TABLET PO SCH (11:15)
[2024-05-30] MEDS: diazePAM 5 MG TABLET PO SCH (06:11)
[2024-05-30] MEDS ORDERED: DOCUSATE SODIUM 100 MG CAPSULE (FP) PO PRN (10:08)
[2024-05-30] MEDS: BENZOCAINE 28 GM HEMORRHOIDAL OINTMENT RC PRN (13:35)
[2024-05-30] MEDS ORDERED: diazePAM 5 MG TABLET PO PRN (15:23)
[2024-05-30] MEDS: FAMOTIDINE 20 MG TABLET PO SCH (17:20)
[2024-05-30 21:18] VITALS: RESP 16; TEMP 97.1
[2024-05-31 06:15] VITALS: BP 138/66; PULSE 74
[2024-05-31] MEDS: diazePAM 5 MG TABLET PO SCH (06:46)
[2024-06-01] MEDS ORDERED: diazePAM 5 MG TABLET PO ONE (06:00)
== END 2024-05-31 08:37 | disposition home or self-care (01) | DRG 897 ==
LOC: YASAS 11:43 → Y6N 13:33
PROVIDERS: ADMIT Allergy & Immunology; ATTEND Surgery
PROC: HZ2ZZZZ Detoxification Services for Substance Abuse Treatment (ICD-10-PCS; principal; 2024-05-28)
DX: F10.230 Alcohol dependence with withdrawal, uncomplicated (principal); F33.1 Major depressive disorder, recurrent, moderate; F10.24 Alcohol dependence with alcohol-induced mood disorder; J45.909 Unspecified asthma, uncomplicated; K21.9 Gastro-esophageal reflux disease without esophagitis; G47.33 Obstructive sleep apnea (adult) (pediatric); K64.9 Unspecified hemorrhoids; M17.0 Bilateral primary osteoarthritis of knee; Z62.810 Personal history of physical and sexual abuse in childhood; Z91.410 Personal history of adult physical and sexual abuse; Z63.8 Other specified problems related to primary support group; Z63.0 Problems in relationship with spouse or partner; Z87.11 Personal history of peptic ulcer disease; Z88.8 Allergy status to other drugs, medicaments and biological substances
CPT/HCPCS: 80305; 80307; Q0162

== ENCOUNTER 2024-09-06 10:23 | Inpatient (IN) | payer OTHER ==
[2024-09-06 10:51] VITALS: BMI 31.4
[2024-09-06] MEDS ORDERED: NALOXONE (NYS OPIOID OVERDOSE PROGRAM) 4 MG/0.1 ML SPRAY NS PRN (11:50)
[2024-09-06] MEDS ORDERED: IBUPROFEN 600 MG TABLET (FP) PO PRN (11:50)
[2024-09-06] MEDS ORDERED: IBUPROFEN 400 MG TABLET (FP) PO PRN (11:50)
[2024-09-06] MEDS ORDERED: guaiFENesin 600 MG TABLET.ER (FP) PO PRN (11:50)
[2024-09-06] MEDS ORDERED: LOPERAMIDE HCL 2 MG CAPSULE PO PRN (11:50)
[2024-09-06] MEDS ORDERED: BENZONATATE 200 MG CAPSULE PO PRN (11:50)
[2024-09-06] MEDS ORDERED: BENZOCAINE/MENTHOL (CHLORASEPTIC ) LOZENGE MM PRN (11:50)
[2024-09-06] MEDS ORDERED: MAG HYDROX/AL HYDROX/SIMETH 30 ML UNIT-DOSE CUP PO PRN (11:50)
[2024-09-06] MEDS ORDERED: NALOXONE (NARCAN) HCL 4 MG/0.1 ML SPRAY NS PRN (11:50)
[2024-09-06] MEDS ORDERED: MAGNESIUM HYDROX 2400MG/30ML ORAL SUSPENSION 30 ML CUP PO PRN (11:50)
[2024-09-06] MEDS ORDERED: POLYETHYLENE GLYCOL (HEALTHYLAX) 3350 17 GM PACKET PO PRN (11:50)
[2024-09-06] MEDS ORDERED: diazePAM 5 MG TABLET PO PRN (11:54)
[2024-09-06] MEDS ORDERED: diphenhydrAMINE HCL 50 MG CAPSULE PO PRN (14:42)
[2024-09-06] MEDS: diazePAM 5 MG TABLET PO SCH (17:22)
[2024-09-06] MEDS: ACETAMINOPHEN 325 MG TABLET (FP) PO PRN (17:22)
[2024-09-06] MEDS ORDERED: MELATONIN 5 MG TABLETS PO SCH (22:00)
[2024-09-06] MEDS: THIAMINE 100 MG TABLET PO SCH (22:17)
[2024-09-06] MEDS ORDERED: ALBUTEROL SO4 HFA INHALER IH PRN (22:48)
[2024-09-06] MEDS ORDERED: BUDESONIDE/FORMETEROL FUMARATE 160/4.5 mcg INHALER IH PRN (22:48)
[2024-09-07 06:46] VITALS: RESP 18
[2024-09-07] MEDS: PRENATAL VITAMINS W/ FOLIC ACID TABLET (FP) PO SCH (10:40)
[2024-09-07] MEDS: FAMOTIDINE 20 MG TABLET PO SCH (10:40)
[2024-09-07] MEDS ORDERED: BENZOCAINE 28 GM HEMORRHOIDAL OINTMENT RC PRN (11:37)
[2024-09-07] MEDS ORDERED: COLLOIDAL OATMEAL 1 BAR EACH TP PRN (11:38)
[2024-09-07] MEDS: amLODIPine BESYLATE 5 MG TABLET (FP) PO ONE (12:02)
[2024-09-07] MEDS: ONDANSETRON *ODT* 4 MG TABLET SL PRN (12:02)
[2024-09-07] MEDS: PETROLATUM, WHITE 30 GM TUBE TP SCH (12:04)
[2024-09-07 14:39] LABS: HEMATOCRIT 47.4 % (32.4-45.2); HEMOGLOBIN 16.1 GM/dL (10.7-15.3); MCH 31.4 pg (25.7-33.7); MCHC 33.9 g/dl (32.0-36.0); MEAN CELL VOLUME 92.6 fl (80-96); PLATELET COUNT 374 10^3/uL (134-434); RBC 5.12 M/mm3 (3.60-5.2); RDW 15.3 % (11.6-15.6); WHITE BLOOD COUNT 7.8 K/mm3 (4.0-10.0)
[2024-09-07 15:09] VITALS: BP 125/64; PULSE 86; TEMP 96.6
[2024-09-07 15:19] LABS: POTASSIUM 3.8 mmol/L (3.5-5.1)
[2024-09-07 15:26] LABS: ALBUMIN 4.1 g/dl (3.4-5.0); BLOOD UREA NITROGEN 15.9 mg/dL (7-18)
[2024-09-07 15:29] LABS: BILIRUBIN,TOTAL 0.6 mg/dL (0.2-1); CREATININE 0.9 mg/dL (0.55-1.3)
[2024-09-07 15:31] LABS: TOT PROT 7.8 g/dl (6.4-8.2)
[2024-09-08] MEDS ORDERED: diazePAM 5 MG TABLET PO SCH (06:00)
[2024-09-09] MEDS ORDERED: diazePAM 5 MG TABLET PO SCH (06:00)
[2024-09-10] MEDS ORDERED: diazePAM 5 MG TABLET PO ONE (06:00)
== END 2024-09-07 16:45 | disposition left against medical advice (07) | DRG 894 ==
LOC: YASAS 10:23 → Y6N 12:09
PROVIDERS: ADMIT Allergy & Immunology; ATTEND Surgery
PROC: HZ2ZZZZ Detoxification Services for Substance Abuse Treatment (ICD-10-PCS; principal; 2024-09-06)
DX: F10.282 Alcohol dependence with alcohol-induced sleep disorder (principal); F10.24 Alcohol dependence with alcohol-induced mood disorder; F32.A Depression, unspecified; E78.5 Hyperlipidemia, unspecified; G47.30 Sleep apnea, unspecified; I10 Essential (primary) hypertension; J45.909 Unspecified asthma, uncomplicated; M17.0 Bilateral primary osteoarthritis of knee; K64.9 Unspecified hemorrhoids; Z62.810 Personal history of physical and sexual abuse in childhood; Z63.8 Other specified problems related to primary support group; Z87.11 Personal history of peptic ulcer disease; Z88.8 Allergy status to other drugs, medicaments and biological substances
CPT/HCPCS: 36415; 80053; 80305; 80307; 85027; 86780; 93005; 93010; Q0162

== ENCOUNTER 2024-10-10 16:19 | Inpatient (IN) | payer OTHER ==
[2024-10-10 16:56] VITALS: BMI 29.8
[2024-10-10] MEDS ORDERED: ALBUTEROL SO4 HFA INHALER IH PRN (17:15)
[2024-10-10] MEDS ORDERED: BUDESONIDE/FORMETEROL FUMARATE 160/4.5 mcg INHALER IH PRN (17:15)
[2024-10-10] MEDS ORDERED: diazePAM 5 MG TABLET PO PRN (17:17)
[2024-10-10] MEDS ORDERED: ACETAMINOPHEN 325 MG TABLET (FP) PO PRN (17:24)
[2024-10-10] MEDS ORDERED: guaiFENesin 600 MG TABLET.ER (FP) PO PRN (17:24)
[2024-10-10] MEDS ORDERED: POLYETHYLENE GLYCOL (HEALTHYLAX) 3350 17 GM PACKET PO PRN (17:24)
[2024-10-10] MEDS ORDERED: IBUPROFEN 400 MG TABLET (FP) PO PRN (17:24)
[2024-10-10] MEDS ORDERED: BENZONATATE 200 MG CAPSULE PO PRN (17:24)
[2024-10-10] MEDS ORDERED: ONDANSETRON *ODT* 4 MG TABLET SL PRN (17:24)
[2024-10-10] MEDS ORDERED: LOPERAMIDE HCL 2 MG CAPSULE PO PRN (17:24)
[2024-10-10] MEDS ORDERED: BENZOCAINE/MENTHOL (CHLORASEPTIC ) LOZENGE MM PRN (17:24)
[2024-10-10] MEDS ORDERED: MAGNESIUM HYDROX 2400MG/30ML ORAL SUSPENSION 30 ML CUP PO PRN (17:24)
[2024-10-10] MEDS ORDERED: IBUPROFEN 600 MG TABLET (FP) PO PRN (17:24)
[2024-10-10] MEDS ORDERED: BISMUTH SUBSALICYLATE 524 MG/30 ML PO PRN (17:24)
[2024-10-10] MEDS ORDERED: MAG HYDROX/AL HYDROX/SIMETH 30 ML UNIT-DOSE CUP PO PRN (17:24)
[2024-10-10] MEDS: MELATONIN 5 MG TABLETS PO SCH (21:49)
[2024-10-10] MEDS: THIAMINE 100 MG TABLET PO SCH (21:49)
[2024-10-10] MEDS: diazePAM 5 MG TABLET PO SCH (22:04)
[2024-10-11] MEDS: FAMOTIDINE 20 MG TABLET PO SCH (07:38)
[2024-10-11] MEDS: PRENATAL VITAMINS W/ FOLIC ACID TABLET (FP) PO SCH (09:53)
[2024-10-11] MEDS: ESCITALOPRAM OXALATE 10 MG TABLET PO SCH (11:51)
[2024-10-11 12:51] LABS: HEMATOCRIT 36.2 % (32.4-45.2); HEMOGLOBIN 12.1 GM/dL (10.7-15.3); MCH 31.9 pg (25.7-33.7); MCHC 33.4 g/dl (32.0-36.0); MEAN CELL VOLUME 95.5 fl (80-96); MEAN PLT VOLUME 8.8 fl (7.5-11.1); PLATELET COUNT 232 10^3/uL (134-434); RBC 3.79 M/mm3 (3.60-5.2); RDW 16.3 % (11.6-15.6); WHITE BLOOD COUNT 3.9 K/mm3 (4.0-10.0)
[2024-10-11 12:56] LABS: CHLORIDE 107 mmol/L (98-107); POTASSIUM 4.5 mmol/L (3.5-5.1); SODIUM 140 mmol/L (136-145)
[2024-10-11 13:12] LABS: ALBUMIN 3.4 g/dl (3.4-5.0); CALCIUM 9.4 mg/dL (8.5-10.1); GLUCOSE,RANDOM 71 mg/dL (74-106)
[2024-10-11 13:14] LABS: ANION GAP 5 mmol/L (4-13); BLOOD UREA NITROGEN 12.7 mg/dL (7-18); CO2 28 mmol/L (21-32); SGOT/AST 16 U/L (15-37); SGPT/ALT 27 U/L (13-61)
[2024-10-11 13:15] LABS: CREATININE 0.8 mg/dL (0.55-1.3)
[2024-10-11 13:16] LABS: BILIRUBIN,TOTAL 0.3 mg/dL (0.2-1)
[2024-10-11 13:23] LABS: ALK PHOS 68 U/L (45-117)
[2024-10-11] MEDS: PHENYLEPHRINE HCL/COCOA BUTTER 1 EACH SUPP.RECT RC SCH (13:47)
[2024-10-11] MEDS: DOCUSATE SODIUM 100 MG CAPSULE (FP) PO SCH (13:48)
[2024-10-11] MEDS ORDERED: diphenhydrAMINE HCL 50 MG CAPSULE PO PRN (22:00)
[2024-10-11] MEDS: diazePAM 5 MG TABLET PO ONE (22:02)
[2024-10-11] MEDS: SENNOSIDES 8.6MG TABLET (FP) PO SCH (23:02)
[2024-10-12] MEDS: diazePAM 5 MG TABLET PO SCH (05:46)
[2024-10-12 08:54] VITALS: BP 147/75; PULSE 71; RESP 18; TEMP 97.8
[2024-10-12] MEDS: NALOXONE (NYS OPIOID OVERDOSE PROGRAM) 4 MG/0.1 ML SPRAY NS SCH (10:00)
[2024-10-13] MEDS ORDERED: diazePAM 5 MG TABLET PO SCH (06:00)
== END 2024-10-12 10:02 | disposition left against medical advice (07) | DRG 894 ==
LOC: YASAS 16:19 → Y6N 20:37
PROVIDERS: ADMIT Allergy & Immunology; ATTEND Surgery
PROC: HZ2ZZZZ Detoxification Services for Substance Abuse Treatment (ICD-10-PCS; principal; 2024-10-10)
DX: F10.230 Alcohol dependence with withdrawal, uncomplicated (principal); F33.1 Major depressive disorder, recurrent, moderate; F10.24 Alcohol dependence with alcohol-induced mood disorder; I10 Essential (primary) hypertension; J45.909 Unspecified asthma, uncomplicated; K21.9 Gastro-esophageal reflux disease without esophagitis; K64.9 Unspecified hemorrhoids; G47.33 Obstructive sleep apnea (adult) (pediatric); M17.0 Bilateral primary osteoarthritis of knee; Z62.810 Personal history of physical and sexual abuse in childhood; Z91.410 Personal history of adult physical and sexual abuse; Z63.0 Problems in relationship with spouse or partner; Z63.8 Other specified problems related to primary support group; Z88.8 Allergy status to other drugs, medicaments and biological substances
CPT/HCPCS: 36415; 80053; 80305; 80307; 85027

== ENCOUNTER 2025-02-11 15:33 | Inpatient (IN) | payer OTHER ==
[2025-02-11] MEDS ORDERED: IBUPROFEN 600 MG TABLET (FP) PO PRN (16:24)
[2025-02-11] MEDS ORDERED: LOPERAMIDE HCL 2 MG CAPSULE PO PRN (16:24)
[2025-02-11] MEDS ORDERED: ACETAMINOPHEN 325 MG TABLET (FP) PO PRN (16:24)
[2025-02-11] MEDS ORDERED: BENZOCAINE/MENTHOL (CHLORASEPTIC ) LOZENGE MM PRN (16:24)
[2025-02-11] MEDS ORDERED: DICYCLOMINE HCL 10 MG CAPSULE PO PRN (16:24)
[2025-02-11] MEDS ORDERED: POLYETHYLENE GLYCOL (HEALTHYLAX) 3350 17 GM PACKET PO PRN (16:24)
[2025-02-11] MEDS ORDERED: IBUPROFEN 400 MG TABLET (FP) PO PRN (16:24)
[2025-02-11] MEDS ORDERED: hydrOXYzine PAMOATE 25 MG CAPSULE (FP) PO PRN (16:24)
[2025-02-11] MEDS ORDERED: guaiFENesin 600 MG TABLET.ER (FP) PO PRN (16:24)
[2025-02-11] MEDS ORDERED: NALOXONE (NARCAN) HCL 4 MG/0.1 ML SPRAY NS PRN (16:24)
[2025-02-11] MEDS ORDERED: BISMUTH SUBSALICYLATE 524 MG/30 ML PO PRN (16:24)
[2025-02-11] MEDS ORDERED: BENZONATATE 200 MG CAPSULE PO PRN (16:24)
[2025-02-11] MEDS ORDERED: NICOTINE POLACRILEX 4 MG GUM BUC PRN (16:24)
[2025-02-11] MEDS ORDERED: diazePAM 5 MG TABLET PO PRN (16:24)
[2025-02-11] MEDS ORDERED: ALBUTEROL SO4 HFA INHALER IH PRN (16:26)
[2025-02-11 21:50] VITALS: BMI 31.1
[2025-02-11] MEDS: diazePAM 5 MG TABLET PO SCH (22:56)
[2025-02-11] MEDS: PRENATAL VITAMINS W/ FOLIC ACID TABLET (FP) PO SCH (23:03)
[2025-02-11] MEDS: THIAMINE 100 MG TABLET PO SCH (23:03)
[2025-02-11] MEDS: MELATONIN 5 MG TABLETS PO SCH (23:36)
[2025-02-12] MEDS: FAMOTIDINE 20 MG TABLET PO SCH (10:52)
[2025-02-12 13:46] LABS: CHLORIDE 105 mmol/L (98-107); POTASSIUM 4.3 mmol/L (3.5-5.1); SODIUM 138 mmol/L (136-145)
[2025-02-12 13:49] LABS: CALCIUM 9.2 mg/dL (8.5-10.1)
[2025-02-12 13:50] LABS: ALBUMIN 3.6 g/dl (3.4-5.0); ANION GAP 5 mmol/L (4-13); CO2 28 mmol/L (21-32); GLUCOSE,RANDOM 87 mg/dL (74-106)
[2025-02-12 13:53] LABS: CREATININE 0.7 mg/dL (0.55-1.3); SGOT/AST 21 U/L (15-37); SGPT/ALT 33 U/L (13-61)
[2025-02-12 13:54] LABS: BILIRUBIN,TOTAL 0.6 mg/dL (0.2-1); TOT PROT 7.2 g/dl (6.4-8.2)
[2025-02-12 13:56] LABS: ALK PHOS 74 U/L (45-117)
[2025-02-12] MEDS ORDERED: diphenhydrAMINE HCL 50 MG CAPSULE PO PRN (14:08)
[2025-02-12] MEDS: ESCITALOPRAM OXALATE 10 MG TABLET PO SCH (14:26)
[2025-02-12 14:37] LABS: HEMATOCRIT 35.2 % (32.4-45.2); HEMOGLOBIN 11.6 GM/dL (10.7-15.3); MCH 31.1 pg (25.7-33.7); MCHC 32.9 g/dl (32.0-36.0); MEAN CELL VOLUME 94.3 fl (80-96); MEAN PLT VOLUME 9.2 fl (7.5-11.1); PLATELET COUNT 237 10^3/uL (134-434); RBC 3.74 M/mm3 (3.60-5.2); RDW 15.4 % (11.6-15.6); WHITE BLOOD COUNT 4.2 K/mm3 (4.0-10.0)
[2025-02-12] MEDS: ONDANSETRON *ODT* 4 MG TABLET SL PRN (17:40)
[2025-02-12] MEDS: BUDESONIDE/FORMETEROL FUMARATE 160/4.5 mcg INHALER IH SCH (22:43)
[2025-02-13] MEDS: diazePAM 5 MG TABLET PO SCH (05:42)
[2025-02-13] MEDS: METHOCARBAMOL 500 MG TABLET PO PRN (07:41)
[2025-02-13] MEDS: MAG HYDROX/AL HYDROX/SIMETH 30 ML UNIT-DOSE CUP PO PRN (10:00)
[2025-02-13] MEDS: MAGNESIUM HYDROX 2400MG/30ML ORAL SUSPENSION 30 ML CUP PO PRN (13:32)
[2025-02-13] MEDS ORDERED: BENZOCAINE 28 GM HEMORRHOIDAL OINTMENT RC PRN (14:39)
[2025-02-13] MEDS: DOCUSATE SODIUM 100 MG CAPSULE (FP) PO SCH (23:24)
[2025-02-14] MEDS: diazePAM 5 MG TABLET PO SCH (06:00)
[2025-02-14] MEDS: NALTREXONE HCL 50 MG TABLET PO ONE (10:43)
[2025-02-14 21:31] VITALS: RESP 18
[2025-02-15] MEDS: diazePAM 5 MG TABLET PO ONE (06:05)
[2025-02-15 09:25] VITALS: BP 144/80; PULSE 85; TEMP 97.8
[2025-02-15] MEDS: NALTREXONE HCL 50 MG TABLET PO SCH (09:26)
== END 2025-02-15 09:28 | disposition home or self-care (01) | DRG 897 ==
LOC: YASAS 15:33 → Y6N 21:34
PROVIDERS: ADMIT Allergy & Immunology; ATTEND Allergy & Immunology
PROC: HZ2ZZZZ Detoxification Services for Substance Abuse Treatment (ICD-10-PCS; principal; 2025-02-11)
DX: F10.230 Alcohol dependence with withdrawal, uncomplicated (principal); F33.1 Major depressive disorder, recurrent, moderate; F10.282 Alcohol dependence with alcohol-induced sleep disorder; F10.24 Alcohol dependence with alcohol-induced mood disorder; I10 Essential (primary) hypertension; J45.909 Unspecified asthma, uncomplicated; K21.9 Gastro-esophageal reflux disease without esophagitis; K29.00 Acute gastritis without bleeding; K64.9 Unspecified hemorrhoids; M17.0 Bilateral primary osteoarthritis of knee; Z62.810 Personal history of physical and sexual abuse in childhood; Z91.410 Personal history of adult physical and sexual abuse; Z63.0 Problems in relationship with spouse or partner; Z63.8 Other specified problems related to primary support group; Z87.11 Personal history of peptic ulcer disease; Z88.8 Allergy status to other drugs, medicaments and biological substances
CPT/HCPCS: 36415; 80053; 80305; 80307; 85027; 86780; 93005; 93010; Q0162